=== PATIENT | female | born 1945 ===

== ENCOUNTER 2016-10-25 11:02 | Day surgery (SDC) | payer OTHER ==
[2016-07-19 07:22] VITALS: BMI 24.5
[2016-10-25] MEDS ORDERED: Propofol 10 mg/ml Inj (20 ML) ONE (13:28)
[2016-10-25] MEDS ORDERED: Ampicillin/Sulbactam 1.5 gm Inj ONE (13:45)
[2016-10-25] MEDS ORDERED: Sodium Chloride 0.9% 1,000 ML IV SCH (14:45)
[2016-10-25 15:28] VITALS: BP 116/61; PULSE 68; RESP 18; TEMP 97.7; O2SAT 99
== END 2016-10-25 15:59 | disposition home or self-care (01) ==
LOC: ENDO 11:02
PROVIDERS: ATTEND Internal Medicine Gastroenterology
DX: K51.90 Ulcerative colitis, unspecified, without complications (principal); K64.8 Other hemorrhoids
CPT/HCPCS: 45380; 88305; J0295; J2704; J3010; J7040 ×2

== ENCOUNTER 2017-09-17 13:45 | Emergency (ER) | payer OTHER ==
[2017-09-17 13:45] VITALS: BMI 24.5
--- NOTE | 2017-09-17 15:12 | RAD ---
HISTORY: cough COMPARISON: 07/29/2016 TECHNIQUE: Chest PA and lateral FINDINGS: LUNGS: No active pulmonary disease. PLEURA: No significant pleural effusion identified. No pneumothorax apparent. CARDIOVASCULAR: Normal. OSSEOUS STRUCTURES: No significant abnormalities. VISUALIZED UPPER ABDOMEN: Normal. OTHER FINDINGS: None. IMPRESSION: No active disease.
[2017-09-17] MEDS ORDERED: Amoxicillin-Clav 875-125 mg Tab PO STA (15:14)
--- NOTE | 2017-09-17 15:15 | ED PDOC ---
Arrival/HPI - General Chief Complaint: Cough, Cold, Congestion Time Seen by Provider: 09/17/17 14:29 Historian: Patient - History of Present Illness Narrative History of Present Illness (Text): 09/17/17 15:16 71yo female with PMhx of Cholangitis who present with 3weeks history of cough, nasal congestion, facial pressure and right ear pain. States cough started 3weeks ago. Notes that she was seen by her PMD 2weeks ago and was only given Promethazine. States taking the Promethazine without relieve. She reports multiple history of sinusitis. Denies fever, chills, SOB, diaphoresis, sick contact, travel, any other complaint. Past Medical History - Provider Review Nursing Documentation Reviewed: Yes - Past History Past History: No Previous - Infectious Disease Hx of Infectious Diseases: None - Tetanus Immunization Tetanus Immunization: Unknown - Cardiac Hx Pacemaker: No - Pulmonary Hx Respiratory Disorders: Yes Hx Asthma: Yes Hx Chronic Obstructive Pulmonary Disease (COPD): Yes - Neurological Hx Paralysis: No - HEENT Hx HEENT Disorder: Yes Hx Deafness: Yes (left) - Renal Hx Renal Disorder: No - Endocrine/Metabolic Hx Endocrine Disorders: No - Hematological/Oncological Hx Blood Disorders: Yes Hx Blood Transfusions: No Hx Blood Transfusion Reaction: No Hx Cirrhosis: Yes - Integumentary Hx Dermatological Disorder: No - Musculoskeletal/Rheumatological Hx Musculoskeletal Disorders: Yes - Gastrointestinal Hx Gastrointestinal Disorders: Yes Hx Colitis: Yes (Ulcerative Colitis dx 2010) - Genitourinary/Gynecological Hx Genitourinary Disorders: Yes Hx Hematuria: Yes - Psychiatric Hx Psychophysiologic Disorder: No Hx Emotional Abuse: No Hx Physical Abuse: No Hx Substance Use: No - Past Surgical History Past Surgical History: Non-Contributing - Surgical History Hx Section: Yes Other/Comment: sinus surgery. gallstones - Anesthesia Hx Anesthesia: Yes Hx Anesthesia Reactions: No Hx Malignant Hyperthermia: No - Suicidal Assessment Feels Threatened In Home Enviroment: No Family/Social History - Physician Review Nursing Documentation Reviewed: Yes Family/Social History: Unknown Family HX Smoking Status: Never Smoked Hx Alcohol Use: No Hx Substance Use: No Hx Substance Use Treatment: No Allergies/Home Meds Allergies/Adverse Reactions: Allergies aspirin Allergy (Verified 09/17/17 13:51) ANAPHYLAXIS ibuprofen Allergy (Verified 09/17/17 13:51) ANAPHYLAXIS Home Medications: Home Meds Medication Instructions Recorded Confirmed Albuterol Sulfate [Proair 2 puff IH BID PRN 02/17/16 09/17/17 Respiclick] Fluticasone Nasal [Flonase] 1 spr NS BID 06/28/16 09/17/17 Calcium Carbonate/Vitamin D3 1 tab PO DAILY 10/16/16 09/17/17 [Calcium 500 + Vit D Caplet] Fluticasone/Salmeterol 250/50 1 puff IH BID 10/16/16 09/17/17 [Advair Diskus] Budesonide [Rhinocort Allergy] 1 spray INH DAILY 10/25/16 09/17/17 Ciprofloxacin/Dexamethasone 1 drop TOP DAILY PRN 10/25/16 09/17/17 [Ciprodex Otic] Review of Systems - Physician Review All systems were reviewed & negative as marked: Yes - Review of Systems Constitutional: Normal Eyes: Normal ENT: Other (Right ear pain). absent: Rhinorrhea (Nasal congestion) Respiratory: Cough. absent: SOB, Sputum, Wheezing Cardiovascular: Normal Gastrointestinal: Normal Genitourinary Female: Normal Musculoskeletal: Normal Skin: Normal Neurological: Normal Endocrine: Normal Hemo/Lymphatic: Normal Psychiatric: Normal Physical Exam Vital Signs Reviewed: Yes Vital Signs Temp Pulse Resp BP Pulse Ox 09/17/17 16:29 19 99 09/17/17 16:28 98.0 F 80 18 130/77 96 09/17/17 13:52 99.2 F 99 H 18 129/65 100 Temperature: Afebrile Blood Pressure: Normal Pulse: Regular Respiratory Rate: Normal Appearance: Positive for: Well-Appearing, Non-Toxic, Comfortable Pain Distress: None Mental Status: Positive for: Alert and Oriented X 3 - Systems Exam Head: Present: Atraumatic, Normocephalic Pupils: Present: PERRL Extroacular Muscles: Present: EOMI Conjunctiva: Present: Normal Ears: Present: Erythema (Right TM), Fluid (Right TM). No: Normal Canal, TM Bulging, TM Perf Mouth: Present: Moist Mucous Membranes Nose (Internal): Present: Edematous (B/L turbinates), Other (Tenderness over the frontal and maxillary sinuses) Neck: Present: Normal Range of Motion Respiratory/Chest: Present: Clear to Auscultation, Good Air Exchange. No: Respiratory Distress, Accessory Muscle Use Cardiovascular: Present: Regular Rate and Rhythm, Normal S1, S2. No: Murmurs Abdomen: Present: Normal Bowel Sounds. No: Tenderness, Distention, Peritoneal Signs Back: Present: Normal Inspection Upper Extremity: Present: Normal Inspection. No: Cyanosis, Edema Lower Extremity: Present: Normal Inspection. No: Edema Neurological: Present: GCS=15, CN II-XII Intact, Speech Normal Skin: Present: Warm, Dry, Normal Color. No: Rashes Psychiatric: Present: Alert, Oriented x 3, Normal Insight, Normal Concentration Medical Decision Making ED Course and Treatment: 09/17/17 22:26 Pt in ED for stated history. Her CXR was negative. Rapid flu was negative. PT have sinusitis clinically and was treated with Augmentin. Referred to her PMD. - Lab Interpretations Lab Results: Lab Results 09/17/17 15:22: Influenza Typ A,B (EIA) Negative for flu a/b - RAD Interpretation Radiology Orders: 09/17/17 14:29 CHEST TWO VIEWS (PA/LAT) [RAD] Stat - Medication Orders Current Medication Orders: Discontinued Medications Amoxicillin/Clavulanate Potassium (Augmentin 875 Mg-125 Mg Tab) 1 tab PO STAT STA PRN Reason: Protocol Stop: 09/17/17 15:15 Last Admin: 09/17/17 15:37 Dose: 1 tab Prednisone (Prednisone Tab) 40 mg PO STAT STA Stop: 09/17/17 15:16 Last Admin: 09/17/17 15:37 Dose: 40 mg Disposition/Present on Arrival - Present on Arrival Any Indicators Present on Arrival: No History of DVT/PE: No History of Uncontrolled Diabetes: No Urinary Catheter: No History of Decub. Ulcer: No History Surgical Site Infection Following: None - Disposition Have Diagnosis and Disposition been Completed?: Yes Diagnosis: Sinusitis, Cough Disposition: HOME/ ROUTINE Disposition Time: 16:15 Patient Plan: Discharge Condition: STABLE Discharge Instructions (ExitCare): Sinusitis in Adults Additional Instructions: Take medication as directed Follow up with your doctor Return to ED for any new symptoms Prescriptions: Amoxicillin/Clavulanate [Augmentin 875 MG-125 MG] 1 tab PO BID #14 tab Referrals: [facility] at [facility] [place] [Outside] - Follow up with primary Forms: [employer] (Bahamian)
[2017-09-17 16:29] VITALS: BP 130/77; PULSE 80; TEMP 98
[2017-09-17 16:30] VITALS: RESP 19; O2SAT 99
== END 2017-09-17 16:39 | disposition home or self-care (01) ==
LOC: ED 13:45
DX: J32.9 Chronic sinusitis, unspecified (principal); R05 Cough

== ENCOUNTER 2017-11-11 09:46 | Day surgery (SDC) | payer OTHER ==
[2017-11-11 10:17] VITALS: BMI 23.1
--- NOTE | 2017-11-11 10:29 | ED PDOC ---
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 Patient reports she will be starting chemotherapy tomorrow. Patient notes mild abdominal discomfort, which she has been experiencing intermittently for some time now. Patient denies any fever chills, headache, dizziness, chest pain, shortness of breath, dyspnea on exertion, cough, nausea, vomiting, diarrhea, back pain, neck pain, or any other complaint. PMD: Dr. Nguyen Past Medical History - Provider Review Nursing Documentation Reviewed: Yes - Past History Past History: No Previous - Infectious Disease Hx of Infectious Diseases: None - Tetanus Immunization Tetanus Immunization: Unknown - Cardiac Hx Pacemaker: No - Pulmonary Hx Respiratory Disorders: Yes Hx Asthma: Yes Hx Chronic Obstructive Pulmonary Disease (COPD): Yes - Neurological Hx Paralysis: No - HEENT Hx HEENT Disorder: Yes Hx Deafness: Yes (left) - Renal Hx Renal Disorder: No - Endocrine/Metabolic Hx Endocrine Disorders: No - Hematological/Oncological Hx Blood Disorders: No - Integumentary Hx Dermatological Disorder: No - Musculoskeletal/Rheumatological Hx Musculoskeletal Disorders: Yes - Gastrointestinal Hx Gastrointestinal Disorders: Yes Hx Colitis: Yes (Ulcerative Colitis dx 2011) - Genitourinary/Gynecological Hx Genitourinary Disorders: Yes Hx Hematuria: Yes - Psychiatric Hx Psychophysiologic Disorder: Yes Hx Substance Use: No - Past Surgical History Past Surgical History: Non-Contributing - Surgical History Other/Comment: sinus sx 4x - Anesthesia Hx Anesthesia: Yes Hx Anesthesia Reactions: No Hx Malignant Hyperthermia: No - Suicidal Assessment Feels Threatened In Home Enviroment: No Family/Social History - Physician Review Nursing Documentation Reviewed: Yes Family/Social History: No Known Family HX Smoking Status: Never Smoked Hx Alcohol Use: No Hx Substance Use: No Hx Substance Use Treatment: No Allergies/Home Meds Allergies/Adverse Reactions: Allergies aspirin Allergy (Verified 11/11/17 10:13) ANAPHYLAXIS ibuprofen Allergy (Verified 11/11/17 10:13) ANAPHYLAXIS Home Medications: Home Meds Medication Instructions Recorded Confirmed Albuterol Sulfate [Proair 2 puff IH BID PRN 02/17/16 11/11/17 Respiclick] Fluticasone Nasal [Flonase] 1 spr NS BID 06/28/16 11/11/17 Calcium Carbonate/Vitamin D3 1 tab PO DAILY 10/16/16 11/11/17 [Calcium 500 + Vit D Caplet] Fluticasone/Salmeterol 250/50 1 puff IH BID 10/16/16 11/11/17 [Advair Diskus] Budesonide [Rhinocort Allergy] 1 spray INH DAILY 10/25/16 11/11/17 Ciprofloxacin/Dexamethasone 1 drop TOP DAILY PRN 10/25/16 11/11/17 [Ciprodex Otic] Review of Systems - Physician Review All systems were reviewed & negative as marked: Yes - Review of Systems Constitutional: absent: Fevers, Night Sweats Respiratory: absent: SOB, Cough Cardiovascular: absent: Chest Pain, LUCIA Gastrointestinal: Abdominal Pain. absent: Diarrhea, Nausea, Vomiting Musculoskeletal: absent: Back Pain, Neck Pain Neurological: absent: Headache, Dizziness Physical Exam Vital Signs Reviewed: Yes Vital Signs Temp Pulse Resp BP Pulse Ox 11/11/17 15:08 99 11/11/17 13:05 97.9 F 79 18 136/80 99 11/11/17 12:55 98.4 F 74 16 125/63 99 11/11/17 12:40 98.4 F 74 16 122/63 99 11/11/17 12:25 98.4 F 78 16 133/78 99 11/11/17 10:14 82 17 125/71 100 Blood Pressure: Normal Pulse: Regular Respiratory Rate: Normal Appearance: Positive for: Well-Appearing, Non-Toxic, Comfortable Pain Distress: None Mental Status: Positive for: Alert and Oriented X 3 - Systems Exam Head: Present: Atraumatic, Normocephalic Pupils: Present: PERRL Extroacular Muscles: Present: EOMI Conjunctiva: Present: Normal Mouth: Present: Moist Mucous Membranes Neck: Present: Normal Range of Motion Respiratory/Chest: Present: Clear to Auscultation, Good Air Exchange. No: Respiratory Distress, Accessory Muscle Use Cardiovascular: Present: Regular Rate and Rhythm, Normal S1, S2. No: Murmurs Abdomen: Present: Tenderness (epigastric tenderness), Normal Bowel Sounds, Guarding, Other (Wounds are clean, dry and intact). No: Distention, Peritoneal Signs, Rebound Back: Present: Normal Inspection Upper Extremity: Present: Normal Inspection. No: Cyanosis, Edema Lower Extremity: Present: Normal Inspection. No: Edema Neurological: Present: GCS=15, CN II-XII Intact, Speech Normal Skin: Present: Warm, Dry, Normal Color. No: Rashes Psychiatric: Present: Alert, Oriented x 3, Normal Insight, Normal Concentration Medical Decision Making ED Course and Treatment: 11/11/17 10:28 Impression: Patient is a 72 year old female who presents for port placement. Patient notes old abdominal pain. Differential Diagnosis included but are not limited to: Port placement, Acute on chronic abdominal pain Plan: -- Labs -- Pepcid -- Reassess and disposition Prior Visits: Notes and results from previous visits were reviewed. Patient last seen in ED on 09/17/17 complaining of cough, cold, and congestion. Progress Notes: 11/11/17 10:[address] Wan Allan, accepts patient for port placement. Patient aware of and in agreement with plan. Labs reviewed. - Lab Interpretations Lab Results: 11/11/17 10:30 11/11/17 10:30 Lab Results 11/11/17 10:30: Sodium 141, Potassium 3.8, Chloride 108 H, Carbon Dioxide 23, Anion Gap 14, BUN 13, Creatinine 0.6 L, Est GFR ( Amer) > 60, Est GFR ( Non-Af Amer) > 60, Random Glucose 106, Calcium 8.7, Total Bilirubin 2.2 H, AST 78 H D, ALT 48, Alkaline Phosphatase 266 H, Total Protein 7.4, Albumin 3.1, Globulin 4.4, Albumin/Globulin Ratio 0.7 L, Lipase 201 11/11/17 10:30: WBC 5.4, RBC 3.34 L, Hgb 10.6 L, Hct 31.8 L, MCV 95.2 D, MCH 31.7, MCHC 33.3, RDW 14.8 H, Plt Count 222, MPV 11.6 H, Gran % 64.6, Lymph % ( Auto) 20.4 L, [place] % (Auto) 7.0 H, Eos % (Auto) 7.8 H, Baso % (Auto) 0.2, Gran # 3.49, Lymph # (Auto) 1.1 L, [place] # (Auto) 0.4, Eos # (Auto) 0.4, Baso # (Auto ) 0.01 I have reviewed the lab results: Yes - RAD Interpretation Radiology Orders: 11/11/17 10:08 CAR PERIPHERAL VASCULAR ORDER [VASCULAR] Stat - Medication Orders Current Medication Orders: Acetaminophen (Tylenol 325mg Tab) 650 mg PO Q4 PRN PRN Reason: Pain, Mild (1-3) Sodium Chloride (Sodium Chloride 0.45%) 1,000 mls @ 80 mls/hr IV .[id number] EMILIE Ondansetron HCl (Zofran Inj) 4 mg IVP Q6H PRN PRN Reason: Nausea/Vomiting Oxycodone/Acetaminophen (Percocet 5/325 Mg Tab) 1 tab PO Q4H PRN PRN Reason: Pain, moderate (4-7) Stop: 11/14/17 12:12 Discontinued Medications Famotidine (Pepcid 20mg/50ml Premix) 20 mg in 50 mls @ 100 mls/hr IVPB STAT STA Stop: 11/11/17 10:59 Last Admin: 11/11/17 10:49 Dose: 100 mls/hr eMAR Start Stop Document 11/11/17 10:49 SZA (Rec: 11/11/17 10:50 SZA [id number]) Intravenous Solution Start Date 11/11/17 Start Time 10:50 End Date 11/11/17 End time 11:10 Total Infusion Time 20 - Scribe Statement The provider has reviewed the documentation as recorded by the Scribe Erasmo [employer] Provider Scribe Attestation: All medical record entries made by the Scribe were at my direction and personally dictated by me. I have reviewed the chart and agree that the record accurately reflects my personal performance of the history, physical exam, medical decision making, and the department course for this patient. I have also personally directed, reviewed, and agree with the discharge instructions and disposition. Disposition/Present on Arrival - Present on Arrival Any Indicators Present on Arrival: No History of DVT/PE: No History of Uncontrolled Diabetes: No Urinary Catheter: No History of Decub. Ulcer: No History Surgical Site Infection Following: None - Disposition Have Diagnosis and Disposition been Completed?: Yes Diagnosis: Abdominal pain Disposition: HOME/ ROUTINE Disposition Time: 10:29 Patient Plan: Admission Condition: FAIR
[2017-11-11] MEDS ORDERED: Famotidine 20mg/50ml 20 MG/50 ML BAG IVPB STA (10:30)
[2017-11-11] MEDS ORDERED: Lidocaine 2% Inj (20ml) ONE (10:51)
[2017-11-11 10:52] LABS: BASO # 0.01 K/mm3 (0.0-2.0); BASO % 0.2 % (0.0-3.0); EOS # 0.4 (0.0-0.7); EOS % 7.8 % (1.5-5.0); GRAN # 3.49 (1.4-6.5); GRAN % 64.6 % (50.0-68.0); HEMOGLOBIN 10.6 g/dL (12.0-16.0); LYMPH # 1.1 (1.2-3.4); LYMPH % 20.4 % (22.0-35.0); MEAN CELL VOLUME 95.2 fl (80.0-105.0); MEAN CORPUSCULAR HEMOGLOBIN 31.7 pg (25.0-35.0); MEAN CORPUSCULAR HGB CONC 33.3 g/dl (31.0-37.0); MEAN PLATELET VOLUME 11.6 fl (7.0-11.0); MONO # 0.4 (0.1-0.6); RBC 3.34 10^6/uL (3.5-6.1); RED CELL DISTRIBUTION WIDTH 14.8 % (11.5-14.5); WHITE BLOOD COUNT 5.4 10^3/ul (4.5-11.0)
[2017-11-11 11:01] LABS: ALB/GLOB RATIO 0.7 (1.1-1.8); ALBUMIN 3.1 g/dL (3.0-4.8); ALT/SGPT 48 U/L (7-56); AST/SGOT 78 U/L (14-36); BLOOD UREA NITROGEN 13 mg/dL (7-21); CALCIUM 8.7 mg/dL (8.4-10.5); GFR AFRICAN-AMERICAN > 60; GFR NON-AFRICAN AMERICAN > 60; LIPASE 201 U/L (23-300)
[2017-11-11] MEDS ORDERED: Midazolam 2 MG/2 ML VIAL ONE ×2 (11:29→11:43)
[2017-11-11] MEDS ORDERED: Oxycodone/Acetaminophen 5/325 mg Tab PO PRN (12:11)
[2017-11-11] MEDS ORDERED: Sodium Chloride 0.45% 1,000 ML IV SCH (12:15)
[2017-11-11 12:34] VITALS: O2SAT 99
[2017-11-11 13:26] VITALS: BP 136/80; PULSE 79; RESP 18; TEMP 97.9
--- NOTE | 2017-11-11 13:59 | VASCULAR ---
PROCEDURE: Ultrasound and fluoroscopic right internal jugular venous access port. CLINICAL HISTORY: Cholangiocarcinoma.Venous port for chemotherapy. PHYSICIAN(S): Wan Allan M.D. TECHNIQUE: The relative risks and indications of the procedure were explained to the patient and consent obtained. The patient was placed supine on the arteriogram table and the right neck and chest prepped and draped in the usual sterile fashion. Conscious sedation monitoring was provided throughout the procedure by a nurse. Antibiotics were given prior to the procedure. Under direct ultrasound guidance, the right internal jugular vein was punctured with a micro-puncture set. A 0.035 angled Glidewire was advanced into the IVC. A 4 cm incision was made below the right clavicle and the pocket blunted dissected. A 8 Faroese single-lumen catheter, 18 cm long, was advanced to the SVC/RA junction. The catheter was trimmed and attached to the port. The port aspirates and injects easily. The port was placed in the pocket and closed in 2 layers. The patient tolerated the procedure well. IMPRESSION: Ultrasound and fluoroscopically placed right internal jugular venous access port.
== END 2017-11-11 15:00 | disposition home or self-care (01) ==
LOC: ED 09:46 → SDS 11:07 → CATH 11:07
PROVIDERS: ATTEND Radiology Vascular & Interventional Radiology
DX: C22.1 Intrahepatic bile duct carcinoma (principal); J44.9 Chronic obstructive pulmonary disease, unspecified; Z88.6 Allergy status to analgesic agent
CPT/HCPCS: 36561; 76937; 77001; 80053; 83690; 85025; 96365; 99152; 99153; 99284; C1769; C1788; J1644; J2250; J2405; J3010

== ENCOUNTER 2017-12-24 09:54 | Inpatient (IN) | payer OTHER ==
[2017-12-24] MEDS ORDERED: Sodium Chloride 0.9% 1,000 ML IV STA ×2 (11:25→15:52)
[2017-12-24 12:21] LABS: HEMOGLOBIN 8.1 g/dL (12.0-16.0); LYMPH # 0.5 (1.2-3.4); LYMPH % 53.8 % (22.0-35.0); MEAN CELL VOLUME 92.2 fl (80.0-105.0); MEAN CORPUSCULAR HEMOGLOBIN 31.4 pg (25.0-35.0); MONO # 0.4 (0.1-0.6); MONO % 46.2 % (1.0-6.0); RBC 2.58 10^6/uL (3.5-6.1); RED CELL DISTRIBUTION WIDTH 20.2 % (11.5-14.5)
[2017-12-24 12:30] LABS: ALB/GLOB RATIO 0.6 (1.1-1.8); ALBUMIN 2.3 g/dL (3.0-4.8); ALT/SGPT 50 U/L (7-56); AST/SGOT 43 U/L (14-36); BLOOD UREA NITROGEN 14 mg/dL (7-21); GFR AFRICAN-AMERICAN > 60; GFR NON-AFRICAN AMERICAN > 60
[2017-12-24 12:38] LABS: PLATELET COUNT 31 10^3/uL (120.0-450.0); WHITE BLOOD COUNT 0.9 10^3/ul (4.5-11.0)
[2017-12-24 12:40] LABS: TROPONIN I < 0.01 ng/mL
--- NOTE | 2017-12-24 12:42 | ED PDOC ---
Arrival/HPI - Critical Care Critical Care Minutes: 75 minutes - General Chief Complaint: Weakness/Neurological Deficit Time Seen by Provider: 12/24/17 10:36 - Critical Care Narrative Critical Care (Text): 12/24/17 13:59 This is a 72 yo F with PMH of including Ulcerative Collitis, Cirrhosis, COPD, Giant cell arteritis, primary sclerosing cholangitis, and recently diagnosed Biliary cancer with mets to liver s/p biliary stent placement (October 2017) who presents with progressively worsening diarrhea x1 week, worsening weakness, lethargy, and acute onset jaundice. Hx primarily through daughters at bedside given patient's lethargy, but she is oriented x3 (self, location, year), and is able to follow non-taxing commands appropriately. As per daughters, patient underwent chemotherapy for her biliary cancer most recently 7 days prior (). Since that time, she has developed worsening diarrhea, watery non-bloody, started at 2 times per day as per patient, now up to >5 times per day. Patient denies any emesis, but does report nausea and "spitting up" clear to white phlegm mutiple times per day for the last 2 days. Denies chest pain, shortness of breath, hemoptysis, syncope, or focal weakness, but daughters report she has been generally weak to the point of being essentially bedridden for the last 3 days. Denies fecal incontinence, but has accidents due to being unable to reach the bathroom from her bed in time (as per daughters). Complaining of chills throughout exam despite multiple blankets. 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 Arora, now Dr. Nguyen ([facility]) Past Medical History - Past History Past History: No Previous - Infectious Disease Hx of Infectious Diseases: None - Tetanus Immunization Tetanus Immunization: Unknown - Cardiac Hx Pacemaker: No - Pulmonary Hx Respiratory Disorders: Yes Hx Asthma: Yes Hx Chronic Obstructive Pulmonary Disease (COPD): Yes - Neurological Hx Paralysis: No - HEENT Hx HEENT Disorder: Yes Hx Deafness: Yes (left) - Renal Hx Renal Disorder: No - Endocrine/Metabolic Other/Comment: Stage 4 biliary CA - Hematological/Oncological Hx Cancer: Yes (stage 4 biliary CA) - Integumentary Hx Dermatological Disorder: No - Musculoskeletal/Rheumatological Hx Musculoskeletal Disorders: Yes - Gastrointestinal Hx Gastrointestinal Disorders: Yes Hx Colitis: Yes (Ulcerative Colitis dx 2010) - Genitourinary/Gynecological Hx Genitourinary Disorders: Yes Hx Hematuria: Yes - Psychiatric Hx Psychophysiologic Disorder: Yes Hx Substance Use: No - Past Surgical History Past Surgical History: Non-Contributing - Surgical History Other/Comment: sinus sx 4x - Anesthesia Hx Anesthesia: Yes Hx Anesthesia Reactions: No Hx Malignant Hyperthermia: No - Suicidal Assessment Feels Threatened In Home Enviroment: No Family/Social History Family/Social History: Hypertension, Other (asthma) Smoking Status: Never Smoked Hx Alcohol Use: No Hx Substance Use: No Hx Substance Use Treatment: No Allergies/Home Meds Allergies/Adverse Reactions: Allergies aspirin Allergy (Verified 11/11/17 10:13) ANAPHYLAXIS ibuprofen Allergy (Verified 11/11/17 10:13) ANAPHYLAXIS Home Medications: Home Meds Medication Instructions Recorded Confirmed Albuterol Sulfate [Proair 2 puff IH BID PRN 02/17/16 11/11/17 Respiclick] Fluticasone Nasal [Flonase] 1 spr NS BID 06/28/16 11/11/17 Calcium Carbonate/Vitamin D3 1 tab PO DAILY 10/16/16 11/11/17 [Calcium 500 + Vit D Caplet] Fluticasone/Salmeterol 250/50 1 puff IH BID 10/16/16 11/11/17 [Advair Diskus] Budesonide [Rhinocort Allergy] 1 spray INH DAILY 10/25/16 11/11/17 Ciprofloxacin/Dexamethasone 1 drop TOP DAILY PRN 10/25/16 11/11/17 [Ciprodex Otic] Review of Systems - Physician Review All systems were reviewed & negative as marked: Yes (as per HPI) Physical Exam Vital Signs Reviewed: Yes Temperature: Febrile Blood Pressure: Normal Pulse: Tachycardic Respiratory Rate: Tachypneic Appearance: Positive for: Ill-Appearing, Cachectic, Other (grossly jaundiced) Pain Distress: Mild Mental Status: Positive for: Alert and Oriented X 3, Lethargic. No: Confused - Systems Exam Head: Present: Atraumatic. No: Tenderness, Contusion, Swelling Pupils: Present: PERRL. No: Pinpoint Extroacular Muscles: Present: EOMI. No: Other Conjunctiva: Present: Icteric. No: Injected Mouth: Present: Dry. No: Moist Mucous Membranes, Normal Lips (cracked and dry appearing lips) Nose (External): Present: Atraumatic. No: Abrasion, Laceration Nose (Internal): Present: No Active Bleeding. No: Moist, Epistaxis Neck: Present: Normal Range of Motion. No: JVD Respiratory/Chest: Present: Decreased Breath Sounds. No: Respiratory Distress, Accessory Muscle Use, Wheezes, Rales, Rhonchi Cardiovascular: Present: Normal S1, S2, Peripheal Pulses Present (+1 bilateral radial pulses, unable to palpate LE pulses), Tachycardic. No: Regular Rate and Rhythm, Murmurs, Irregular Rhythm, Bradycardic Abdomen: Present: Distention (not firm or rigid, but distended). No: Tenderness , Normal Bowel Sounds (hyperactive bowel sounds), Feeding Tubes Back: Present: Normal Inspection Upper Extremity: Present: Normal Inspection, Normal ROM (minimal active ROM spontaneously, but passive ROM intact and able to move on command), NORMAL PULSES. No: Cyanosis, Edema, Tenderness, Swelling, Erythema Lower Extremity: Present: Edema (+1 pitting edema in fee/ankles covered by socks , +2 for remaineder of bilateral LE below the knees), Normal ROM (minimal active ROM spontaneously, but passive ROM intact and able to move on command), Swelling, Temperature Abnormalties (cool to palpation). No: Normal Inspection, CALF TENDERNESS, NORMAL PULSES (unable to palpate), Tenderness, Erythema Neurological: Present: GCS=15, Other (minimal spontaneous movements due to lethargy, but active ROM on command appropriate). No: Speech Normal (slow and faint speech, but purposeful and appropriate speech) Skin: Present: Warm, Dry, Other (Grossly icteric). No: Normal Color Lymphatic: Present: Cervical Adenopathy Psychiatric: Present: Oriented x 3, Lethargic. No: Alert (awake but very lethargic), Normal Concentration Vital Signs Temp Pulse Resp BP Pulse Ox 12/24/17 16:14 100 F H 112 H 16 108/56 L 12/24/17 14:25 99.2 F 99 H 18 116/65 99 12/24/17 12:25 100.9 F H 102 H 18 118/61 99 12/24/17 11:33 109 H 18 121/64 99 12/24/17 10:18 102.6 F H 110 H 17 119/63 99 Medical Decision Making Re-evaluation Time: 14:30 Reassessment Condition: Re-examined, Unchanged - Critical Care Critical Care Minutes: 75 minutes ED Course and Treatment: 12/24/17 Patient Seen With Resident: In agreement with resident note which contains more details about the patient. Patient was seen and evaluated with resident. Came up with plan and treatment together. EKG shows sinus tachycardia at [address]/T wave changes. Interpreted by me. (Gilberto Baca) 12/24/17 14:10 Concerning for possible C. Diff colitis given repeated health care setting and recent chemotherapy. Will obtain CT abd pevis, CXR given cough with clear sputum (r/o occult pneumonia), CBC, CMP, Mag, Phos, EKG, blood and urine cultures, UA, stool C diff. Will also given 1L NS over 2 hours given overtly clinically dry appearing in setting of worsening diarrhea. Will start empiric antibiotics after cultures drawn. 12/24/17 15:03 Lab reports WBCs 0.9, Platelets 31, ordered repeat draw to confirm. Given presenting temp 102.6, concern for neutropenic fever, start neutropenic precautions, given Cefepime 2g x1. Chemistries concerning for elevated TBili, CT abd/pelvis notable for possible pancolitis, biliary duct dilation around stent. 12/24/17 15:18 Hgb 8.1, Plt 31, and WBCs 0.9, ANC ~ 50 (confirmed by lab). Case discussed with pt's Heme-onc, Dr. Staton, who ordered Neuopeng 100mg SC (first dose now), 2 units pRBCs (likely falsely elevated Hgb given dehydrated state 2/2 diarrhea) , and platelets from single donor 1 unit. After discussion with Heme-onc, coags returned, notable for INR 2.0 on no anticoagulation; ordered 2 units FFP. After prolonged discussion with daughters regarding Code Status with pt's daughters, especially in light of current condition, daughters report patient currently wishes to remain full code, but agree that family discussion is needed , and that her condition is grave and likely warrants DNR/DNI, pending discussion with patient and her consent. Full code status ordered for now. 12/24/17 15:48 Case discussed with PMD, Dr. Nguyen. Agrees with admission, requests ICU eval for ICU placement. ID consult (Dr. Cheng) and GI consult (Dr. Altman) placed as per his orders. Magnetic Grinder Operator notified regarding consult, agrees to come evaluate patient. 12/24/17 16:22 Seen by Magnetic Grinder Operator Dr. Ojeda, agrees to ICU admision. Admission orders place. Started on Merrem and Vanco as per ID. Patient seen, reviewed, and discussed with attending, Dr. Baca. ([facility]) - Lab Interpretations Lab Results: 12/24/17 12:00 12/24/17 12:00 Lab Results 12/24/17 16:05: Fibrin Degrad Products >10 <40 ug/ml 12/24/17 15:51: Fibrinogen 358 12/24/17 14:02: POC Glucose (mg/dL) 85 12/24/17 13:30: Blood Type O POSITIVE, Antibody Screen Negative, Crossmatch See Detail, BBK History Checked Patient has bt 12/24/17 13:30: JEAN MARIE, Poly Interpret Negative 12/24/17 13:25: Manual Plt Count 30 L* 12/24/17 13:25: Lactate Dehydrogenase 293 L 12/24/17 13:25: PT 23.1 H, INR 2.00 H, APTT 31.9 12/24/17 12:00: Sodium 134, Potassium 3.8, Chloride 104, Carbon Dioxide 21, Anion Gap 12, BUN 14, Creatinine 0.5 L, Est GFR ( Amer) > 60, Est GFR ( Non-Af Amer) > 60, Random Glucose 94, Calcium 8.0 L, Phosphorus 2.9, Magnesium 1.7, Total Bilirubin 7.8 H, AST 43 H D, ALT 50, Alkaline Phosphatase 187 H D, Troponin I < 0.01, Total Protein 5.9, Albumin 2.3 L, Globulin 3.6, Albumin/ Globulin Ratio 0.6 L 12/24/17 12:00: WBC 0.9 L* D, RBC 2.58 L, Hgb 8.1 L D, Hct 23.8 L, MCV 92.2 D, MCH 31.4, MCHC 34.0, RDW 20.2 H, Plt Count 31 L*, Gran % 0.0 L, Lymph % (Auto) 53.8 H, Mcculloch % (Auto) 46.2 H, Eos % (Auto) 0.0 L, Baso % (Auto) 0.0, Gran # 0.00 L, Lymph # (Auto) 0.5 L, Mcculloch # (Auto) 0.4, Eos # (Auto) 0.0, Baso # (Auto ) 0.00, Neutrophils % (Manual) 4 L, Lymphocytes % (Manual) 53 H, Monocytes % ( Manual) 43 H, Platelet Evaluation Low, Hypochromasia 1+ - RAD Interpretation Radiology Orders: 12/24/17 11:25 ABD & PELVIS W/O PO OR IV CONT [CT] Stat CHEST ONE VIEW [RAD] Stat - Medication Orders Current Medication Orders: Meropenem 500 mg/ Sodium (Chloride) 50 mls @ 100 mls/hr IVPB Q8 EMILIE PRN Reason: Protocol Stop: 12/24/17 22:29 Vancomycin HCl (Vancomycin 1gm) 1 gm in 250 mls @ 167 mls/hr IVPB Q12H EMILIE PRN Reason: Protocol Metronidazole (Flagyl) 500 mg in 100 mls @ 100 mls/hr IVPB Q8 EMILIE PRN Reason: Protocol Sodium Chloride (Sodium Chloride 0.9%) 1,000 mls @ 999 mls/hr IV .Q1H1M STA Stop: 12/24/17 16:52 Dextrose/Sodium Chloride (Dextrose 5%/0.9% Ns 1000 Ml) 1,000 mls @ 100 mls/hr IV .Q10H EMILIE Discontinued Medications Sodium Chloride (Sodium Chloride 0.9%) 1,000 mls @ 500 mls/hr IV .Q2H STA Stop: 12/24/17 13:24 Last Admin: 12/24/17 11:39 Dose: 500 mls/hr eMAR Start Stop Document 12/24/17 11:39 LA (Rec: 12/24/17 11:40 LA [id number]) Intravenous Solution Start Date 06/06/18 Start Time 11:39 End Date 12/24/17 End time 13:39 Total Infusion Time 120 Cefepime HCl (Maxipime 2gm) 2 gm in 100 mls @ 100 mls/hr IVPB STAT STA PRN Reason: Protocol Stop: 12/24/17 13:47 Last Admin: 12/24/17 14:38 Dose: 100 mls/hr eMAR Start Stop Document 12/24/17 14:38 LA (Rec: 12/24/17 14:39 LA [id number]) Intravenous Solution Start Date 12/24/17 Start Time 14:39 End Date 12/24/17 End time 15:39 Total Infusion Time 60 Pantoprazole Sodium (Protonix Inj) 40 mg IVP STAT STA Stop: 12/24/17 16:01 Disposition/Present on Arrival - Present on Arrival Any Indicators Present on Arrival: No History of DVT/PE: No History of Uncontrolled Diabetes: No Urinary Catheter: No History of Decub. Ulcer: No History Surgical Site Infection Following: None - Disposition Have Diagnosis and Disposition been Completed?: Yes Disposition Time: 16:30 Isolation: Special Contact (Neutropenic precautions) Patient Plan: Admission, ICU - Disposition Diagnosis: Cholangiocarcinoma, Neutropenic fever Disposition: HOSPITALIZED Patient Problems: Current Active Problems Problem Status Onset Cholangiocarcinoma Acute Condition: CRITICAL Forms: [employer] ([place])
[2017-12-24] MEDS ORDERED: Cefepime IV 2 gm in NS 2 GM/100 ML BAG IVPB STA (12:48)
[2017-12-24 12:57] LABS: HYPOCHROMIA 1+; LYMPHOCYTE 53 % (22.0-35.0); MONOCYTE 43 % (1.0-6.0); NEUTROPHIL 4 % (50.0-70.0); PLATELET ESTIMATE LOW (NORMAL)
--- NOTE | 2017-12-24 13:06 | RAD ---
PROCEDURE: CHEST RADIOGRAPH, 1 VIEW HISTORY: weakness, intermittently productive cough COMPARISON: 09/17/2017 FINDINGS: LUNGS: Clear. PLEURA: No pneumothorax or pleural fluid seen. CARDIOVASCULAR: Normal. OSSEOUS STRUCTURES: No significant abnormalities. VISUALIZED UPPER ABDOMEN: Normal. OTHER FINDINGS: Right-sided Port-A-Cath IMPRESSION: No active disease.
--- NOTE | 2017-12-24 13:07 | CT ---
PROCEDURE: CT Abdomen and Pelvis without intravenous contrast HISTORY: worsening diarrhea x7 days, assess for collitis COMPARISON: Noncontrast abdomen pelvis CT examination 07/19/2016. TECHNIQUE: Helical CT of the abdomen and pelvis was performed without oral or intravenous contrast as per referring physician request. Contrast dose: None Radiation dose: Total exam DLP = 395.33 mGy-cm. This CT exam was performed using one or more of the following dose reduction techniques: Automated exposure control, adjustment of the mA and/or kV according to patient size, and/or use of iterative reconstruction technique. FINDINGS: Lack of intravenous and oral contrast agents significantly limits interpretation. LOWER THORAX: Limited bilateral basilar patchy and linear atelectasis with underlying fibrosis not completely excluded. No pleural or pericardial effusion. Mild cardiomegaly identified. LIVER: Marked intrahepatic biliary dilatation is suggested, greater the left and right lobes liver with underlying hepatic lesions not excluded, particularly at the central liver and at the watershed zone between the left and right lobes anteriorly. A lengthy biliary stents identified from the level of the duodenum up to the main hepatic duct and possibly the main right lobe duct. Postop changes are identified at the right lobe liver once again. GALLBLADDER AND BILE DUCTS: Prior cholecystectomy. Persistent stranding seen in the gallbladder in local mesenteric fat. PANCREAS: Unremarkable. No gross lesion or ductal dilatation. SPLEEN: Unremarkable. ADRENALS: Unremarkable. No mass. KIDNEYS AND URETERS: Unremarkable. No hydronephrosis. No solid mass. VASCULATURE: Unremarkable. No aortic aneurysm. BOWEL: The stomach is only minimally distended with fluid and retained air. The bowel is not appear obstructed however there is right greater than left pericolic reaction and mural thickening follows a similar pattern greater the right than left colon segments with the transverse colon collapsed but likely significantly affected as well. The distal rectosigmoid follows the left hemicolon and does not appear tremendously thickened. There is mild ascites distributed in the perihepatic perisplenic spaces well as the bilateral pericolic gutters and the inferior dependent pelvis. Pattern suspicious for segmental or potential near ramos colitis. No abscess or free air is grossly evident. The cecum appears somewhat ectopic and is at the mid right flank anteriorly. No free intraperitoneal gas collection. APPENDIX: Not identified. Sinusitis is not favored difficult to evaluate for in this exam. PERITONEUM: Please see bowel section above. LYMPH NODES: Shotty retroperitoneal lymph nodes are identified without gross enlargement. BLADDER: Unremarkable. REPRODUCTIVE: Unremarkable. BONES: No acute fracture. OTHER FINDINGS: None. IMPRESSION: 1. Interval finding suspicious for at least segmental colitis affecting the proximal and mid large-bowel with the left hemicolon borderline affected. Pancolitis not excluded completely. Mesenteric reaction is seen local to the colon with mild abdominal and pelvic ascites present. The lack of oral and intravenous contrast limits evaluation No definite free air or abscess appreciable grossly. 2. Gross intrahepatic biliary dilatation with lengthy Wallstent radiating at either the main hepatic duct or the main right lobe hepatic duct and extending to duodenum. The lack of intravenous contrast limits the evaluation. 3. Prior cholecystectomy.
[2017-12-24 14:06] LABS: PARTIAL THROMBOPLASTIN TIME 31.9 Seconds (25.1-36.5); PROTHROMBIN TIME 23.1 SECONDS (9.4-12.5)
--- NOTE | 2017-12-24 15:47 | CARD ---
APPROVED REPORT EKG Measurement Heart [id number] <Conclusion> Sinus tachycardia NSSTW changes
[2017-12-24 16:42] LABS: HEPATITIS B SURFACE AG Negative (NEGATIVE)
[2017-12-24 16:47] LABS: HEPATITIS A IGM NEGATIVE (NEGATIVE); HEPATITIS B CORE AB NEGATIVE (NEGATIVE)
--- NOTE | 2017-12-24 16:48 | CP.PCM.CON ---
History of Present Illness - History of Present Illness History of Present Illness: General surgery consult for Dr. Rachel Gracia, PGY-1 Pt S & E at bedside at 1615 73F w/PMH sig for cholangiocarcinoma s/p metal biliary stent placement, aborted Whipple procedure (11/05) on chemo therapy, ulcerative colitis, primary sclerosing cholangitis consulted for pancolitis. Pt reports last chemo on 12/17 (has had 3-4 rounds) with subsequent onset of generalized weakness, lethargy, jaundice, diarrhea (#2-5 daily), nausea, emesis after oral intake, mouth pain, decreased appetite. Denies hematemesis, hematuria, hematochezia, fevers, chills , headache, other complaints. PMH: Cholangiocarcinoma s/p metal biliary stent placement, aborted Whipple procedure (11/05) on chemo therapy, Rheumatoid arthritis, osteoarthritis, fibromyalgia, asthma, pancreatitis, Ulcerative colitis, cirrhosis, Giant cell arteritis, primary sclerosing cholangitis PSH: Aborted Whipple, multiple biliary stents All:ASA, Ibuprofen SH: Hx tobacco use, denies ETOH, illicit drug PMD: Dr Nguyen Past Patient History - Infectious Disease Hx of Infectious Diseases: None - Tetanus Immunizations Tetanus Immunization: Unknown - Past Social History Smoking Status: Never Smoked - CARDIAC Hx Pacemaker: No - PULMONARY Hx Respiratory Disorders: Yes Hx Asthma: Yes Hx Chronic Obstructive Pulmonary Disease (COPD): Yes - NEUROLOGICAL Hx Paralysis: No - HEENT Hx HEENT Problems: Yes Hx Deafness: Yes (left) - RENAL Hx Chronic Kidney Disease: No - ENDOCRINE/METABOLIC Other/Comment: Stage 4 biliary CA - HEMATOLOGICAL/ONCOLOGICAL Hx Cancer: Yes (stage 4 biliary CA) - INTEGUMENTARY Hx Dermatological Problems: No - MUSCULOSKELETAL/RHEUMATOLOGICAL Hx Musculoskeletal Disorders: Yes - GASTROINTESTINAL Hx Gastrointestinal Disorders: Yes Hx Colitis: Yes (Ulcerative Colitis dx 2010) - GENITOURINARY/GYNECOLOGICAL Hx Genitourinary Disorders: Yes Hx Hematuria: Yes - PSYCHIATRIC Hx Psychophysiologic Disorder: Yes Hx Substance Use: No - SURGICAL HISTORY Other/Comment: sinus sx 4x - ANESTHESIA Hx Anesthesia: Yes Hx Anesthesia Reactions: No Hx Malignant Hyperthermia: No Meds Allergies/Adverse Reactions: Allergies Allergy/AdvReac Type Severity Reaction Status Date / Time aspirin Allergy ANAPHYLAXIS Verified 11/11/17 10:13 ibuprofen Allergy ANAPHYLAXIS Verified 04/24/18 10:13 - Medications Medications: Current Medications Meropenem 500 mg/ Sodium (Chloride) 50 mls @ 100 mls/hr IVPB Q8 EMILIE PRN Reason: Protocol Stop: 12/24/17 22:29 Vancomycin HCl (Vancomycin 1gm) 1 gm in 250 mls @ 167 mls/hr IVPB Q12H EMILIE PRN Reason: Protocol Metronidazole (Flagyl) 500 mg in 100 mls @ 100 mls/hr IVPB Q8 EMILIE PRN Reason: Protocol Sodium Chloride (Sodium Chloride 0.9%) 1,000 mls @ 999 mls/hr IV .Q1H1M STA Stop: 12/24/17 16:52 Dextrose/Sodium Chloride (Dextrose 5%/0.9% Ns 1000 Ml) 1,000 mls @ 100 mls/hr IV .Q10H EMILIE Physical Exam - Constitutional Appears: Non-toxic, No Acute Distress, Cachectic - Head Exam Head Exam: ATRAUMATIC, NORMAL INSPECTION, NORMOCEPHALIC - Eye Exam Eye Exam: EOMI, Scleral icterus - ENT Exam ENT Exam: Mucous Membranes Moist. absent: Normal Exam (multiple sores over oral cavity, white plaques, removable with tongue depressor) - Neck Exam Neck exam: Positive for: Normal Inspection - Respiratory Exam Respiratory Exam: NORMAL BREATHING PATTERN. absent: Chest Wall Tenderness Additional comments: Right portacath in place - Cardiovascular Exam Cardiovascular Exam: REGULAR RHYTHM, +S1, +S2 - GI/Abdominal Exam GI & Abdominal Exam: Soft. absent: Distended, Guarding, Hernia, Tenderness Additional comments: well healed umbilical scar - Extremities Exam Extremities exam: Positive for: pedal edema (bilateral) - Neurological Exam Neurological exam: Alert, CN II-XII Intact, Oriented x3 - Psychiatric Exam Psychiatric exam: Normal Affect, Normal Mood - Skin Skin Exam: Diaphoretic, Intact, Warm Additional comments: grossly jaundiced Results - Vital Signs Recent Vital Signs: Last Vital Signs Temp 99.7 F H 12/24/17 16:41 Pulse 114 H 12/24/17 16:41 Resp 16 12/24/17 16:41 BP 113/55 L 12/24/17 16:41 Pulse Ox 99 12/24/17 16:41 - Labs Result Diagrams: 12/24/17 12:00 12/24/17 12:00 Labs: Laboratory Results - last 24 hr 12/24/17 12/24/1712/24/18 12:00 12:00 12:00 WBC 0.9 L* D RBC 2.58 L Hgb 8.1 L D Hct 23.8 L MCV 92.2 D MCH 31.4 MCHC 34.0 RDW 20.2 H Plt Count 31 L* Manual Plt Count Gran % 0.0 L Lymph % (Auto) 53.8 H Ramsey % (Auto) 46.2 H Eos % (Auto) 0.0 L Baso % (Auto) 0.0 Gran # 0.00 L Lymph # (Auto) 0.5 L Ramsey # (Auto) 0.4 Eos # (Auto) 0.0 Baso # (Auto) 0.00 Neutrophils % (Manual) 4 L Lymphocytes % (Manual) 53 H Monocytes % (Manual) 43 H Platelet Evaluation Low Hypochromasia 1+ PT INR APTT Fibrinogen Fibrin Degrad Products Sodium 134 Potassium 3.8 Chloride 104 Carbon Dioxide 21 Anion Gap 12 BUN 14 Creatinine 0.5 L Est GFR ( Amer) > 60 Est GFR (Non-Af Amer) > 60 POC Glucose (mg/dL) Random Glucose 94 Calcium 8.0 L Phosphorus 2.9 Magnesium 1.7 Total Bilirubin 7.8 H AST 43 H D ALT 50 Alkaline Phosphatase 187 H D Lactate Dehydrogenase Troponin I < 0.01 Total Protein 5.9 Albumin 2.3 L Globulin 3.6 Albumin/Globulin Ratio 0.6 L Hep Bs Antigen Negative Blood Type Antibody Screen JEAN MARIE, Poly Interpret Crossmatch BBK History Checked 12/24/17 12/24/17 12/24/17 13:25 13:25 13:25 WBC RBC Hgb Hct MCV MCH MCHC RDW Plt Count Manual Plt Count 30 L* Gran % Lymph % (Auto) Ramsey % (Auto) Eos % (Auto) Baso % (Auto) Gran # Lymph # (Auto) Ramsey # (Auto) Eos # (Auto) Baso # (Auto) Neutrophils % (Manual) Lymphocytes % (Manual) Monocytes % (Manual) Platelet Evaluation Hypochromasia PT 23.1 H INR 2.00 H APTT 31.9 Fibrinogen Fibrin Degrad Products Sodium Potassium Chloride Carbon Dioxide Anion Gap BUN Creatinine Est GFR ( Amer) Est GFR (Non-Af Amer) POC Glucose (mg/dL) Random Glucose Calcium Phosphorus Magnesium Total Bilirubin AST ALT Alkaline Phosphatase Lactate Dehydrogenase 293 L Troponin I Total Protein Albumin Globulin Albumin/Globulin Ratio Hep Bs Antigen Blood Type Antibody Screen JEAN MARIE, Poly Interpret Crossmatch BBK History Checked 12/24/17 12/24/17 12/24/17 13:30 13:30 14:02 WBC RBC Hgb Hct MCV MCH MCHC RDW Plt Count Manual Plt Count Gran % Lymph % (Auto) Ramsey % (Auto) Eos % (Auto) Baso % (Auto) Gran # Lymph # (Auto) Ramsey # (Auto) Eos # (Auto) Baso # (Auto) Neutrophils % (Manual) Lymphocytes % (Manual) Monocytes % (Manual) Platelet Evaluation Hypochromasia PT INR APTT Fibrinogen Fibrin Degrad Products Sodium Potassium Chloride Carbon Dioxide Anion Gap BUN Creatinine Est GFR ( Amer) Est GFR (Non-Af Amer) POC Glucose (mg/dL) 85 Random Glucose Calcium Phosphorus Magnesium Total Bilirubin AST ALT Alkaline Phosphatase Lactate Dehydrogenase Troponin I Total Protein Albumin Globulin Albumin/Globulin Ratio Hep Bs Antigen Blood Type O POSITIVE Antibody Screen Negative JEAN MARIE, Poly Interpret Negative Crossmatch See Detail BBK History Checked Patient has bt 12/24/17 12/24/17 15:51 16:05 WBC RBC Hgb Hct MCV MCH MCHC RDW Plt Count Manual Plt Count Gran % Lymph % (Auto) Ramsey % (Auto) Eos % (Auto) Baso % (Auto) Gran # Lymph # (Auto) Ramsey # (Auto) Eos # (Auto) Baso # (Auto) Neutrophils % (Manual) Lymphocytes % (Manual) Monocytes % (Manual) Platelet Evaluation Hypochromasia PT INR APTT Fibrinogen 358 Fibrin Degrad Products >10 <40 ug/ml Sodium Potassium Chloride Carbon Dioxide Anion Gap BUN Creatinine Est GFR ( Amer) Est GFR (Non-Af Amer) POC Glucose (mg/dL) Random Glucose Calcium Phosphorus Magnesium Total Bilirubin AST ALT Alkaline Phosphatase Lactate Dehydrogenase Troponin I Total Protein Albumin Globulin Albumin/Globulin Ratio Hep Bs Antigen Blood Type Antibody Screen JEAN MARIE, Poly Interpret Crossmatch BBK History Checked Assessment & Plan - Assessment and Plan (Free Text) Assessment: 72F PMH sig for cholangiocarcinoma s/p metal biliary stent placement, aborted Whipple procedure (11/05) on chemo therapy, ulcerative colitis, primary sclerosing cholangitis consulted for pancolitisw/PMH sig for cholangiocarcinoma s/p biliary stent placement & aborted Whipple consulted for colitis Plan: IVF Abx PO mouth wash for fungal infection Magic mouth wash for oral sore pain FU C diff FU stool cx No surgical intervention at this time due to prognosis/cinical condition Will follow peripherally Further mgmt as per primary & GI teams DW attending Samia, PGY-1 - Date & Time Date: 12/24/17 Time: 16:50
[2017-12-24 16:58] LABS: HEPATITIS C ANTIBODY NEGATIVE (NEGATIVE)
--- NOTE | 2017-12-24 17:06 | PCM.SEPTIC ---
Sepsis Progress Note - Reassessment Type Reassessment Type: Non-invasive reassessment - Non Invasive Reassessment Were the most recent vital sign reviewed: Yes Vital Sign (Latest): Temp Pulse Resp BP Pulse Ox 99.7 F H 114 H 16 113/55 L 99 12/24/17 16:41 12/24/17 16:41 12/24/17 16:41 12/24/17 16:41 12/24/17 16:41 Cardiovascular: Yes: Tachycardia Respiratory: Yes: Normal Breath Sounds Capillary Refill: Delayed Pulses: Decreased Radial, Decreased Dorsalis Pedis, Decreased Posterior Tibialis Skin: Pale
[2017-12-24] MEDS ORDERED: Aluminum Hydroxide/Magnesium 30 ML, DiphenhydrAMINE 75 MG, Lidocaine 2% Viscous 30 ML PO PRN (17:26)
[2017-12-24] MEDS: Meropenem 500 MG in Sodium Chloride 0.9% 50 ML IVPB SCH (19:14)
[2017-12-24 19:31] LABS: ALB/GLOB RATIO 0.6 (1.1-1.8); ALBUMIN 2.2 g/dL (3.0-4.8); ALT/SGPT 49 U/L (7-56); AST/SGOT 39 U/L (14-36); BLOOD UREA NITROGEN 14 mg/dL (7-21); CALCIUM 7.7 mg/dL (8.4-10.5); GFR AFRICAN-AMERICAN > 60; GFR NON-AFRICAN AMERICAN > 60
[2017-12-24] MEDS: metroNIDAZOLE IV 500 mg/100 ml 500 MG/100 ML BAG IVPB SCH (19:44)
[2017-12-24] MEDS: Vancomycin 1gm in NS 250ml 1 GM/250 ML BAG IVPB SCH (22:29)
[2017-12-24] MEDS: Nystatin 100,000 Units/ml Oral Susp 5 ml UD PO SCH (22:30)
[2017-12-25] MEDS: Dextrose 5%/0.9% NS 1,000 ML IV SCH ×2 (01:36→22:31)
--- NOTE | 2017-12-25 03:12 | HP ---
HISTORY OF PRESENT ILLNESS: The patient is a 72-year-old female with a history of metastatic cholangiocarcinoma status post biliary stent placement by Dr. Daily at [facility] on 11/05/2017. Currently receiving chemotherapy by Dr. Staton. Presents to the emergency department today with progressive lethargy, weakness and jaundice. The patient is noted to be pancytopenic with a coagulopathy and is admitted to the intensive care unit for further evaluation and management. The patient also complains of nausea, diarrhea, and stomatitis. There is no melena, no bright red blood per rectum. No fevers, chills or headache. PAST MEDICAL HISTORY: Includes history of colitis, asthma, fibromyalgia. There is no history of diabetes, hypertension or heart disease. PAST SURGICAL HISTORY: Significant for multiple sinus surgeries or chronic sinusitis. CURRENT MEDICATIONS: The patient is on no current medications other than chemotherapy. ALLERGIES: SHE HAS ALLERGIES TO ASPIRIN AND IBUPROFEN. SOCIAL HISTORY: The patient denies any history of alcohol, tobacco or drug use. FAMILY HISTORY: Noncontributory. REVIEW OF SYSTEMS: As above. PHYSICAL EXAMINATION: GENERAL: The patient is a cachectic female, in no acute distress. VITAL SIGNS: Blood pressure 113/55, pulse 114, temperature 99.7, T-max 100.9, respiratory rate 16. HEENT: Head is normocephalic, atraumatic. There is bilateral temporal wasting and scleral icterus. NECK: Supple. No thyromegaly. No carotid bruit. LUNGS: Show few scattered crepitations. HEART: Regular rate and rhythm. ABDOMEN: Soft with mild epigastric tenderness to palpation with no guarding or rebound. Bowel sounds are normoactive. EXTREMITIES: Show no cyanosis or clubbing. There is bilateral 1 to 2+ anasarca. There is bilateral muscle wasting and atrophy. NEUROLOGIC: The patient is awake and oriented without focal sensory or motor deficits. SKIN: Jaundiced. LABORATORY DATA: WBC 0.9, hemoglobin 8.1, hematocrit 23.8, platelets of 31. Prothrombin time is 23.1. Fibrinogen is 358. Chemistry; sodium 134, potassium 3.8, chloride 104, CO2 of 21, BUN 14, creatinine 0.5, calcium 8, bilirubin 7.8, alkaline phosphatase 187, AST 43, LDH 293. Troponin is less than 0.01. Albumin is 2.3. IMAGING STUDIES: Chest x-ray shows no active disease. CT scan of the abdomen and pelvis shows possible colitis with intrahepatic biliary dilatation, stent is present and history of cholecystectomy in the past. IMPRESSION: 1. Pancytopenia, status post chemotherapy, rule out sepsis, rule out disseminated intravascular coagulation. 2. Metastatic cholangiocarcinoma, status post biliary stent placement. PLAN: The patient will be admitted to the intensive care unit. We will obtain Infectious Disease consultation with Dr. Cheng for intravenous antibiotics. Routine cultures. We will obtain Hematology/Oncology consultation by Dr. Staton. Prognosis is very poor. Family is aware and will advise regarding advance directives. DARIEN Light MD
[2017-12-25] MEDS: Meropenem 500 MG in Sodium Chloride 0.9% 50 ML IVPB SCH (03:18)
[2017-12-25] MEDS: Vancomycin 1gm in NS 250ml 1 GM/250 ML BAG IVPB SCH ×2 (04:04→16:15)
[2017-12-25 06:37] VITALS: BMI 24.9
[2017-12-25] MEDS: metroNIDAZOLE IV 500 mg/100 ml 500 MG/100 ML BAG IVPB SCH ×4 (07:01→22:31)
[2017-12-25 07:27] LABS: BASO # 0.01 K/mm3 (0.0-2.0); BASO % 0.9 % (0.0-3.0); EOS % 0.9 % (1.5-5.0); GRAN % 9.3 % (50.0-68.0); LYMPH # 0.3 (1.2-3.4); LYMPH % 30.6 % (22.0-35.0); MEAN PLATELET VOLUME 9.7 fl (7.0-11.0); MONO # 0.6 (0.1-0.6); MONO % 58.3 % (1.0-6.0)
[2017-12-25 08:01] LABS: PLATELET COUNT 38 10^3/uL (120.0-450.0); WHITE BLOOD COUNT 1.1 10^3/ul (4.5-11.0)
[2017-12-25] MEDS ORDERED: Sodium Chloride 0.9% 1,000 ML IV STA (08:02)
--- NOTE | 2017-12-25 08:08 | CON ---
DATE: 12/24/2017 HISTORY OF PRESENT ILLNESS: This is a 72-year-old lady with a history of ulcerative colitis, sclerosing cholangitis, cholangiocarcinoma, status post cholecystectomy, who presented to [facility] 1 week after last cycle of chemotherapy with complaint of 7-day duration of diarrhea. It was not melena. The patient also denies nausea or vomiting. Here in [facility], CTAP showed extensive colitis A liter of normal saline bolus as well as septic workup and empiric antibiotics were started. VBG with lactic acid was ordered. ICU consult was requested for further management and monitoring. She was also found to have severe neutropenia. PAST MEDICAL HISTORY: Ulcerative colitis, sclerosing cholangitis, and cholangiocarcinoma. The patient has COPD. PAST SURGICAL HISTORY: Status post cholecystectomy. FAMILY HISTORY: Noncontributory. ALLERGIES: ASPIRIN AND IBUPROFEN. SOCIAL HISTORY: No alcohol or illicit drug abuse. No tobacco smoking. REVIEW OF SYSTEM: A review of 12-organ system other than mentioned in history of present illness is negative. MEDICATION AT HOME: Advair, Flonase, vitamin D and calcium, albuterol p.r.n. PHYSICAL EXAMINATION: VITAL SIGNS: Temperature 99.7 (T-max however is 102.6), heart rate 114, blood pressure 115/55, respiratory rate 16, oxygen saturation 99% on room air. HEENT: Head and neck atraumatic. LUNGS: Clear auscultation bilaterally. HEART: Regular rate and rhythm. S1 and S2 normal. ABDOMEN: Soft. Mildly tender diffusely. MUSCULOSKELETAL: Trace bilateral pedal and ankle edema. NEUROLOGICAL: The patient moves all extremities spontaneously. SKIN: Moist. PSYCHIATRIC: The patient is alert, awake, in mild respiratory distress. LABORATORY DATA: Labs, sodium 134, potassium 3.8, chloride 104, carbon dioxide 21, BUN 14, creatinine 0.5, glucose 85, magnesium 1.7, AST 43, ALT 50, total bilirubin 7.8, LDH 293. Troponin less than 0.01. WBC 0.9, platelet count 30. CAT scan of the abdomen and pelvis revealed interval findings suspicious for at least segmental colitis affecting the proximal and mid large bowel with a left hemicolon, borderline affected, pancolitis not excluded completely, mesenteric reaction is seen local to the colon with mild abdominal and pelvic ascites present. The lack of oral and intravenous contrast limits evaluation. No definite free air or abscess appreciated grossly. Gross intrahepatic biliary dilatation with lengthy wall stand radiating at either the main hepatic duct or the main right lobe hepatic duct, and extending to duodenum. The lack of intravenous contrast limits evaluation. (This finding was discussed with Dr. Altman, who suggested that that may be related to chronic sclerosing cholangitis). EKG, sinus tachycardia. ASSESSMENT AND PLAN: This is a 72-year-old lady with a history of sclerosing cholangitis, ulcerative colitis, and cholangiocarcinoma status post cholecystectomy, who presented with neutropenic fever, very low absolute neutrophil count, and typhlitis one week post last cycle of chemotherapy. The patient likely has severe sepsis. Fluid resuscitation is ongoing. Septic workup started. VBG with lactic acid ordered. Procalcitonin is ordered. Blood and urine culture were sent. ID consult requested. Meanwhile, the patient received dose of meropenem and vancomycin. Flagyl was added. Stool for Clostridium difficile was added as well. We will trend lactic acid level. At present time, we will have low threshold for intubation. The patient will be going to ICU for further management and monitoring. We will continue with GI prophylaxis. We will maintain platelet count above 10 in the absence of overt bleeding. We will maintain hemoglobin above 8. The patient received one dose of Granix to boost WBC count. We will continue target euvolemia, euglycemia, normothermia and oxygen saturation more than 90%. ccm time 40 min Barron Ojeda MD SHAREE
[2017-12-25 08:24] LABS: VENOUS BLOOD GAS BASE EXCESS -3.6 mmol/L (0.0-2.0); VENOUS BLOOD GAS PO2 137 mm/Hg (30-55); VENOUS BLOOD PH 7.39 (7.32-7.43)
[2017-12-25 08:35] LABS: ALB/GLOB RATIO 0.7 (1.1-1.8); ALBUMIN 2.5 g/dL (3.0-4.8); ALT/SGPT 40 U/L (7-56); AST/SGOT 39 U/L (14-36); BLOOD UREA NITROGEN 14 mg/dL (7-21); CALCIUM 7.9 mg/dL (8.4-10.5); GFR AFRICAN-AMERICAN > 60; GFR NON-AFRICAN AMERICAN > 60
--- NOTE | 2017-12-25 09:09 | CP.PCM.CON ---
History of Present Illness - History of Present Illness History of Present Illness: Palliative consult requested by family copied to Dr. Jeremias Nguyen Reason: Goals of care 72 year old female with history of cholangiocarcinoma,last chemotherapy one week ago. She presented on with diarrhea of seven day duration. She denied melena, nausea, vomitingchest pain, shortness of breath, hemoptysis or syncope. She was found to be pancytopenic. CT of abdomen/pelvis showed segmental colitis affecting the proximal and mid large bowel and left left hemicolon borderline, no abscess or free air, gross intrahepatic billiary dilatation with lengthy Wallstent radiating at either the main hepatic duct or the main right lobe hepatic duct and extending into the duodenum, prior cholecystectomy.Chest x ray no active disease. Labs WBC 1.1, Hgb 8.0, Plt 38, NA 135, K 3.7, BUN 14, Creat. 0.5, Neel 7.7, Total Bili 7.9, AST 39, Alk Phos 170, LDH 293, Albumin 2.2, hepaits screening negative, venous lactate Vital Signs: P 95, BP 113/50, R 16, O2 sat 98% PMHx: ulcerative colitis, sclerosing cholangitis, metastatic cholangiocarcinoma , COPD, giant cell arteritis, migraines,rheumatoid arthritis, osteoarthritis, fibromyalgia, asthma. Social History: Former smoker, no alcohol or drug use. Lives independently. Family History: Non contributory. Advance Care Planning: The patient does not have an Advanced Directive. He daughter Caridad Perez is POA. Review of Systems: As per HPI, 12 point review negative Past Patient History - Infectious Disease Hx of Infectious Diseases: None - Tetanus Immunizations Tetanus Immunization: Unknown - Past Social History Smoking Status: Never Smoked - CARDIAC Hx Pacemaker: No - PULMONARY Hx Respiratory Disorders: Yes Hx Asthma: Yes Hx Chronic Obstructive Pulmonary Disease (COPD): Yes - NEUROLOGICAL Hx Neurological Disorder: Yes Hx Migraine: Yes - HEENT Hx HEENT Problems: Yes Hx Deafness: Yes (left) - RENAL Hx Chronic Kidney Disease: No - ENDOCRINE/METABOLIC Other/Comment: Stage 4 biliary CA - HEMATOLOGICAL/ONCOLOGICAL Hx Cancer: Yes (STAGE 4 BILIARY CA) Hx Hepatitis A: Yes - INTEGUMENTARY Hx Dermatological Problems: No - MUSCULOSKELETAL/RHEUMATOLOGICAL Hx Musculoskeletal Disorders: Yes - GASTROINTESTINAL Hx Gastrointestinal Disorders: Yes Other/Comment: BILIARY CA-STAGE 4. ULCERATIVE COLOITIS - GENITOURINARY/GYNECOLOGICAL Hx Genitourinary Disorders: Yes Hx Hematuria: Yes - PSYCHIATRIC Hx Psychophysiologic Disorder: Yes - SURGICAL HISTORY Hx Surgeries: Yes (SINUS SURGERIES X'S 4) Hx Cardiac Catheterization: Yes (11/05) Other/Comment: sinus sx 4x - ANESTHESIA Hx Anesthesia: Yes Hx Anesthesia Reactions: No Hx Malignant Hyperthermia: No Meds Allergies/Adverse Reactions: Allergies Allergy/AdvReac Type Severity Reaction Status Date / Time aspirin Allergy ANAPHYLAXIS Verified 11/11/17 10:13 ibuprofen Allergy ANAPHYLAXIS Verified 11/11/17 10:13 - Medications Medications: Current Medications Al Hydrox/Mg Hydrox/Simethicone 30 ml/Diphenhydramine HCl 75 mg/Lidocaine 30 ml 0 ml PO Q2H PRN PRN Reason: Mouth/Throat Pain Last Admin: 12/25/17 04:04 Dose: 30 ml Vancomycin HCl (Vancomycin 1gm) 1 gm in 250 mls @ 167 mls/hr IVPB Q12H [facility]ILIE PRN Reason: Protocol Last Admin: 12/25/17 04:04 Dose: 167 mls/hr Metronidazole (Flagyl) 500 mg in 100 mls @ 100 mls/hr IVPB Q8 [facility]ILIE PRN Reason: Protocol Last Admin: 12/25/17 07:01 Dose: 100 mls/hr Dextrose/Sodium Chloride (Dextrose 5%/0.9% Ns 1000 Ml) 1,000 mls @ 100 mls/hr IV .Q10H [facility]ILIE Last Admin: 12/25/17 01:36 Dose: 100 mls/hr Meropenem (Merrem Iv 1 Gm Premix) 50 mls @ 100 mls/hr IVPB Q8 EMILIE PRN Reason: Protocol Stop: 01/01/18 06:31 Sodium Chloride (Sodium Chloride 0.9%) 1,000 mls @ 999 mls/hr IV .Q1H1M STA Stop: 12/25/17 09:02 Nystatin (Nystatin Oral Susp) 5 ml PO QID EMILIE Last Admin: 12/24/17 22:30 Dose: 5 ml Pantoprazole Sodium (Protonix Inj) 40 mg IVP DAILY EMILIE Physical Exam - Constitutional Appears: Chronically Ill - Head Exam Head Exam: NORMOCEPHALIC - Eye Exam Eye Exam: PERRL, Scleral icterus - ENT Exam ENT Exam: Mucous Membranes Moist, Normal Oropharynx - Neck Exam Neck exam: Positive for: Normal Inspection - Respiratory Exam Respiratory Exam: Decreased Breath Sounds, NORMAL BREATHING PATTERN - Cardiovascular Exam Cardiovascular Exam: REGULAR RHYTHM, +S1, +S2 - GI/Abdominal Exam GI & Abdominal Exam: Distended, Normal Bowel Sounds - Extremities Exam Extremities exam: Positive for: pedal edema - Back Exam Additional comments: vertebral tenderness in lumbar area - Neurological Exam Neurological exam: Alert, Oriented x3 - Skin Skin Exam: Dry, Pallor - Additional Findings Additional findings: Palliative performance scale rating 50% Results - Vital Signs Recent Vital Signs: Last Vital Signs Temp 97.7 F 12/25/17 06:00 Pulse 95 H 12/25/17 06:40 Resp 16 12/25/17 06:40 BP 113/51 L 12/25/17 06:30 Pulse Ox 98 12/25/17 06:40 - Labs Result Diagrams: 12/26/17 05:40 12/26/17 08:00 Labs: Laboratory Results - last 24 hr 12/24/17 12/24/17 12/25/17 19:18 21:48 02:40 WBC RBC Hgb Hct MCV MCH MCHC RDW Plt Count MPV Gran % Lymph % (Auto) Perkins % (Auto) Eos % (Auto) Baso % (Auto) Gran # Lymph # (Auto) Perkins # (Auto) Eos # (Auto) Baso # (Auto) pO2 VBG pH VBG pCO2 VBG HCO3 VBG Total CO2 VBG O2 Sat (Calc) VBG Base Excess VBG Potassium Glucose Lactate FiO2 Sodium 135 Potassium 3.7 Chloride 105 Carbon Dioxide 20 L Anion Gap 14 BUN 14 Creatinine 0.5 L Est GFR ( Amer) > 60 Est GFR (Non-Af Amer) > 60 POC Glucose (mg/dL) 81 68 Random Glucose 94 Calcium 7.7 L Phosphorus Magnesium 1.7 Total Bilirubin 7.9 H AST 39 H ALT 49 Alkaline Phosphatase 170 H Total Protein 5.8 Albumin 2.2 L Globulin 3.5 Albumin/Globulin Ratio 0.6 L Venous Blood Potassium 12/25/17 12/25/17 12/25/17 06:04 07:00 07:00 WBC 1.1 L* D RBC 2.50 L Hgb 8.0 L Hct 23.5 L MCV 94.0 MCH 32.0 MCHC 34.0 RDW 19.0 H Plt Count 38 L* MPV 9.7 Gran % 9.3 L Lymph % (Auto) 30.6 Perkins % (Auto) 58.3 H Eos % (Auto) 0.9 L Baso % (Auto) 0.9 Gran # 0.10 L Lymph # (Auto) 0.3 L Perkins # (Auto) 0.6 Eos # (Auto) 0.0 Baso # (Auto) 0.01 pO2 VBG pH VBG pCO2 VBG HCO3 VBG Total CO2 VBG O2 Sat (Calc) VBG Base Excess VBG Potassium Glucose Lactate FiO2 Sodium Potassium Chloride Carbon Dioxide Anion Gap BUN Creatinine Est GFR ( Amer) Est GFR (Non-Af Amer) POC Glucose (mg/dL) 73 Random Glucose Calcium Phosphorus 3.0 Magnesium Total Bilirubin AST ALT Alkaline Phosphatase Total Protein Albumin Globulin Albumin/Globulin Ratio Venous Blood Potassium 12/25/17 12/25/17 08:15 08:15 WBC RBC Hgb Hct MCV MCH MCHC RDW Plt Count MPV Gran % Lymph % (Auto) Perkins % (Auto) Eos % (Auto) Baso % (Auto) Gran # Lymph # (Auto) Perkins # (Auto) Eos # (Auto) Baso # (Auto) pO2 137 H VBG pH 7.39 VBG pCO2 34.0 L VBG HCO3 20.6 L VBG Total CO2 21.6 L VBG O2 Sat (Calc) 100.5 H VBG Base Excess -3.6 L VBG Potassium 3.3 L Glucose 73 Lactate 2.3 H FiO2 21.0 Sodium 137 136.0 Potassium 3.5 L Chloride 108 H 109.0 H Carbon Dioxide 19 L Anion Gap 14 BUN 14 Creatinine 0.5 L Est GFR ( Amer) > 60 Est GFR (Non-Af Amer) > 60 POC Glucose (mg/dL) Random Glucose 73 Calcium 7.9 L Phosphorus Magnesium Total Bilirubin 7.5 H AST 39 H ALT 40 Alkaline Phosphatase 137 H Total Protein 5.9 Albumin 2.5 L Globulin 3.4 Albumin/Globulin Ratio 0.7 L Venous Blood Potassium 3.3 L Assessment & Plan - Assessment and Plan (Free Text) Assessment: 72 year old female with history of metastatic cholangiocarcinoma, s/p bilary stent, s/p chemotherapy one week ago who is admitted with sepsis ulcerate colitis, pancytopenia and diarrhea. The patient is weak, lethargic Complains of low back pain. States she is still having diarrhea. POA/daughter, Caridad Van contacted via phone. Daughter unable to speak with me at this time. Daughter intends to call me later today for goals of care discussion. I spoke with POA via phone later in the day. She is aware of mother's medical status and poor prognosis. Daughter understands the necessity of advance care planning. Daughter intends to speak with her mother about resuscitation status. Daughter requests that I speak with mother as well regarding advance care planningl Daughter also aware that her mother can no longer live alone. Daughter interested in senior care placement with hospice care. Advised daughter that I would have high school social science teacher contact her regarding options for placement. Time spent in goals of care and advance care planning discussion with daughter, 30 minutes Plan: Goals of care and advance care planning. Sepsis: Cultures/ procalcitionin pending. Merrem, Flagyl started Pancytopenia: Monitor CBC daily,Granix, transfuse as needed. Neutropenic precautions
--- NOTE | 2017-12-25 10:05 | PN ---
DATE: 12/25/2017 SUBJECTIVE: The patient is seen and examined at bedside. She is comfortable. She denies any pain and her night was uneventful. However, she had a lot of diarrhea still. PHYSICAL EXAMINATION: VITAL SIGNS: Blood pressure 98/45 with mean arterial pressure 67, heart rate 100, oxygen saturation 97%, respiratory rate 19. ENT: Head and neck atraumatic. LUNGS: Clear to auscultation bilaterally. HEART: Regular rate and rhythm. S1, S2 normal. ABDOMEN: Soft, nontender, nondistended. MUSCULOSKELETAL: No C/C/E. NEUROLOGICAL: The patient moves all extremities spontaneously. SKIN: Moist. PSYCHIATRIC: The patient is alert, awake and oriented x3. LABORATORY DATA: WBC 1.1; hemoglobin 8 and relatively stable; platelet count 38, up from 31. MEDICATIONS: D5 normal saline at 100 mL per hour, Flagyl, meropenem, Protonix, Granix, vancomycin. ASSESSMENT AND PLAN: This 72-year-old lady with history of ulcerative colitis, sclerosing cholangitis, and cholangiocarcinoma with metastases to the liver who presented to [facility] with neutropenic fever and diarrhea approximately 1 week after receiving last cycle of chemotherapy. The patient was given a liter of normal saline as a bolus and D5 normal saline continued as maintenance fluid at 100 mL/hour. Stool was ordered, but was unable to get for C diff assay. Nevertheless, the patient was started on Flagyl and broad-spectrum antibiotics. Septic workup initiated. Blood and urine culture were sent. Procalcitonin is pending. The patient continued to have diarrhea. The patient was started on Granix with white cell count somewhat improved compared with yesterday. The patient is afebrile now; however, overnight T-max was 101.7. We will continue to target euvolemia, euglycemia, normothermia and oxygen saturation more than 90%. We will continue with DVT and GI prophylaxis. Addendum: despite fluctuating BPs, diarrhea remarkably slowed down as per patient, only once today. received 2L bolus, subjectively is doing better ccm time 40 min Barron Ojeda MD [facility]
[2017-12-25] MEDS: Nystatin 100,000 Units/ml Oral Susp 5 ml UD PO SCH ×5 (11:00→22:28)
--- NOTE | 2017-12-25 11:15 | CP.PCM.PN ---
Subjective - Date & Time of Evaluation Date of Evaluation: 12/25/17 Time of Evaluation: 08:00 - Subjective Subjective: GI Progress Note for Dom Richey PGY2 Patient seen and examined at bedside. There were no acute overnight events as per nursing staff. Patient has been having greenish loose stool. She has mild RUQ pain. She denies chest pain, shortness of breath, nausea/vomiting/diarrhea, fever or chills. Objective - Vital Signs/Intake and Output Vital Signs (last 24 hours): Temp Pulse Resp BP Pulse Ox 97.7 F 95 H 16 113/51 L 98 12/25/17 06:00 12/25/17 06:40 12/25/17 06:40 12/25/17 06:30 12/25/17 06:40 Intake and Output: 12/25/17 12/25/17 06:59 18:59 Intake Total 3520 Balance 3520 - Medications Medications: Current Medications Al Hydrox/Mg Hydrox/Simethicone 30 ml/Diphenhydramine HCl 75 mg/Lidocaine 30 ml 0 ml PO Q2H PRN PRN Reason: Mouth/Throat Pain Last Admin: 12/25/17 04:04 Dose: 30 ml Vancomycin HCl (Vancomycin 1gm) 1 gm in 250 mls @ 167 mls/hr IVPB Q12H EMILIE PRN Reason: Protocol Last Admin: 12/25/17 04:04 Dose: 167 mls/hr Metronidazole (Flagyl) 500 mg in 100 mls @ 100 mls/hr IVPB Q8 EMILIE PRN Reason: Protocol Last Admin: 12/25/17 07:01 Dose: 100 mls/hr Dextrose/Sodium Chloride (Dextrose 5%/0.9% Ns 1000 Ml) 1,000 mls @ 100 mls/hr IV .Q10H EMILIE Last Admin: 12/25/17 01:36 Dose: 100 mls/hr Meropenem (Merrem Iv 1 Gm Premix) 50 mls @ 100 mls/hr IVPB Q8 EMILIE PRN Reason: Protocol Stop: 01/01/18 06:31 Nystatin (Nystatin Oral Susp) 5 ml PO QID EMILIE Last Admin: 12/24/17 22:30 Dose: 5 ml Pantoprazole Sodium (Protonix Inj) 40 mg IVP DAILY EMILIE - Labs Labs: 12/25/17 07:00 12/25/17 08:15 PT 23.1 SECONDS (9.4-12.5) H 12/24/17 13:25 INR 2.00 (0.93-1.08) H 12/24/17 13:25 APTT 31.9 Seconds (25.1-36.5) 12/24/17 13:25 - Constitutional Appears: No Acute Distress - Head Exam Head Exam: ATRAUMATIC, NORMAL INSPECTION, NORMOCEPHALIC - Eye Exam Eye Exam: Scleral icterus - Respiratory Exam Respiratory Exam: Clear to Ausculation Bilateral, NORMAL BREATHING PATTERN. absent: Rales, Rhonchi - Cardiovascular Exam Cardiovascular Exam: REGULAR RHYTHM, +S1, +S2. absent: Gallop, Rubs, Murmur - GI/Abdominal Exam GI & Abdominal Exam: Soft, Tenderness (mild RUQ/epigastric ), Normal Bowel Sounds. absent: Guarding, Rigid, Rebound - Neurological Exam Neurological Exam: Alert, Awake, CN II-XII Intact - Skin Skin Exam: Dry, Warm Assessment and Plan - Assessment and Plan (Free Text) Assessment: This is a 72yo female with past medical history COPD, giant cell arteritis, Ulcerative colitis, cholangiocarcinoma s/p cholecystectomy and chemotherapy 2 weeks who is admitted 1. Sepsis with neutropenic fever secondary to pancolitis 2. Pancytopenia 3. cholangiocarcinoma on chemotherapy 4. Primary sclerosing cholangitis 5. Cirrhosis s/p ERCP with biliary stent 6. Ulcerative colitis 7. COPD 8. Giant cell arteritis Plan: Continue IV antibiotics. Neutropenic precautions. ID on consult. Will continue to monitor LFTs and CBC. Oncology is on consult. Palliative care is on consult. Prognosis is guarded. Diet as tolerated. Case seen, reviewed and discussed with Dr. Altman. Dom Zazueta PGY2
--- NOTE | 2017-12-25 11:54 | CP.PCM.PN ---
Subjective - Date & Time of Evaluation Date of Evaluation: 12/25/17 Time of Evaluation: 07:50 - Subjective Subjective: Patient seen and examined this AM. patient complains of persistent abdominal "soreness" but denies nausea and vomiting. Patient is having blood administered for low hemoglobin Objective - Vital Signs/Intake and Output Vital Signs (last 24 hours): Temp Pulse Resp BP Pulse Ox 97.7 F 95 H 16 113/51 L 98 12/25/17 06:00 12/25/17 06:40 12/25/17 06:40 12/25/17 06:30 12/25/17 06:40 Intake and Output: 12/25/17 12/25/17 06:59 18:59 Intake Total 3520 Balance 3520 - Medications Medications: Current Medications Al Hydrox/Mg Hydrox/Simethicone 30 ml/Diphenhydramine HCl 75 mg/Lidocaine 30 ml 0 ml PO Q2H PRN PRN Reason: Mouth/Throat Pain Last Admin: 12/25/17 04:04 Dose: 30 ml Vancomycin HCl (Vancomycin 1gm) 1 gm in 250 mls @ 167 mls/hr IVPB Q12H EMILIE PRN Reason: Protocol Last Admin: 12/25/17 04:04 Dose: 167 mls/hr Metronidazole (Flagyl) 500 mg in 100 mls @ 100 mls/hr IVPB Q8 EMILIE PRN Reason: Protocol Last Admin: 12/25/17 07:01 Dose: 100 mls/hr Dextrose/Sodium Chloride (Dextrose 5%/0.9% Ns 1000 Ml) 1,000 mls @ 100 mls/hr IV .Q10H [facility] Last Admin: 12/25/17 01:36 Dose: 100 mls/hr Meropenem (Merrem Iv 1 Gm Premix) 50 mls @ 100 mls/hr IVPB Q8 EMILIE PRN Reason: Protocol Stop: 01/01/18 06:31 Nystatin (Nystatin Oral Susp) 5 ml PO QID [facility] Last Admin: 12/24/17 22:30 Dose: 5 ml Pantoprazole Sodium (Protonix Inj) 40 mg IVP DAILY EMILIE - Labs Labs: 12/25/17 07:00 12/25/17 08:15 PT 23.1 SECONDS (9.4-12.5) H 12/24/17 13:25 INR 2.00 (0.93-1.08) H 12/24/17 13:25 APTT 31.9 Seconds (25.1-36.5) 12/24/17 13:25 - Constitutional Appears: No Acute Distress, Cachectic, Chronically Ill - Head Exam Head Exam: ATRAUMATIC, NORMOCEPHALIC - Eye Exam Eye Exam: EOMI, Scleral icterus - ENT Exam ENT Exam: Mucous Membranes Moist, Normal Oropharynx - Respiratory Exam Respiratory Exam: NORMAL BREATHING PATTERN. absent: Accessory Muscle Use, Respiratory Distress - Cardiovascular Exam Cardiovascular Exam: RRR - GI/Abdominal Exam GI & Abdominal Exam: Distended, Tenderness (mild diffuse tenderness). absent: Rigid, Soft, Rebound - Extremities Exam Extremities Exam: absent: Calf Tenderness, Tenderness - Neurological Exam Neurological Exam: Alert, Awake, Oriented x3 - Psychiatric Exam Psychiatric exam: Normal Affect, Normal Mood - Skin Skin Exam: Dry, Warm Additional comments: jaundiced Assessment and Plan - Assessment and Plan (Free Text) Assessment: 72F with cholangiocarcinoma and abdominal pain Plan: No surgical intervention indicated at this time--patient has advanced malignant disease which is likely contributing to her abdominal pain. Patient is currently hemodynamically stable and a very poor surgical candidate, and symptoms are improving Continue management per the ICU and ID PRN pain and nausea medication Please contact surgical team for any further questions or concerns Discussed with Dr. Rolf Villatoro, PGY2
[2017-12-25 12:05] LABS: VENOUS BLOOD GAS BASE EXCESS -3.4 mmol/L (0.0-2.0); VENOUS BLOOD GAS PO2 68 mm/Hg (30-55); VENOUS BLOOD PH 7.41 (7.32-7.43)
--- NOTE | 2017-12-25 12:48 | CP.PCM.CON ---
History of Present Illness - History of Present Illness History of Present Illness: 72 year old female with PMH of primary sclerosing cholangitis with liver cirrhosis S/P ERCP and biliary stent placement, cholangiocarcinoma S/P cholecystectomy and on chemotherapy last session 2 weeks ago, Ulcerative colitis , history of MSSA sinusitis, COPD, allergic rhinitis, giant cell arteritis [place] [facility] [place] of generalized weakness, nausea and watery diarrhea for the past week. She has subjective fevers intermittently, no headache or dizziness, no sore throat, no rhinorrhea, no cough or SOB, no chest pain, has abdominal discomfort, no dysuria, no pain at the port-a-cath site. In the ED, CT scan of the abdomen and pelvis showed pancolitis. She is also noted to be neutropenic and also had fever noted in the ED. Infectious Diseases consult is requested to further evaluate and manage. Review of Systems - Review of Systems All systems: reviewed and no additional remarkable complaints except (as per HPI ) Past Patient History - Infectious Disease Hx of Infectious Diseases: None - Tetanus Immunizations Tetanus Immunization: Unknown - Past Social History Smoking Status: Never Smoked - CARDIAC Hx Pacemaker: No - PULMONARY Hx Respiratory Disorders: Yes Hx Asthma: Yes Hx Chronic Obstructive Pulmonary Disease (COPD): Yes - NEUROLOGICAL Hx Neurological Disorder: Yes Hx Migraine: Yes - HEENT Hx HEENT Problems: Yes Hx Deafness: Yes (left) - RENAL Hx Chronic Kidney Disease: No - ENDOCRINE/METABOLIC Other/Comment: Stage 4 biliary CA - HEMATOLOGICAL/ONCOLOGICAL Hx Cancer: Yes (STAGE 4 BILIARY CA) Hx Hepatitis A: Yes - INTEGUMENTARY Hx Dermatological Problems: No - MUSCULOSKELETAL/RHEUMATOLOGICAL Hx Musculoskeletal Disorders: Yes - GASTROINTESTINAL Hx Gastrointestinal Disorders: Yes Other/Comment: BILIARY CA-STAGE 4. ULCERATIVE COLOITIS - GENITOURINARY/GYNECOLOGICAL Hx Genitourinary Disorders: Yes Hx Hematuria: Yes - PSYCHIATRIC Hx Psychophysiologic Disorder: Yes - SURGICAL HISTORY Hx Surgeries: Yes (SINUS SURGERIES X'S 4) Hx Cardiac Catheterization: Yes (11/05) Other/Comment: sinus sx 4x - ANESTHESIA Hx Anesthesia: Yes Hx Anesthesia Reactions: No Hx Malignant Hyperthermia: No Meds Allergies/Adverse Reactions: Allergies Allergy/AdvReac Type Severity Reaction Status Date / Time aspirin Allergy ANAPHYLAXIS Verified 11/11/17 10:13 ibuprofen Allergy ANAPHYLAXIS Verified 11/11/17 10:13 - Medications Medications: Current Medications Al Hydrox/Mg Hydrox/Simethicone 30 ml/Diphenhydramine HCl 75 mg/Lidocaine 30 ml 0 ml PO Q2H PRN PRN Reason: Mouth/Throat Pain Last Admin: 12/25/17 04:04 Dose: 30 ml Vancomycin HCl (Vancomycin 1gm) 1 gm in 250 mls @ 167 mls/hr IVPB Q12H EMILIE PRN Reason: Protocol Last Admin: 12/25/17 04:04 Dose: 167 mls/hr Metronidazole (Flagyl) 500 mg in 100 mls @ 100 mls/hr IVPB Q8 EMILIE PRN Reason: Protocol Last Admin: 12/25/17 00:00 Dose: 100 mls/hr Dextrose/Sodium Chloride (Dextrose 5%/0.9% Ns 1000 Ml) 1,000 mls @ 100 mls/hr IV .Q10H [facility] Last Admin: 12/25/17 01:36 Dose: 100 mls/hr Meropenem (Merrem Iv 1 Gm Premix) 50 mls @ 100 mls/hr IVPB Q8 EMILIE PRN Reason: Protocol Stop: 01/01/18 06:31 Nystatin (Nystatin Oral Susp) 5 ml PO QID [facility] Last Admin: 12/24/17 22:30 Dose: 5 ml Physical Exam - Constitutional Appears: Cachectic, Chronically Ill - Head Exam Head Exam: NORMAL INSPECTION - Neck Exam Neck exam: Negative for: Meningismus - Respiratory Exam Respiratory Exam: Decreased Breath Sounds Additional comments: right anterior chest wall port-a-cath in place - Cardiovascular Exam Cardiovascular Exam: +S1, +S2 - GI/Abdominal Exam GI & Abdominal Exam: Soft. absent: Tenderness Results - Vital Signs Recent Vital Signs: Last Vital Signs Temp 98.2 F 12/25/17 02:40 Pulse 96 H 12/25/17 02:50 Resp 19 12/25/17 02:50 BP 99/37 L 12/25/17 02:30 Pulse Ox 99 12/25/17 02:50 - Labs Result Diagrams: 12/25/17 07:00 12/25/17 08:15 Labs: Laboratory Results - last 24 hr 12/24/17 12/24/17 12/25/17 19:18 21:48 02:40 Sodium 135 Potassium 3.7 Chloride 105 Carbon Dioxide 20 L Anion Gap 14 BUN 14 Creatinine 0.5 L Est GFR ( Amer) > 60 Est GFR (Non-Af Amer) > 60 POC Glucose (mg/dL) 81 68 Random Glucose 94 Calcium 7.7 L Magnesium 1.7 Total Bilirubin 7.9 H AST 39 H ALT 49 Alkaline Phosphatase 170 H Total Protein 5.8 Albumin 2.2 L Globulin 3.5 Albumin/Globulin Ratio 0.6 L 12/25/17 06:04 Sodium Potassium Chloride Carbon Dioxide Anion Gap BUN Creatinine Est GFR ( Amer) Est GFR (Non-Af Amer) POC Glucose (mg/dL) 73 Random Glucose Calcium Magnesium Total Bilirubin AST ALT Alkaline Phosphatase Total Protein Albumin Globulin Albumin/Globulin Ratio Assessment & Plan - Assessment and Plan (Free Text) Plan: Assessment Severe Sepsis with febrile neutropenia, due to pancolitis, R/O bacteremia from port history of sepsis from biliary tree as the source in a patient with primary sclerosing cholangitis with liver cirrhosis S/P ERCP and biliary stent placement - S/P biopsy of the enlarged lymph nodes adjacent to the common bile duct cholangiocarcinoma on chemotherapy S/P cholecystectomy Ulcerative colitis history of MSSA sinusitis COPD allergic rhinitis giant cell arteritis Plan started patient on Vancomycin, Merrem pending blood, stool cx, stool for C. diff and start PO Vancomycin and IV Flagyl will monitor clinically overall prognosis is poor discussed with Dr. Altman
[2017-12-25] MEDS: Meropenem IV 1 gm in NS 50 ML IVPB SCH ×2 (13:18→22:27)
[2017-12-25] MEDS: Vancomycin 25 MG/ML PO SCH ×3 (14:07→22:30)
[2017-12-25] MEDS ORDERED: Potassium Phosphate 3 mmol/ml Inj IV ONE (16:19)
[2017-12-25] MEDS ORDERED: POTASSIUM PHOSPHATE IVPB ONE (16:30)
[2017-12-25] MEDS ORDERED: SODIUM CHLORIDE IVPB ONE (16:30)
--- NOTE | 2017-12-25 16:30 | CP.PCM.PN ---
Subjective - Date & Time of Evaluation Date of Evaluation: 12/25/17 Time of Evaluation: 15:40 - Subjective Subjective: feels somewhat better today, denies chest or abd pain, reports pain in mouth Objective - Vital Signs/Intake and Output Vital Signs (last 24 hours): Temp Pulse Resp BP Pulse Ox 97.7 F 91 H 23 100/55 L 98 12/25/17 06:00 12/25/17 13:00 12/25/17 13:00 12/25/17 13:00 12/25/17 13:00 Intake and Output: 12/25/17 12/25/17 06:59 18:59 Intake Total 3520 Balance 3520 - Medications Medications: Current Medications Al Hydrox/Mg Hydrox/Simethicone 30 ml/Diphenhydramine HCl 75 mg/Lidocaine 30 ml 0 ml PO Q2H PRN PRN Reason: Mouth/Throat Pain Last Admin: 12/25/17 04:04 Dose: 30 ml Vancomycin HCl (Vancomycin 1gm) 1 gm in 250 mls @ 167 mls/hr IVPB Q12H EMILIE PRN Reason: Protocol Last Admin: 12/25/17 04:04 Dose: 167 mls/hr Metronidazole (Flagyl) 500 mg in 100 mls @ 100 mls/hr IVPB Q8 EMILIE PRN Reason: Protocol Last Admin: 12/25/17 13:19 Dose: 100 mls/hr Dextrose/Sodium Chloride (Dextrose 5%/0.9% Ns 1000 Ml) 1,000 mls @ 100 mls/hr IV .Q10H [facility] Last Admin: 12/25/17 01:36 Dose: 100 mls/hr Meropenem (Merrem Iv 1 Gm Premix) 50 mls @ 100 mls/hr IVPB Q8 EMILIE PRN Reason: Protocol Stop: 01/01/18 06:31 Last Admin: 12/25/17 13:18 Dose: 100 mls/hr Potassium Phosphate 9.75 mmole (/ Sodium Chloride) 253.25 mls @ 42.5 mls/hr IVPB ONCE ONE Stop: 12/25/17 22:27 Nystatin (Nystatin Oral Susp) 5 ml PO QID [facility] Last Admin: 12/25/17 11:00 Dose: 5 ml Pantoprazole Sodium (Protonix Inj) 40 mg IVP DAILY [facility] Last Admin: 12/25/17 12:54 Dose: 40 mg Vancomycin HCl (Vancocin 25 Mg/Ml (Oral Use)) 125 mg PO QID EMILIE PRN Reason: Protocol Last Admin: 12/25/17 14:07 Dose: 125 mg - Labs Labs: 12/25/17 07:00 12/25/17 08:15 PT 23.1 SECONDS (9.4-12.5) H 12/24/17 13:25 INR 2.00 (0.93-1.08) H 12/24/17 13:25 APTT 31.9 Seconds (25.1-36.5) 12/24/17 13:25 - Respiratory Exam Respiratory Exam: Clear to Ausculation Bilateral, Wheezes - Cardiovascular Exam Cardiovascular Exam: REGULAR RHYTHM - GI/Abdominal Exam GI & Abdominal Exam: Soft, Normal Bowel Sounds - Extremities Exam Extremities Exam: Pedal Edema - Neurological Exam Neurological Exam: Alert, Awake Assessment and Plan (1) Cholangiocarcinoma Status: Acute (2) Neutropenic fever Status: Acute (3) Abdominal pain Status: Acute - Assessment and Plan (Free Text) Plan: continue IV Abx, monitor blood counts, on neutropenic precautions, prognosis remains very poor
[2017-12-25 16:38] LABS: ALB/GLOB RATIO 0.7 (1.1-1.8); ALBUMIN 2.2 g/dL (3.0-4.8); ALT/SGPT 34 U/L (7-56); AST/SGOT 30 U/L (14-36); BLOOD UREA NITROGEN 13 mg/dL (7-21); CALCIUM 7.6 mg/dL (8.4-10.5); GFR AFRICAN-AMERICAN > 60; GFR NON-AFRICAN AMERICAN > 60
--- NOTE | 2017-12-25 22:46 | CON ---
DATE: LOCATION: Seen in the ICU at the request of Dr. Nguyen. HISTORY OF PRESENT ILLNESS: Arianne Larios is a 72-year-old who had an attempted Whipple that was unsuccessful, had a stent placed in [facility] and presently is admitted for increasing abdominal pain. The vital signs at the moment unremarkable. She is afebrile, blood pressure in the 100s, pulse in the 90s, 132 pounds. White count is low at 1.1; platelets 38, manual 30. PT is 23, PTT is 31. Bilirubin is 7.5. SGOT is 39, alk phos slightly elevated at 137. CAT scan is reviewed with a stent in place in the liver with dilated hepatic radicals, possibly some tumor, ascites, and some pleural effusions but other than that, nothing remarkable. I examined the patient, had mild tenderness throughout without guarding or rebound. CAT scan is reviewed, showed colitis, which is probably related to the post-chemotherapy treatment about a week ago. Discussed with the resident and we agree. I examined the patient myself. The plan will be conservative management with IV antibiotics and fluids without surgical intervention. I will follow the patient peripherally, but my feeling is that the consult for palliative care and/or hospice is reasonable and I will follow peripherally. Art Bansal MD
--- NOTE | 2017-12-26 01:16 | CON ---
DATE: 12/24/2017 This is a re-dictation, could not locate the previous dictation. HISTORY OF PRESENT ILLNESS: This patient was seen in the Emergency Room earlier. Discussed with the ER attending and also the resident. This 72-year-old patient well known with metastatic cholangiocarcinoma, on chemotherapy, being followed by Dr. Staton, was brought to the Emergency Room for complaints of diarrhea, several episodes. The patient also complains of weakness. The patient had chemotherapy a week ago. The patient has a history of ulcerative colitis, history of anaphylactic reaction to aspirin. The patient was not on mesalamine. The last colonoscopy done in 2017 showed mild colitis. 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 The patient was found to have metastatic disease, being followed at the [place], presently on chemo. In the ER, the patient was found to be hypotensive, pancytopenic, and the CT scan was done in the ER, found to have thickening of the colon with pericolonic stranding both, right greater than the left side. The patient also had some ascites, intrahepatic duct dilation. The patient was found to have a metal biliary stent present. He was also noticed to have elevated liver enzymes. PAST MEDICAL HISTORY: Other past medical history significant as above, history of COPD. PAST SURGICAL HISTORY: Status post cholecystectomy, history of sinus surgeries done in the [place]. FAMILY HISTORY: Noncontributory. ALLERGIES: ALLERGIC TO ASPIRIN AND IBUPROFEN, ANAPHYLACTIC REACTION. SOCIAL HISTORY: Denies alcohol. REVIEW OF SYSTEMS: Positive as above. PHYSICAL EXAMINATION: GENERAL: The patient is lying on the bed, not in acute distress. VITAL SIGNS: Blood pressure 98/52, heart rate 112, respirations 18, O2 saturation is 99%. HEENT: Jaundiced. NECK: Supple. HEART: S1, S2 heard. LUNGS: Bilateral air entry present, reduced at he base. ABDOMEN: Softly distended. Bowel sounds present, diffuse tenderness present. EXTREMITIES: No cyanosis, no clubbing. Pedal edema present bilaterally. NEUROLOGICAL: Alert, oriented. LABORATORY DATA: WBC 0.9, hemoglobin 8.1, hematocrit 23.8, platelets 31. INR 2. Chemistry: Total bilirubin 7.5, AST 39, ALT 40, total alkaline phosphatase 137. BUN 14, creatinine 0.5. CT scan of the abdomen, findings reviewed as above. IMPRESSION: This is a 72-year-old patient with metastatic cholangiocarcinoma, on chemotherapy, admitted with diarrhea, hypotension, pancytopenia. The patient's CT shows diffuse colitis, right more than the left side and the patient does have elevated liver function tests, history of biliary stricture status post metallic stent placement. 1. Colitis, most likely secondary to the chemo induced, rule out an ischemic component because of the severe sepsis. 2. Elevated liver function tests, the patient's alkaline phosphatase is not significantly elevated compared to total bilirubin, We need to rule out chemo-induced and biliary obstruction also to be considered and sepsis could be the cause. We would recommend hematological followup. 3. Pancytopenia, severe neutropenia. Would recommend: 1. Cultures. 2. Continue the antibiotics as per ID. 3. Hematological/oncological followup. 4. Follow up of the LFT's relatively and stool for C. diff. The patient is n.p.o. We will continue to close follow up his care and suggest further management based upon the clinical course. Lj Altman MD
[2017-12-26] MEDS: Vancomycin 1gm in NS 250ml 1 GM/250 ML BAG IVPB SCH (03:21)
[2017-12-26] MEDS: metroNIDAZOLE IV 500 mg/100 ml 500 MG/100 ML BAG IVPB SCH ×3 (06:17→23:01)
[2017-12-26] MEDS: Meropenem IV 1 gm in NS 50 ML IVPB SCH ×4 (06:17→23:00)
[2017-12-26 06:48] LABS: BASO # 0.03 K/mm3 (0.0-2.0); BASO % 0.7 % (0.0-3.0); EOS % 0.2 % (1.5-5.0); GRAN # 1.68 (1.4-6.5); GRAN % 39.8 % (50.0-68.0); HEMOGLOBIN 8.7 g/dL (12.0-16.0); LYMPH # 0.9 (1.2-3.4); LYMPH % 21.1 % (22.0-35.0); MEAN CELL VOLUME 92.4 fl (80.0-105.0); MEAN CORPUSCULAR HEMOGLOBIN 31.3 pg (25.0-35.0); MEAN CORPUSCULAR HGB CONC 33.9 g/dl (31.0-37.0); MONO # 1.6 (0.1-0.6); MONO % 38.2 % (1.0-6.0); PLATELET COUNT 73 10^3/uL (120.0-450.0); RBC 2.78 10^6/uL (3.5-6.1); RED CELL DISTRIBUTION WIDTH 19.6 % (11.5-14.5); WHITE BLOOD COUNT 4.2 10^3/ul (4.5-11.0)
[2017-12-26 08:38] LABS: ALB/GLOB RATIO 0.7 (1.1-1.8); ALBUMIN 2.2 g/dL (3.0-4.8); ALT/SGPT 36 U/L (7-56); AST/SGOT 36 U/L (14-36); BLOOD UREA NITROGEN 11 mg/dL (7-21); CALCIUM 7.8 mg/dL (8.4-10.5); GFR AFRICAN-AMERICAN > 60; GFR NON-AFRICAN AMERICAN > 60
[2017-12-26] MEDS ORDERED: Alum-Mag Hydrox-Simethicone Susp (30 mL) ONE (09:01)
[2017-12-26 09:05] LABS: VENOUS BLOOD GAS BASE EXCESS -5.9 mmol/L (0.0-2.0); VENOUS BLOOD GAS PO2 57 mm/Hg (30-55); VENOUS BLOOD PH 7.36 (7.32-7.43)
--- NOTE | 2017-12-26 09:15 | CP.CCUPN ---
<Shereen Mccord - Last Filed: 12/26/17 14:27> CCU Subjective - Physician Review Subjective (Free Text): 12/26/17 14:21 Per pt, Scanty diarrhea. Abdominal pain resolved. throat hurt when swallows. No other complain CCU Objective - Vital Signs / Intake & Output Vital Signs (Last 4 hours): Vital Signs Pulse Resp BP Pulse Ox 12/26/17 07:50 101 H 23 99 12/26/17 07:40 96 H 15 99 12/26/17 07:30 97 H 17 101/49 L 98 12/26/17 07:20 97 H 18 98 12/26/17 07:10 98 H 15 98 12/26/17 07:00 99 H 16 102/43 L 98 12/26/17 06:50 99 H 16 99 12/26/17 06:40 100 H 22 99 12/26/17 06:30 101 H 23 96/43 L 97 12/26/17 06:20 102 H 19 97 12/26/17 06:10 103 H 18 97 12/26/17 06:00 103 H 19 102/45 L 97 12/26/17 05:50 101 H 16 96 12/26/17 05:40 102 H 19 97 12/26/17 05:30 102 H 20 97/37 L 97 12/26/17 05:20 101 H 21 96 - Physical Exam Head: Positive for: Atraumatic. Negative for: Tenderness, Contusion, Swelling Pupils: Positive for: PERRL. Negative for: Pinpoint Extroacular Muscles: Positive for: EOMI. Negative for: Other Conjunctiva: Positive for: Icteric. Negative for: Injected Mouth: Positive for: Dry, Other (ulcer with white top at R inner buccal membrane ). Negative for: Moist Mucous Membranes, Normal Lips (cracked, dry) Nose (External): Positive for: Atraumatic. Negative for: Abrasion, Laceration Nose (Internal): Positive for: No Active Bleeding. Negative for: Moist, Epistaxis Neck: Positive for: Normal Range of Motion. Negative for: JVD Respiratory/Chest: Positive for: Decreased Breath Sounds. Negative for: Respiratory Distress, Accessory Muscle Use, Wheezes, Rales, Rhonchi Cardiovascular: Positive for: Normal S1, S2, Peripheal Pulses Present (+1 bilateral radial pulses, unable to palpate LE pulses), Tachycardic. Negative for: Regular Rate and Rhythm, Murmurs, Irregular Rhythm, Bradycardic Abdomen: Positive for: Distention (not firm or rigid, but distended). Negative for: Tenderness, Normal Bowel Sounds (hyperactive bowel sounds), Feeding Tubes Back: Positive for: Normal Inspection Upper Extremity: Positive for: Normal Inspection, Normal ROM (minimal active ROM spontaneously, but passive ROM intact and able to move on command), NORMAL PULSES. Negative for: Cyanosis, Edema, Tenderness, Swelling, Erythema Lower Extremity: Positive for: Edema (+1 pitting edema in fee/ankles covered by socks, +2 for remaineder of bilateral LE below the knees), Normal ROM (minimal active ROM spontaneously, but passive ROM intact and able to move on command), Swelling, Temperature Abnormalties (cool to palpation). Negative for: Normal Inspection, CALF TENDERNESS, NORMAL PULSES (unable to palpate), Tenderness, Erythema Neurological: Positive for: GCS=15, Other (minimal spontaneous movements due to lethargy, but active ROM on command appropriate). Negative for: Speech Normal ( slow and faint speech, but purposeful and appropriate speech) Skin: Positive for: Warm, Dry, Other (Grossly icteric). Negative for: Normal Color Lymphatic: Positive for: Cervical Adenopathy Psychiatric: Positive for: Alert, Oriented x 3. Negative for: Normal Concentration - Medications Active Medications: Active Medications Generic Name Dose Route Start Last Admin Trade Name Freq PRN Reason Stop Dose Admin Albuterol/Ipratropium 3 ml 12/26/17 08:51 Duoneb 3 Mg/0.5 Mg (3 Ml) Ud IH [id number] PRN Shortness of Breath Arformoterol Tartrate 15 mcg 12/26/17 20:00 Brovana IH [id number] [facility] Budesonide 0.5 mg 12/26/17 20:00 Pulmicort Respules IH [id number] EMILIE Al Hydrox/Mg Hydrox/ 0 ml 12/24/17 17:26 12/25/17 04:04 Simethicone 30 ml/ PO 30 ml Diphenhydramine HCl 75 mg/ Q2H PRN Administration Lidocaine 30 ml Mouth/Throat Pain Vancomycin HCl 1 gm in 250 mls @ 167 mls/hr 12/24/17 15:45 06/08/18 03:21 Vancomycin 1gm IVPB 167 mls/hr Q12H EMILIE Administration Protocol Metronidazole 500 mg in 100 mls @ 100 mls/hr 12/24/17 16:00 12/26/17 06:17 Flagyl IVPB 100 mls/hr Q8 EMILIE Administration Protocol Dextrose/Sodium Chloride 1,000 mls @ 100 mls/hr 12/24/17 16:00 12/25/17 22:31 Dextrose 5%/0.9% Ns 1000 Ml IV 100 mls/hr .Q10H EMILIE Administration Meropenem 50 mls @ 100 mls/hr 12/25/17 06:30 12/26/17 06:17 Merrem Iv 1 Gm Premix IVPB 01/01/18 06:31 100 mls/hr Q8 EMILIE Administration Protocol Lidocaine HCl 15 ml 12/25/17 16:30 12/26/17 09:06 Lidocaine 2% Viscous MM 15 ml Q3H PRN Administration Other Nystatin 5 ml 12/24/17 18:00 12/25/17 22:28 Nystatin Oral Susp PO 5 ml QID EMILIE Administration Pantoprazole Sodium 40 mg 12/25/17 10:00 12/25/17 12:54 Protonix Inj IVP 40 mg DAILY EMILIE Administration Vancomycin HCl 125 mg 12/25/17 14:00 12/25/17 22:30 Vancocin 25 Mg/Ml (Oral Use) PO 125 mg QID EMILIE Administration Protocol - Patient Studies Lab Studies: Lab Studies 12/26/17 12/26/17 12/26/17 Range/Units 09:00 08:00 07:32 WBC (4.5-11.0) 10^3/ul RBC (3.5-6.1) 10^6/uL Hgb (12.0-16.0) g/dL Hct (36.0-48.0) % MCV (80.0-105.0) fl MCH (25.0-35.0) pg MCHC (31.0-37.0) g/dl RDW (11.5-14.5) % Plt Count (120.0-450.0) 10^3/uL Gran % (50.0-68.0) % Lymph % (Auto) (22.0-35.0) % Chaves % (Auto) (1.0-6.0) % Eos % (Auto) (1.5-5.0) % Baso % (Auto) (0.0-3.0) % Gran # (1.4-6.5) Lymph # (Auto) (1.2-3.4) Chaves # (Auto) (0.1-0.6) Eos # (Auto) (0.0-0.7) Baso # (Auto) (0.0-2.0) K/mm3 pO2 57 H (30-55) mm/Hg VBG pH 7.36 (7.32-7.43) VBG pCO2 33.0 L (40-60) VBG HCO3 18.6 L (21-28) mmol/l VBG Total CO2 19.6 L (22-28) mmol.L VBG O2 Sat (Calc) 93.9 H (40-65) % VBG Base Excess -5.9 L (0.0-2.0) mmol/L VBG Potassium 2.8 L (3.6-5.2) mmol/L Sodium 138.0 141 (132-148) mmol/L Chloride 113.0 H 112 H (98-107) mmol/L Glucose 105 (65-105) mg/dl Lactate 2.7 H (0.7-2.1) mmol/L FiO2 21.0 % Potassium 3.0 L (3.6-5.0) mmol/L Carbon Dioxide 17 L (21-33) mmol/L Anion Gap 14 (10-20) BUN 11 (7-21) mg/dL Creatinine 0.5 L (0.7-1.2) mg/dl Est GFR ( Amer) > 60 Est GFR (Non-Af Amer) > 60 POC Glucose (mg/dL) 82 (65-110) mg/dL Random Glucose 85 (70-110) mg/dL Calcium 7.8 L (8.4-10.5) mg/dL Phosphorus (2.5-4.5) mg/dL Magnesium 1.5 L (1.7-2.2) mg/dL Total Bilirubin 5.7 H (0.2-1.3) mg/dL AST 36 (14-36) U/L ALT 36 (7-56) U/L Alkaline Phosphatase 150 H D (38-126) U/L Lactate Dehydrogenase (333-699) U/L Total Protein 5.5 L (5.8-8.3) g/dL Albumin 2.2 L (3.0-4.8) g/dL Globulin 3.3 gm/dL Albumin/Globulin Ratio 0.7 L (1.1-1.8) Procalcitonin (0.19-0.49) NG/ML Venous Blood Potassium 2.8 L (3.6-5.2) mmol/L 12/26/17 12/26/17 12/26/17 Range/Units 05:40 05:40 05:30 WBC 4.2 L D (4.5-11.0) 10^3/ul RBC 2.78 L (3.5-6.1) 10^6/uL Hgb 8.7 L (12.0-16.0) g/dL Hct 25.7 L (36.0-48.0) % MCV 92.4 (80.0-105.0) fl MCH 31.3 (25.0-35.0) pg MCHC 33.9 (31.0-37.0) g/dl RDW 19.6 H (11.5-14.5) % Plt Count 73 L (120.0-450.0) 10^3/uL Gran % 39.8 L (50.0-68.0) % Lymph % (Auto) 21.1 L (22.0-35.0) % Chaves % (Auto) 38.2 H (1.0-6.0) % Eos % (Auto) 0.2 L (1.5-5.0) % Baso % (Auto) 0.7 (0.0-3.0) % Gran # 1.68 (1.4-6.5) Lymph # (Auto) 0.9 L (1.2-3.4) Chaves # (Auto) 1.6 H (0.1-0.6) Eos # (Auto) 0.0 (0.0-0.7) Baso # (Auto) 0.03 (0.0-2.0) K/mm3 pO2 (30-55) mm/Hg VBG pH (7.32-7.43) VBG pCO2 (40-60) VBG HCO3 (21-28) mmol/l VBG Total CO2 (22-28) mmol.L VBG O2 Sat (Calc) (40-65) % VBG Base Excess (0.0-2.0) mmol/L VBG Potassium (3.6-5.2) mmol/L Sodium (132-148) mmol/L Chloride (98-107) mmol/L Glucose (65-105) mg/dl Lactate (0.7-2.1) mmol/L FiO2 % Potassium (3.6-5.0) mmol/L Carbon Dioxide (21-33) mmol/L Anion Gap (10-20) BUN (7-21) mg/dL Creatinine (0.7-1.2) mg/dl Est GFR ( Amer) Est GFR (Non-Af Amer) POC Glucose (mg/dL) (65-110) mg/dL Random Glucose (70-110) mg/dL Calcium (8.4-10.5) mg/dL Phosphorus 1.7 L (2.5-4.5) mg/dL Magnesium (1.7-2.2) mg/dL Total Bilirubin (0.2-1.3) mg/dL AST (14-36) U/L ALT (7-56) U/L Alkaline Phosphatase (38-126) U/L Lactate Dehydrogenase 390 (333-699) U/L Total Protein (5.8-8.3) g/dL Albumin (3.0-4.8) g/dL Globulin gm/dL Albumin/Globulin Ratio (1.1-1.8) Procalcitonin (0.19-0.49) NG/ML Venous Blood Potassium (3.6-5.2) mmol/L 12/26/17 12/25/17 12/25/17 Range/Units 03:59 23:56 19:56 WBC (4.5-11.0) 10^3/ul RBC (3.5-6.1) 10^6/uL Hgb (12.0-16.0) g/dL Hct (36.0-48.0) % MCV (80.0-105.0) fl MCH (25.0-35.0) pg MCHC (31.0-37.0) g/dl RDW (11.5-14.5) % Plt Count (120.0-450.0) 10^3/uL Gran % (50.0-68.0) % Lymph % (Auto) (22.0-35.0) % Chaves % (Auto) (1.0-6.0) % Eos % (Auto) (1.5-5.0) % Baso % (Auto) (0.0-3.0) % Gran # (1.4-6.5) Lymph # (Auto) (1.2-3.4) Chaves # (Auto) (0.1-0.6) Eos # (Auto) (0.0-0.7) Baso # (Auto) (0.0-2.0) K/mm3 pO2 (30-55) mm/Hg VBG pH (7.32-7.43) VBG pCO2 (40-60) VBG HCO3 (21-28) mmol/l VBG Total CO2 (22-28) mmol.L VBG O2 Sat (Calc) (40-65) % VBG Base Excess (0.0-2.0) mmol/L VBG Potassium (3.6-5.2) mmol/L Sodium (132-148) mmol/L Chloride (98-107) mmol/L Glucose (65-105) mg/dl Lactate (0.7-2.1) mmol/L FiO2 % Potassium (3.6-5.0) mmol/L Carbon Dioxide (21-33) mmol/L Anion Gap (10-20) BUN (7-21) mg/dL Creatinine (0.7-1.2) mg/dl Est GFR ( Amer) Est GFR (Non-Af Amer) POC Glucose (mg/dL) 89 110 98 (65-110) mg/dL Random Glucose (70-110) mg/dL Calcium (8.4-10.5) mg/dL Phosphorus (2.5-4.5) mg/dL Magnesium (1.7-2.2) mg/dL Total Bilirubin (0.2-1.3) mg/dL AST (14-36) U/L ALT (7-56) U/L Alkaline Phosphatase (38-126) U/L Lactate Dehydrogenase (333-699) U/L Total Protein (5.8-8.3) g/dL Albumin (3.0-4.8) g/dL Globulin gm/dL Albumin/Globulin Ratio (1.1-1.8) Procalcitonin (0.19-0.49) NG/ML Venous Blood Potassium (3.6-5.2) mmol/L 12/25/17 12/25/17 12/25/17 Range/Units 16:19 16:01 11:59 WBC (4.5-11.0) 10^3/ul RBC (3.5-6.1) 10^6/uL Hgb (12.0-16.0) g/dL Hct (36.0-48.0) % MCV (80.0-105.0) fl MCH (25.0-35.0) pg MCHC (31.0-37.0) g/dl RDW (11.5-14.5) % Plt Count (120.0-450.0) 10^3/uL Gran % (50.0-68.0) % Lymph % (Auto) (22.0-35.0) % Chaves % (Auto) (1.0-6.0) % Eos % (Auto) (1.5-5.0) % Baso % (Auto) (0.0-3.0) % Gran # (1.4-6.5) Lymph # (Auto) (1.2-3.4) Chaves # (Auto) (0.1-0.6) Eos # (Auto) (0.0-0.7) Baso # (Auto) (0.0-2.0) K/mm3 pO2 68 H (30-55) mm/Hg VBG pH 7.41 (7.32-7.43) VBG pCO2 32.0 L (40-60) VBG HCO3 20.3 L (21-28) mmol/l VBG Total CO2 21.3 L (22-28) mmol.L VBG O2 Sat (Calc) 98.1 H (40-65) % VBG Base Excess -3.4 L (0.0-2.0) mmol/L VBG Potassium 3.1 L (3.6-5.2) mmol/L Sodium 138 137.0 (132-148) mmol/L Chloride 110 H 110.0 H (98-107) mmol/L Glucose 78 (65-105) mg/dl Lactate 2.2 H (0.7-2.1) mmol/L FiO2 21.0 % Potassium 3.0 L (3.6-5.0) mmol/L Carbon Dioxide 17 L (21-33) mmol/L Anion Gap 14 (10-20) BUN 13 (7-21) mg/dL Creatinine 0.5 L (0.7-1.2) mg/dl Est GFR ( Amer) > 60 Est GFR (Non-Af Amer) > 60 POC Glucose (mg/dL) 122 H (65-110) mg/dL Random Glucose 114 H (70-110) mg/dL Calcium 7.6 L (8.4-10.5) mg/dL Phosphorus (2.5-4.5) mg/dL Magnesium 1.7 (1.7-2.2) mg/dL Total Bilirubin 6.2 H (0.2-1.3) mg/dL AST 30 (14-36) U/L ALT 34 (7-56) U/L Alkaline Phosphatase 123 (38-126) U/L Lactate Dehydrogenase (333-699) U/L Total Protein 5.4 L (5.8-8.3) g/dL Albumin 2.2 L (3.0-4.8) g/dL Globulin 3.2 gm/dL Albumin/Globulin Ratio 0.7 L (1.1-1.8) Procalcitonin (0.19-0.49) NG/ML Venous Blood Potassium 3.1 L (3.6-5.2) mmol/L 12/25/17 12/24/17 Range/Units 11:43 19:18 WBC (4.5-11.0) 10^3/ul RBC (3.5-6.1) 10^6/uL Hgb (12.0-16.0) g/dL Hct (36.0-48.0) % MCV (80.0-105.0) fl MCH (25.0-35.0) pg MCHC (31.0-37.0) g/dl RDW (11.5-14.5) % Plt Count (120.0-450.0) 10^3/uL Gran % (50.0-68.0) % Lymph % (Auto) (22.0-35.0) % Chaves % (Auto) (1.0-6.0) % Eos % (Auto) (1.5-5.0) % Baso % (Auto) (0.0-3.0) % Gran # (1.4-6.5) Lymph # (Auto) (1.2-3.4) Chaves # (Auto) (0.1-0.6) Eos # (Auto) (0.0-0.7) Baso # (Auto) (0.0-2.0) K/mm3 pO2 (30-55) mm/Hg VBG pH (7.32-7.43) VBG pCO2 (40-60) VBG HCO3 (21-28) mmol/l VBG Total CO2 (22-28) mmol.L VBG O2 Sat (Calc) (40-65) % VBG Base Excess (0.0-2.0) mmol/L VBG Potassium (3.6-5.2) mmol/L Sodium (132-148) mmol/L Chloride (98-107) mmol/L Glucose (65-105) mg/dl Lactate (0.7-2.1) mmol/L FiO2 % Potassium (3.6-5.0) mmol/L Carbon Dioxide (21-33) mmol/L Anion Gap (10-20) BUN (7-21) mg/dL Creatinine (0.7-1.2) mg/dl Est GFR ( Amer) Est GFR (Non-Af Amer) POC Glucose (mg/dL) 82 (65-110) mg/dL Random Glucose (70-110) mg/dL Calcium (8.4-10.5) mg/dL Phosphorus (2.5-4.5) mg/dL Magnesium (1.7-2.2) mg/dL Total Bilirubin (0.2-1.3) mg/dL AST (14-36) U/L ALT (7-56) U/L Alkaline Phosphatase (38-126) U/L Lactate Dehydrogenase (333-699) U/L Total Protein (5.8-8.3) g/dL Albumin (3.0-4.8) g/dL Globulin gm/dL Albumin/Globulin Ratio (1.1-1.8) Procalcitonin 1.69 H (0.19-0.49) NG/ML Venous Blood Potassium (3.6-5.2) mmol/L Laboratory Results - last 24 hr 12/24/17 12/25/17 12/25/17 19:18 11:43 11:59 WBC RBC Hgb Hct MCV MCH MCHC RDW Plt Count Gran % Lymph % (Auto) Chaves % (Auto) Eos % (Auto) Baso % (Auto) Gran # Lymph # (Auto) Chaves # (Auto) Eos # (Auto) Baso # (Auto) pO2 68 H VBG pH 7.41 VBG pCO2 32.0 L VBG HCO3 20.3 L VBG Total CO2 21.3 L VBG O2 Sat (Calc) 98.1 H VBG Base Excess -3.4 L VBG Potassium 3.1 L Sodium 137.0 Chloride 110.0 H Glucose 78 Lactate 2.2 H FiO2 21.0 Potassium Carbon Dioxide Anion Gap BUN Creatinine Est GFR ( Amer) Est GFR (Non-Af Amer) POC Glucose (mg/dL) 82 Random Glucose Calcium Phosphorus Magnesium Total Bilirubin AST ALT Alkaline Phosphatase Lactate Dehydrogenase Total Protein Albumin Globulin Albumin/Globulin Ratio Procalcitonin 1.69 H Venous Blood Potassium 3.1 L 12/25/17 12/25/17 12/25/17 16:01 16:19 19:56 WBC RBC Hgb Hct MCV MCH MCHC RDW Plt Count Gran % Lymph % (Auto) Chaves % (Auto) Eos % (Auto) Baso % (Auto) Gran # Lymph # (Auto) Chaves # (Auto) Eos # (Auto) Baso # (Auto) pO2 VBG pH VBG pCO2 VBG HCO3 VBG Total CO2 VBG O2 Sat (Calc) VBG Base Excess VBG Potassium Sodium 138 Chloride 110 H Glucose Lactate FiO2 Potassium 3.0 L Carbon Dioxide 17 L Anion Gap 14 BUN 13 Creatinine 0.5 L Est GFR ( Amer) > 60 Est GFR (Non-Af Amer) > 60 POC Glucose (mg/dL) 122 H 98 Random Glucose 114 H Calcium 7.6 L Phosphorus Magnesium 1.7 Total Bilirubin 6.2 H AST 30 ALT 34 Alkaline Phosphatase 123 Lactate Dehydrogenase Total Protein 5.4 L Albumin 2.2 L Globulin 3.2 Albumin/Globulin Ratio 0.7 L Procalcitonin Venous Blood Potassium 12/25/17 12/26/17 12/26/17 23:56 03:59 05:30 WBC RBC Hgb Hct MCV MCH MCHC RDW Plt Count Gran % Lymph % (Auto) Chaves % (Auto) Eos % (Auto) Baso % (Auto) Gran # Lymph # (Auto) Chaves # (Auto) Eos # (Auto) Baso # (Auto) pO2 VBG pH VBG pCO2 VBG HCO3 VBG Total CO2 VBG O2 Sat (Calc) VBG Base Excess VBG Potassium Sodium Chloride Glucose Lactate FiO2 Potassium Carbon Dioxide Anion Gap BUN Creatinine Est GFR ( Amer) Est GFR (Non-Af Amer) POC Glucose (mg/dL) 110 89 Random Glucose Calcium Phosphorus Magnesium Total Bilirubin AST ALT Alkaline Phosphatase Lactate Dehydrogenase 390 Total Protein Albumin Globulin Albumin/Globulin Ratio Procalcitonin Venous Blood Potassium 12/26/17 12/26/17 12/26/17 05:40 05:40 07:32 WBC 4.2 L D RBC 2.78 L Hgb 8.7 L Hct 25.7 L MCV 92.4 MCH 31.3 MCHC 33.9 RDW 19.6 H Plt Count 73 L Gran % 39.8 L Lymph % (Auto) 21.1 L Chaves % (Auto) 38.2 H Eos % (Auto) 0.2 L Baso % (Auto) 0.7 Gran # 1.68 Lymph # (Auto) 0.9 L Chaves # (Auto) 1.6 H Eos # (Auto) 0.0 Baso # (Auto) 0.03 pO2 VBG pH VBG pCO2 VBG HCO3 VBG Total CO2 VBG O2 Sat (Calc) VBG Base Excess VBG Potassium Sodium Chloride Glucose Lactate FiO2 Potassium Carbon Dioxide Anion Gap BUN Creatinine Est GFR ( Amer) Est GFR (Non-Af Amer) POC Glucose (mg/dL) 82 Random Glucose Calcium Phosphorus 1.7 L Magnesium Total Bilirubin AST ALT Alkaline Phosphatase Lactate Dehydrogenase Total Protein Albumin Globulin Albumin/Globulin Ratio Procalcitonin Venous Blood Potassium 12/26/17 12/26/17 08:00 09:00 WBC RBC Hgb Hct MCV MCH MCHC RDW Plt Count Gran % Lymph % (Auto) Chaves % (Auto) Eos % (Auto) Baso % (Auto) Gran # Lymph # (Auto) Chaves # (Auto) Eos # (Auto) Baso # (Auto) pO2 57 H VBG pH 7.36 VBG pCO2 33.0 L VBG HCO3 18.6 L VBG Total CO2 19.6 L VBG O2 Sat (Calc) 93.9 H VBG Base Excess -5.9 L VBG Potassium 2.8 L Sodium 141 138.0 Chloride 112 H 113.0 H Glucose 105 Lactate 2.7 H FiO2 21.0 Potassium 3.0 L Carbon Dioxide 17 L Anion Gap 14 BUN 11 Creatinine 0.5 L Est GFR ( Amer) > 60 Est GFR (Non-Af Amer) > 60 POC Glucose (mg/dL) Random Glucose 85 Calcium 7.8 L Phosphorus Magnesium 1.5 L Total Bilirubin 5.7 H AST 36 ALT 36 Alkaline Phosphatase 150 H D Lactate Dehydrogenase Total Protein 5.5 L Albumin 2.2 L Globulin 3.3 Albumin/Globulin Ratio 0.7 L Procalcitonin Venous Blood Potassium 2.8 L Fingerstick Blood Sugar Results: 89 Critical Care Progress Note - Nutrition Nutrition: Nutrition Category Date Time Status Dysphagia/Modified Consistency Diet [DIET] Diets 12/26/17 Breakfast Ordered Assessment/Plan - Assessment and Plan (Free Text) Plan: Ms Larios, 72 female with PMHx COPD, metastatic cholangiocarcinoma, on chemo ( last wed) followed by Dr. Staton Hx primary sclerosing cholangitis s/p biliary stent placement, ERCP Hx liver cirrhosis, ulcerative colitis, giant cell arteritis, RA, C/o diarrhea and jaundice x 7d. Pt is admitted to ICU for neutropenic fever She is found to have pancytopenic with coagulopathy CT abdomen/Pelvis showed segmental colitis at proximal, mid large bowel, and Left hemicolon. No abscess. No free air. (+) gross intrahepatic billiary dilatation with lengthy stent radiating A: Neutropenic fever, with pancytopenia and coagulopathy due to chemo-induced vs sepsis Sepsis likely due to Pancolitis. Oral Thrush Jaundice likely chemo-induced biliary obstruction R/o hemolytic anemia Hx COPD Neuro - maintain nomothermia Pulm - Fluticasone/Salumedrol - Duoneb PRN Card - On monitor HR/BP GI - Odynophagia. Finely chopped/low microbial diet Viscous lidocaine No plan to procedure. Medical managmeent - Urinary incontience Endo - Maintain glucose 140-180 Heme - No DIC (Fibrinogen, FDP nl). Pending smear, Haptoglobin, Clare ID - Pancolitis on Vancomycin, Merrem, Flagyl - PO vanco Pending C.diff result PVX - protonix, SCD Dispo plan - Patient made DNR/DNI - Transferred to tele s/r/d/w Dr Ojdea <Barron Ojeda - Last Filed: 12/26/17 17:33> CCU Objective - Vital Signs / Intake & Output Vital Signs (Last 4 hours): Vital Signs Pulse Resp BP Pulse Ox 12/26/17 14:31 114/55 L 12/26/17 14:29 99 H 22 98 12/26/17 14:20 100 H 22 98 12/26/17 14:10 96 H 15 97 12/26/17 14:00 97 H 17 105/47 L 97 12/26/17 13:50 98 H 19 98 12/26/17 13:40 99 H 22 98 - Medications Active Medications: Active Medications Generic Name Dose Route Start Last Admin Trade Name Freq PRN Reason Stop Dose Admin Albuterol/Ipratropium 3 ml 12/26/17 08:51 Duoneb 3 Mg/0.5 Mg (3 Ml) Ud IH [id number] PRN Shortness of Breath Arformoterol Tartrate 15 mcg 12/26/17 20:00 Brovana IH [id number] EMILIE Budesonide 0.5 mg 12/26/17 20:00 Pulmicort Respules IH [id number] EMILIE Al Hydrox/Mg Hydrox/ 0 ml 12/24/17 17:26 12/25/17 04:04 Simethicone 30 ml/ PO 30 ml Diphenhydramine HCl 75 mg/ Q2H PRN Administration Lidocaine 30 ml Mouth/Throat Pain Metronidazole 500 mg in 100 mls @ 100 mls/hr 12/24/17 16:00 12/26/17 14:12 Flagyl IVPB 100 mls/hr Q8 EMILIE Administration Protocol Dextrose/Sodium Chloride 1,000 mls @ 100 mls/hr 12/24/17 16:00 12/26/17 10:34 Dextrose 5%/0.9% Ns 1000 Ml IV 100 mls/hr .Q10H EMILIE Administration Meropenem 50 mls @ 100 mls/hr 12/25/17 06:30 12/26/17 14:13 Merrem Iv 1 Gm Premix IVPB 01/01/18 06:31 100 mls/hr Q8 EMILIE Administration Protocol Lidocaine HCl 15 ml 12/25/17 16:30 12/26/17 09:06 Lidocaine 2% Viscous MM 15 ml Q3H PRN Administration Other Nystatin 5 ml 12/24/17 18:00 12/26/17 14:15 Nystatin Oral Susp PO 5 ml QID EMILIE Administration Pantoprazole Sodium 40 mg 12/25/17 10:00 12/26/17 10:33 Protonix Inj IVP 40 mg DAILY EMILIE Administration Vancomycin HCl 125 mg 12/25/17 14:00 12/26/17 14:09 Vancocin 25 Mg/Ml (Oral Use) PO 125 mg QID EMILIE Administration Protocol - Patient Studies Lab Studies: Microbiology Studies 12/24/17 22:22 MRSA Culture (Admit) - Final Naris MRSA NOT DETECTED 12/26/17 09:00 C. difficile Antigen & Toxin A,B (M - Final Stool 12/25/17 11:25 Blood Culture - Preliminary Blood NO GROWTH AFTER 24 HOURS 12/25/17 11:00 Blood Culture - Preliminary Blood NO GROWTH AFTER 24 HOURS Lab Studies 12/26/17 12/26/17 12/26/17 Range/Units 15:40 13:30 11:19 WBC (4.5-11.0) 10^3/ul RBC (3.5-6.1) 10^6/uL Hgb (12.0-16.0) g/dL Hct (36.0-48.0) % MCV (80.0-105.0) fl MCH (25.0-35.0) pg MCHC (31.0-37.0) g/dl RDW (11.5-14.5) % Plt Count (120.0-450.0) 10^3/uL Gran % (50.0-68.0) % Lymph % (Auto) (22.0-35.0) % Chaves % (Auto) (1.0-6.0) % Eos % (Auto) (1.5-5.0) % Baso % (Auto) (0.0-3.0) % Gran # (1.4-6.5) Lymph # (Auto) (1.2-3.4) Chaves # (Auto) (0.1-0.6) Eos # (Auto) (0.0-0.7) Baso # (Auto) (0.0-2.0) K/mm3 Haptoglobin (30.0-200.0) mg/dL PT (9.4-12.5) SECONDS INR (0.93-1.08) APTT (25.1-36.5) Seconds pO2 107 H (30-55) mm/Hg VBG pH 7.38 (7.32-7.43) VBG pCO2 31.0 L (40-60) VBG HCO3 18.3 L (21-28) mmol/l VBG Total CO2 19.3 L (22-28) mmol.L VBG O2 Sat (Calc) 100.0 H (40-65) % VBG Base Excess -5.7 L (0.0-2.0) mmol/L VBG Potassium 3.1 L (3.6-5.2) mmol/L Glucose 100 (65-105) mg/dl Lactate 3.1 H (0.7-2.1) mmol/L FiO2 21.0 % Sodium 137.0 (132-148) mmol/L Potassium (3.6-5.0) mmol/L Chloride 114.0 H (98-107) mmol/L Carbon Dioxide (21-33) mmol/L Anion Gap (10-20) BUN (7-21) mg/dL Creatinine (0.7-1.2) mg/dl Est GFR ( Amer) Est GFR (Non-Af Amer) POC Glucose (mg/dL) 125 H 113 H (65-110) mg/dL Random Glucose (70-110) mg/dL Calcium (8.4-10.5) mg/dL Phosphorus (2.5-4.5) mg/dL Magnesium (1.7-2.2) mg/dL Total Bilirubin (0.2-1.3) mg/dL Direct Bilirubin (0.0-0.4) mg/dL AST (14-36) U/L ALT (7-56) U/L Alkaline Phosphatase (38-126) U/L Lactate Dehydrogenase (333-699) U/L Total Protein (5.8-8.3) g/dL Albumin (3.0-4.8) g/dL Globulin gm/dL Albumin/Globulin Ratio (1.1-1.8) Venous Blood Potassium 3.1 L (3.6-5.2) mmol/L JEAN MARIE, Poly Interpret (NEGATIVE) 12/26/17 12/26/17 12/26/17 Range/Units 09:00 09:00 09:00 WBC (4.5-11.0) 10^3/ul RBC (3.5-6.1) 10^6/uL Hgb (12.0-16.0) g/dL Hct (36.0-48.0) % MCV (80.0-105.0) fl MCH (25.0-35.0) pg MCHC (31.0-37.0) g/dl RDW (11.5-14.5) % Plt Count (120.0-450.0) 10^3/uL Gran % (50.0-68.0) % Lymph % (Auto) (22.0-35.0) % Chaves % (Auto) (1.0-6.0) % Eos % (Auto) (1.5-5.0) % Baso % (Auto) (0.0-3.0) % Gran # (1.4-6.5) Lymph # (Auto) (1.2-3.4) Chaves # (Auto) (0.1-0.6) Eos # (Auto) (0.0-0.7) Baso # (Auto) (0.0-2.0) K/mm3 Haptoglobin 123.5 (30.0-200.0) mg/dL PT 24.8 H (9.4-12.5) SECONDS INR 2.12 H (0.93-1.08) APTT 30.5 (25.1-36.5) Seconds pO2 57 H (30-55) mm/Hg VBG pH 7.36 (7.32-7.43) VBG pCO2 33.0 L (40-60) VBG HCO3 18.6 L (21-28) mmol/l VBG Total CO2 19.6 L (22-28) mmol.L VBG O2 Sat (Calc) 93.9 H (40-65) % VBG Base Excess -5.9 L (0.0-2.0) mmol/L VBG Potassium 2.8 L (3.6-5.2) mmol/L Glucose 105 (65-105) mg/dl Lactate 2.7 H (0.7-2.1) mmol/L FiO2 21.0 % Sodium 138.0 (132-148) mmol/L Potassium (3.6-5.0) mmol/L Chloride 113.0 H (98-107) mmol/L Carbon Dioxide (21-33) mmol/L Anion Gap (10-20) BUN (7-21) mg/dL Creatinine (0.7-1.2) mg/dl Est GFR ( Amer) Est GFR (Non-Af Amer) POC Glucose (mg/dL) (65-110) mg/dL Random Glucose (70-110) mg/dL Calcium (8.4-10.5) mg/dL Phosphorus (2.5-4.5) mg/dL Magnesium (1.7-2.2) mg/dL Total Bilirubin (0.2-1.3) mg/dL Direct Bilirubin (0.0-0.4) mg/dL AST (14-36) U/L ALT (7-56) U/L Alkaline Phosphatase (38-126) U/L Lactate Dehydrogenase (333-699) U/L Total Protein (5.8-8.3) g/dL Albumin (3.0-4.8) g/dL Globulin gm/dL Albumin/Globulin Ratio (1.1-1.8) Venous Blood Potassium 2.8 L (3.6-5.2) mmol/L JEAN MARIE, Poly Interpret (NEGATIVE) 12/26/17 12/26/17 12/26/17 Range/Units 08:00 08:00 07:32 WBC (4.5-11.0) 10^3/ul RBC (3.5-6.1) 10^6/uL Hgb (12.0-16.0) g/dL Hct (36.0-48.0) % MCV (80.0-105.0) fl MCH (25.0-35.0) pg MCHC (31.0-37.0) g/dl RDW (11.5-14.5) % Plt Count (120.0-450.0) 10^3/uL Gran % (50.0-68.0) % Lymph % (Auto) (22.0-35.0) % Chaves % (Auto) (1.0-6.0) % Eos % (Auto) (1.5-5.0) % Baso % (Auto) (0.0-3.0) % Gran # (1.4-6.5) Lymph # (Auto) (1.2-3.4) Chaves # (Auto) (0.1-0.6) Eos # (Auto) (0.0-0.7) Baso # (Auto) (0.0-2.0) K/mm3 Haptoglobin (30.0-200.0) mg/dL PT (9.4-12.5) SECONDS INR (0.93-1.08) APTT (25.1-36.5) Seconds pO2 (30-55) mm/Hg VBG pH (7.32-7.43) VBG pCO2 (40-60) VBG HCO3 (21-28) mmol/l VBG Total CO2 (22-28) mmol.L VBG O2 Sat (Calc) (40-65) % VBG Base Excess (0.0-2.0) mmol/L VBG Potassium (3.6-5.2) mmol/L Glucose (65-105) mg/dl Lactate (0.7-2.1) mmol/L FiO2 % Sodium 141 (132-148) mmol/L Potassium 3.0 L (3.6-5.0) mmol/L Chloride 112 H (98-107) mmol/L Carbon Dioxide 17 L (21-33) mmol/L Anion Gap 14 (10-20) BUN 11 (7-21) mg/dL Creatinine 0.5 L (0.7-1.2) mg/dl Est GFR ( Amer) > 60 Est GFR (Non-Af Amer) > 60 POC Glucose (mg/dL) 82 (65-110) mg/dL Random Glucose 85 (70-110) mg/dL Calcium 7.8 L (8.4-10.5) mg/dL Phosphorus (2.5-4.5) mg/dL Magnesium 1.5 L (1.7-2.2) mg/dL Total Bilirubin 5.7 H (0.2-1.3) mg/dL Direct Bilirubin 4.2 H (0.0-0.4) mg/dL AST 36 (14-36) U/L ALT 36 (7-56) U/L Alkaline Phosphatase 150 H D (38-126) U/L Lactate Dehydrogenase (333-699) U/L Total Protein 5.5 L (5.8-8.3) g/dL Albumin 2.2 L (3.0-4.8) g/dL Globulin 3.3 gm/dL Albumin/Globulin Ratio 0.7 L (1.1-1.8) Venous Blood Potassium (3.6-5.2) mmol/L JEAN MARIE, Poly Interpret (NEGATIVE) 12/26/17 12/26/17 12/26/17 Range/Units 07:00 05:40 05:40 WBC 4.2 L D (4.5-11.0) 10^3/ul RBC 2.78 L (3.5-6.1) 10^6/uL Hgb 8.7 L (12.0-16.0) g/dL Hct 25.7 L (36.0-48.0) % MCV 92.4 (80.0-105.0) fl MCH 31.3 (25.0-35.0) pg MCHC 33.9 (31.0-37.0) g/dl RDW 19.6 H (11.5-14.5) % Plt Count 73 L (120.0-450.0) 10^3/uL Gran % 39.8 L (50.0-68.0) % Lymph % (Auto) 21.1 L (22.0-35.0) % Chaves % (Auto) 38.2 H (1.0-6.0) % Eos % (Auto) 0.2 L (1.5-5.0) % Baso % (Auto) 0.7 (0.0-3.0) % Gran # 1.68 (1.4-6.5) Lymph # (Auto) 0.9 L (1.2-3.4) Chaves # (Auto) 1.6 H (0.1-0.6) Eos # (Auto) 0.0 (0.0-0.7) Baso # (Auto) 0.03 (0.0-2.0) K/mm3 Haptoglobin (30.0-200.0) mg/dL PT (9.4-12.5) SECONDS INR (0.93-1.08) APTT (25.1-36.5) Seconds pO2 (30-55) mm/Hg VBG pH (7.32-7.43) VBG pCO2 (40-60) VBG HCO3 (21-28) mmol/l VBG Total CO2 (22-28) mmol.L VBG O2 Sat (Calc) (40-65) % VBG Base Excess (0.0-2.0) mmol/L VBG Potassium (3.6-5.2) mmol/L Glucose (65-105) mg/dl Lactate (0.7-2.1) mmol/L FiO2 % Sodium (132-148) mmol/L Potassium (3.6-5.0) mmol/L Chloride (98-107) mmol/L Carbon Dioxide (21-33) mmol/L Anion Gap (10-20) BUN (7-21) mg/dL Creatinine (0.7-1.2) mg/dl Est GFR ( Amer) Est GFR (Non-Af Amer) POC Glucose (mg/dL) (65-110) mg/dL Random Glucose (70-110) mg/dL Calcium (8.4-10.5) mg/dL Phosphorus 1.7 L (2.5-4.5) mg/dL Magnesium (1.7-2.2) mg/dL Total Bilirubin (0.2-1.3) mg/dL Direct Bilirubin (0.0-0.4) mg/dL AST (14-36) U/L ALT (7-56) U/L Alkaline Phosphatase (38-126) U/L Lactate Dehydrogenase (333-699) U/L Total Protein (5.8-8.3) g/dL Albumin (3.0-4.8) g/dL Globulin gm/dL Albumin/Globulin Ratio (1.1-1.8) Venous Blood Potassium (3.6-5.2) mmol/L JEAN MARIE, Poly Interpret Negative (NEGATIVE) 12/26/17 12/26/17 12/25/17 Range/Units 05:30 03:59 23:56 WBC (4.5-11.0) 10^3/ul RBC (3.5-6.1) 10^6/uL Hgb (12.0-16.0) g/dL Hct (36.0-48.0) % MCV (80.0-105.0) fl MCH (25.0-35.0) pg MCHC (31.0-37.0) g/dl RDW (11.5-14.5) % Plt Count (120.0-450.0) 10^3/uL Gran % (50.0-68.0) % Lymph % (Auto) (22.0-35.0) % Chaves % (Auto) (1.0-6.0) % Eos % (Auto) (1.5-5.0) % Baso % (Auto) (0.0-3.0) % Gran # (1.4-6.5) Lymph # (Auto) (1.2-3.4) Chaves # (Auto) (0.1-0.6) Eos # (Auto) (0.0-0.7) Baso # (Auto) (0.0-2.0) K/mm3 Haptoglobin (30.0-200.0) mg/dL PT (9.4-12.5) SECONDS INR (0.93-1.08) APTT (25.1-36.5) Seconds pO2 (30-55) mm/Hg VBG pH (7.32-7.43) VBG pCO2 (40-60) VBG HCO3 (21-28) mmol/l VBG Total CO2 (22-28) mmol.L VBG O2 Sat (Calc) (40-65) % VBG Base Excess (0.0-2.0) mmol/L VBG Potassium (3.6-5.2) mmol/L Glucose (65-105) mg/dl Lactate (0.7-2.1) mmol/L FiO2 % Sodium (132-148) mmol/L Potassium (3.6-5.0) mmol/L Chloride (98-107) mmol/L Carbon Dioxide (21-33) mmol/L Anion Gap (10-20) BUN (7-21) mg/dL Creatinine (0.7-1.2) mg/dl Est GFR ( Amer) Est GFR (Non-Af Amer) POC Glucose (mg/dL) 89 110 (65-110) mg/dL Random Glucose (70-110) mg/dL Calcium (8.4-10.5) mg/dL Phosphorus (2.5-4.5) mg/dL Magnesium (1.7-2.2) mg/dL Total Bilirubin (0.2-1.3) mg/dL Direct Bilirubin (0.0-0.4) mg/dL AST (14-36) U/L ALT (7-56) U/L Alkaline Phosphatase (38-126) U/L Lactate Dehydrogenase 390 (333-699) U/L Total Protein (5.8-8.3) g/dL Albumin (3.0-4.8) g/dL Globulin gm/dL Albumin/Globulin Ratio (1.1-1.8) Venous Blood Potassium (3.6-5.2) mmol/L JEAN MARIE, Poly Interpret (NEGATIVE) 12/25/17 Range/Units 19:56 WBC (4.5-11.0) 10^3/ul RBC (3.5-6.1) 10^6/uL Hgb (12.0-16.0) g/dL Hct (36.0-48.0) % MCV (80.0-105.0) fl MCH (25.0-35.0) pg MCHC (31.0-37.0) g/dl RDW (11.5-14.5) % Plt Count (120.0-450.0) 10^3/uL Gran % (50.0-68.0) % Lymph % (Auto) (22.0-35.0) % Chaves % (Auto) (1.0-6.0) % Eos % (Auto) (1.5-5.0) % Baso % (Auto) (0.0-3.0) % Gran # (1.4-6.5) Lymph # (Auto) (1.2-3.4) Chaves # (Auto) (0.1-0.6) Eos # (Auto) (0.0-0.7) Baso # (Auto) (0.0-2.0) K/mm3 Haptoglobin (30.0-200.0) mg/dL PT (9.4-12.5) SECONDS INR (0.93-1.08) APTT (25.1-36.5) Seconds pO2 (30-55) mm/Hg VBG pH (7.32-7.43) VBG pCO2 (40-60) VBG HCO3 (21-28) mmol/l VBG Total CO2 (22-28) mmol.L VBG O2 Sat (Calc) (40-65) % VBG Base Excess (0.0-2.0) mmol/L VBG Potassium (3.6-5.2) mmol/L Glucose (65-105) mg/dl Lactate (0.7-2.1) mmol/L FiO2 % Sodium (132-148) mmol/L Potassium (3.6-5.0) mmol/L Chloride (98-107) mmol/L Carbon Dioxide (21-33) mmol/L Anion Gap (10-20) BUN (7-21) mg/dL Creatinine (0.7-1.2) mg/dl Est GFR ( Amer) Est GFR (Non-Af Amer) POC Glucose (mg/dL) 98 (65-110) mg/dL Random Glucose (70-110) mg/dL Calcium (8.4-10.5) mg/dL Phosphorus (2.5-4.5) mg/dL Magnesium (1.7-2.2) mg/dL Total Bilirubin (0.2-1.3) mg/dL Direct Bilirubin (0.0-0.4) mg/dL AST (14-36) U/L ALT (7-56) U/L Alkaline Phosphatase (38-126) U/L Lactate Dehydrogenase (333-699) U/L Total Protein (5.8-8.3) g/dL Albumin (3.0-4.8) g/dL Globulin gm/dL Albumin/Globulin Ratio (1.1-1.8) Venous Blood Potassium (3.6-5.2) mmol/L JEAN MARIE, Poly Interpret (NEGATIVE) Laboratory Results - last 24 hr 12/25/17 12/25/17 12/26/17 19:56 23:56 03:59 WBC RBC Hgb Hct MCV MCH MCHC RDW Plt Count Gran % Lymph % (Auto) Chaves % (Auto) Eos % (Auto) Baso % (Auto) Gran # Lymph # (Auto) Chaves # (Auto) Eos # (Auto) Baso # (Auto) Haptoglobin PT INR APTT pO2 VBG pH VBG pCO2 VBG HCO3 VBG Total CO2 VBG O2 Sat (Calc) VBG Base Excess VBG Potassium Glucose Lactate FiO2 Sodium Potassium Chloride Carbon Dioxide Anion Gap BUN Creatinine Est GFR ( Amer) Est GFR (Non-Af Amer) POC Glucose (mg/dL) 98 110 89 Random Glucose Calcium Phosphorus Magnesium Total Bilirubin Direct Bilirubin AST ALT Alkaline Phosphatase Lactate Dehydrogenase Total Protein Albumin Globulin Albumin/Globulin Ratio Venous Blood Potassium JEAN MARIE, Poly Interpret 12/26/17 12/26/17 12/26/17 05:30 05:40 05:40 WBC 4.2 L D RBC 2.78 L Hgb 8.7 L Hct 25.7 L MCV 92.4 MCH 31.3 MCHC 33.9 RDW 19.6 H Plt Count 73 L Gran % 39.8 L Lymph % (Auto) 21.1 L Chaves % (Auto) 38.2 H Eos % (Auto) 0.2 L Baso % (Auto) 0.7 Gran # 1.68 Lymph # (Auto) 0.9 L Chaves # (Auto) 1.6 H Eos # (Auto) 0.0 Baso # (Auto) 0.03 Haptoglobin PT INR APTT pO2 VBG pH VBG pCO2 VBG HCO3 VBG Total CO2 VBG O2 Sat (Calc) VBG Base Excess VBG Potassium Glucose Lactate FiO2 Sodium Potassium Chloride Carbon Dioxide Anion Gap BUN Creatinine Est GFR ( Amer) Est GFR (Non-Af Amer) POC Glucose (mg/dL) Random Glucose Calcium Phosphorus 1.7 L Magnesium Total Bilirubin Direct Bilirubin AST ALT Alkaline Phosphatase Lactate Dehydrogenase 390 Total Protein Albumin Globulin Albumin/Globulin Ratio Venous Blood Potassium JEAN MARIE, Poly Interpret 12/26/17 12/26/17 12/26/17 07:00 07:32 08:00 WBC RBC Hgb Hct MCV MCH MCHC RDW Plt Count Gran % Lymph % (Auto) Chaves % (Auto) Eos % (Auto) Baso % (Auto) Gran # Lymph # (Auto) Chaves # (Auto) Eos # (Auto) Baso # (Auto) Haptoglobin PT INR APTT pO2 VBG pH VBG pCO2 VBG HCO3 VBG Total CO2 VBG O2 Sat (Calc) VBG Base Excess VBG Potassium Glucose Lactate FiO2 Sodium 141 Potassium 3.0 L Chloride 112 H Carbon Dioxide 17 L Anion Gap 14 BUN 11 Creatinine 0.5 L Est GFR ( Amer) > 60 Est GFR (Non-Af Amer) > 60 POC Glucose (mg/dL) 82 Random Glucose 85 Calcium 7.8 L Phosphorus Magnesium 1.5 L Total Bilirubin 5.7 H Direct Bilirubin AST 36 ALT 36 Alkaline Phosphatase 150 H D Lactate Dehydrogenase Total Protein 5.5 L Albumin 2.2 L Globulin 3.3 Albumin/Globulin Ratio 0.7 L Venous Blood Potassium JEAN MARIE, Poly Interpret Negative 12/26/17 12/26/17 12/26/17 08:00 09:00 09:00 WBC RBC Hgb Hct MCV MCH MCHC RDW Plt Count Gran % Lymph % (Auto) Chaves % (Auto) Eos % (Auto) Baso % (Auto) Gran # Lymph # (Auto) Chaves # (Auto) Eos # (Auto) Baso # (Auto) Haptoglobin 123.5 PT INR APTT pO2 57 H VBG pH 7.36 VBG pCO2 33.0 L VBG HCO3 18.6 L VBG Total CO2 19.6 L VBG O2 Sat (Calc) 93.9 H VBG Base Excess -5.9 L VBG Potassium 2.8 L Glucose 105 Lactate 2.7 H FiO2 21.0 Sodium 138.0 Potassium Chloride 113.0 H Carbon Dioxide Anion Gap BUN Creatinine Est GFR ( Amer) Est GFR (Non-Af Amer) POC Glucose (mg/dL) Random Glucose Calcium Phosphorus Magnesium Total Bilirubin Direct Bilirubin 4.2 H AST ALT Alkaline Phosphatase Lactate Dehydrogenase Total Protein Albumin Globulin Albumin/Globulin Ratio Venous Blood Potassium 2.8 L JEAN MARIE, Poly Interpret 12/26/17 12/26/17 12/26/17 09:00 11:19 13:30 WBC RBC Hgb Hct MCV MCH MCHC RDW Plt Count Gran % Lymph % (Auto) Chaves % (Auto) Eos % (Auto) Baso % (Auto) Gran # Lymph # (Auto) Chaves # (Auto) Eos # (Auto) Baso # (Auto) Haptoglobin PT 24.8 H INR 2.12 H APTT 30.5 pO2 107 H VBG pH 7.38 VBG pCO2 31.0 L VBG HCO3 18.3 L VBG Total CO2 19.3 L VBG O2 Sat (Calc) 100.0 H VBG Base Excess -5.7 L VBG Potassium 3.1 L Glucose 100 Lactate 3.1 H FiO2 21.0 Sodium 137.0 Potassium Chloride 114.0 H Carbon Dioxide Anion Gap BUN Creatinine Est GFR ( Amer) Est GFR (Non-Af Amer) POC Glucose (mg/dL) 113 H Random Glucose Calcium Phosphorus Magnesium Total Bilirubin Direct Bilirubin AST ALT Alkaline Phosphatase Lactate Dehydrogenase Total Protein Albumin Globulin Albumin/Globulin Ratio Venous Blood Potassium 3.1 L JEAN MARIE, Poly Interpret 12/26/17 15:40 WBC RBC Hgb Hct MCV MCH MCHC RDW Plt Count Gran % Lymph % (Auto) Chaves % (Auto) Eos % (Auto) Baso % (Auto) Gran # Lymph # (Auto) Chaves # (Auto) Eos # (Auto) Baso # (Auto) Haptoglobin PT INR APTT pO2 VBG pH VBG pCO2 VBG HCO3 VBG Total CO2 VBG O2 Sat (Calc) VBG Base Excess VBG Potassium Glucose Lactate FiO2 Sodium Potassium Chloride Carbon Dioxide Anion Gap BUN Creatinine Est GFR ( Amer) Est GFR (Non-Af Amer) POC Glucose (mg/dL) 125 H Random Glucose Calcium Phosphorus Magnesium Total Bilirubin Direct Bilirubin AST ALT Alkaline Phosphatase Lactate Dehydrogenase Total Protein Albumin Globulin Albumin/Globulin Ratio Venous Blood Potassium JEAN MARIE, Poly Interpret Critical Care Progress Note - Nutrition Nutrition: Nutrition Category Date Time Status Dysphagia/Modified Consistency Diet [DIET] Diets 12/26/17 Breakfast Ordered Attending/Attestation - Attestation I have personally seen and examined this patient.: Yes I have fully participated in the care of the patient.: Yes I have reviewed all pertinent clinical information: Yes Notes (Text): 12/26/17 17:30 72 yo with neutropenic fever secondary to typhlitis, now substantially improved , clinically, [id number] and subjectively. DNR/DNI status noted. diarrhea subsided. Ok to downgrade to tele ccm time 40 min
[2017-12-26 09:17] LABS: INR 2.12 (0.93-1.08); PARTIAL THROMBOPLASTIN TIME 30.5 Seconds (25.1-36.5); PROTHROMBIN TIME 24.8 SECONDS (9.4-12.5)
[2017-12-26] MEDS: Nystatin 100,000 Units/ml Oral Susp 5 ml UD PO SCH ×4 (10:32→23:00)
[2017-12-26] MEDS: Vancomycin 25 MG/ML PO SCH ×4 (10:33→23:02)
[2017-12-26] MEDS: Dextrose 5%/0.9% NS 1,000 ML IV SCH (10:34)
--- NOTE | 2017-12-26 13:22 | CP.PCM.PN ---
<Rima Lao - Last Filed: 12/26/17 13:21> Subjective - Date & Time of Evaluation Date of Evaluation: 12/26/17 Time of Evaluation: 10:00 - Subjective Subjective: Seen and examined at the bedside earlier today, chart review. Patient diarrhea reported to be improving. Patient reported to have some odynophagia, being treated for oral thrush. Patient denies nausea, vomiting, or abdominal pain. Objective - Vital Signs/Intake and Output Vital Signs (last 24 hours): Temp Pulse Resp BP Pulse Ox 98 F 95 H 17 109/49 L 99 12/26/17 01:00 12/26/17 12:30 12/26/17 12:30 12/26/17 12:30 12/26/17 12:30 - Medications Medications: Current Medications Albuterol/Ipratropium (Duoneb 3 Mg/0.5 Mg (3 Ml) Ud) 3 ml IH [id number] PRN PRN Reason: Shortness of Breath Arformoterol Tartrate (Brovana) 15 mcg IH [id number] EMILIE Budesonide (Pulmicort Respules) 0.5 mg IH [id number] EMILIE Al Hydrox/Mg Hydrox/Simethicone 30 ml/Diphenhydramine HCl 75 mg/Lidocaine 30 ml 0 ml PO Q2H PRN PRN Reason: Mouth/Throat Pain Last Admin: 12/25/17 04:04 Dose: 30 ml Metronidazole (Flagyl) 500 mg in 100 mls @ 100 mls/hr IVPB Q8 EMILIE PRN Reason: Protocol Last Admin: 12/26/17 06:17 Dose: 100 mls/hr Dextrose/Sodium Chloride (Dextrose 5%/0.9% Ns 1000 Ml) 1,000 mls @ 100 mls/hr IV .Q10H EMILIE Last Admin: 12/26/17 10:34 Dose: 100 mls/hr Meropenem (Merrem Iv 1 Gm Premix) 50 mls @ 100 mls/hr IVPB Q8 EMILIE PRN Reason: Protocol Stop: 01/01/18 06:31 Last Admin: 12/26/17 06:17 Dose: 100 mls/hr Potassium Chloride (Potassium Chloride 20 Meq/100 Ml) 20 meq in 100 mls @ 50 mls/hr IVPB Q2H EMILIE Stop: 12/26/17 15:29 Last Admin: 12/26/17 12:24 Dose: 50 mls/hr Lidocaine HCl (Lidocaine 2% Viscous) 15 ml MM Q3H PRN PRN Reason: Other Last Admin: 12/26/17 09:06 Dose: 15 ml Nystatin (Nystatin Oral Susp) 5 ml PO QID [facility] Last Admin: 12/26/17 10:32 Dose: 5 ml Pantoprazole Sodium (Protonix Inj) 40 mg IVP DAILY [facility] Last Admin: 12/26/17 10:33 Dose: 40 mg Vancomycin HCl (Vancocin 25 Mg/Ml (Oral Use)) 125 mg PO QID EMILIE PRN Reason: Protocol Last Admin: 12/26/17 10:33 Dose: 125 mg - Labs Labs: 12/26/17 05:40 12/26/17 08:00 PT 24.8 SECONDS (9.4-12.5) H 12/26/17 09:00 INR 2.12 (0.93-1.08) H 12/26/17 09:00 APTT 30.5 Seconds (25.1-36.5) 12/26/17 09:00 - Constitutional Appears: No Acute Distress - Head Exam Head Exam: NORMOCEPHALIC - Eye Exam Eye Exam: Scleral icterus - ENT Exam ENT Exam: Mucous Membranes Moist - Respiratory Exam Respiratory Exam: NORMAL BREATHING PATTERN. absent: Respiratory Distress - Cardiovascular Exam Cardiovascular Exam: +S1, +S2 - GI/Abdominal Exam GI & Abdominal Exam: Soft, Normal Bowel Sounds. absent: Guarding, Tenderness, Rebound - Extremities Exam Extremities Exam: Pedal Edema. 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 Altman. <Lj Altman V - Last Filed: 12/27/17 00:21> Objective - Vital Signs/Intake and Output Vital Signs (last 24 hours): Temp Pulse Resp BP Pulse Ox 98.5 F 99 H 16 105/48 L 98 12/26/17 20:00 12/26/17 23:50 12/26/17 23:50 12/26/17 23:00 12/26/17 23:50 Intake and Output: 12/26/17 12/27/17 18:59 06:59 Intake Total 1750 Output Total 102 Balance 1648 - Medications Medications: Current Medications Albuterol/Ipratropium (Duoneb 3 Mg/0.5 Mg (3 Ml) Ud) 3 ml IH [id number] PRN PRN Reason: Shortness of Breath Arformoterol Tartrate (Brovana) 15 mcg IH [id number] EMILIE Budesonide (Pulmicort Respules) 0.5 mg IH [id number] [facility] Last Admin: 12/26/17 22:08 Dose: 0.5 mg Al Hydrox/Mg Hydrox/Simethicone 30 ml/Diphenhydramine HCl 75 mg/Lidocaine 30 ml 0 ml PO Q2H PRN PRN Reason: Mouth/Throat Pain Last Admin: 12/25/17 04:04 Dose: 30 ml Metronidazole (Flagyl) 500 mg in 100 mls @ 100 mls/hr IVPB Q8 EMILIE PRN Reason: Protocol Last Admin: 12/26/17 23:01 Dose: 100 mls/hr Dextrose/Sodium Chloride (Dextrose 5%/0.9% Ns 1000 Ml) 1,000 mls @ 100 mls/hr IV .Q10H [facility] Last Admin: 12/26/17 10:34 Dose: 100 mls/hr Meropenem (Merrem Iv 1 Gm Premix) 50 mls @ 100 mls/hr IVPB Q8 EMILIE PRN Reason: Protocol Stop: 01/01/18 06:31 Last Admin: 12/26/17 23:00 Dose: 100 mls/hr Lidocaine HCl (Lidocaine 2% Viscous) 15 ml MM Q3H PRN PRN Reason: Other Last Admin: 12/26/17 09:06 Dose: 15 ml Nystatin (Nystatin Oral Susp) 5 ml PO QID [facility] Last Admin: 12/26/17 23:00 Dose: 5 ml Pantoprazole Sodium (Protonix Inj) 40 mg IVP DAILY [facility] Last Admin: 12/26/17 10:33 Dose: 40 mg Vancomycin HCl (Vancocin 25 Mg/Ml (Oral Use)) 125 mg PO QID EMILIE PRN Reason: Protocol Last Admin: 12/26/17 23:02 Dose: 125 mg - Labs Labs: 12/26/17 05:40 12/26/17 17:00 PT 24.8 SECONDS (9.4-12.5) H 12/26/17 09:00 INR 2.12 (0.93-1.08) H 12/26/17 09:00 APTT 30.5 Seconds (25.1-36.5) 12/26/17 09:00 Attending/Attestation - Attestation I have personally seen and examined this patient.: Yes I have fully participated in the care of the patient.: Yes I have reviewed all pertinent clinical information, including history, physical exam and plan: Yes Notes (Text): This is an addendum to GI progress report dictated by Rima Lao APN.The patient was seen and examined earlier. Medical records, lab studies, imagings were reviewed. Last 24 hours events reviewed. Agreed with the above treatment plan as outlined in Rima Lao APN's notes with the addition of the following 12/27/17 00:20
[2017-12-26 13:53] LABS: VENOUS BLOOD GAS BASE EXCESS -5.7 mmol/L (0.0-2.0); VENOUS BLOOD GAS PO2 107 mm/Hg (30-55); VENOUS BLOOD PH 7.38 (7.32-7.43)
--- NOTE | 2017-12-26 14:37 | CP.PCM.PN ---
Subjective - Date & Time of Evaluation Date of Evaluation: 12/26/17 Time of Evaluation: 09:45 - Subjective Subjective: Still with abdominal cramping but a little better, loose stools are a little better, no fevers this morning. Objective - Vital Signs/Intake and Output Vital Signs (last 24 hours): Temp Pulse Resp BP Pulse Ox 98 F 101 H 23 101/49 L 99 12/26/17 01:00 12/26/17 07:50 12/26/17 07:50 12/26/17 07:30 12/26/17 07:50 - Medications Medications: Current Medications Albuterol/Ipratropium (Duoneb 3 Mg/0.5 Mg (3 Ml) Ud) 3 ml IH [id number] PRN PRN Reason: Shortness of Breath Arformoterol Tartrate (Brovana) 15 mcg IH [id number] EMILIE Budesonide (Pulmicort Respules) 0.5 mg IH [id number] EMILIE Al Hydrox/Mg Hydrox/Simethicone 30 ml/Diphenhydramine HCl 75 mg/Lidocaine 30 ml 0 ml PO Q2H PRN PRN Reason: Mouth/Throat Pain Last Admin: 12/25/17 04:04 Dose: 30 ml Metronidazole (Flagyl) 500 mg in 100 mls @ 100 mls/hr IVPB Q8 EMILIE PRN Reason: Protocol Last Admin: 12/26/17 06:17 Dose: 100 mls/hr Dextrose/Sodium Chloride (Dextrose 5%/0.9% Ns 1000 Ml) 1,000 mls @ 100 mls/hr IV .Q10H [facility] Last Admin: 12/25/17 22:31 Dose: 100 mls/hr Meropenem (Merrem Iv 1 Gm Premix) 50 mls @ 100 mls/hr IVPB Q8 EMILIE PRN Reason: Protocol Stop: 01/01/18 06:31 Last Admin: 12/26/17 06:17 Dose: 100 mls/hr Lidocaine HCl (Lidocaine 2% Viscous) 15 ml MM Q3H PRN PRN Reason: Other Last Admin: 12/26/17 09:06 Dose: 15 ml Nystatin (Nystatin Oral Susp) 5 ml PO QID [facility] Last Admin: 12/25/17 22:28 Dose: 5 ml Pantoprazole Sodium (Protonix Inj) 40 mg IVP DAILY [facility] Last Admin: 12/25/17 12:54 Dose: 40 mg Vancomycin HCl (Vancocin 25 Mg/Ml (Oral Use)) 125 mg PO QID EMILIE PRN Reason: Protocol Last Admin: 12/25/17 22:30 Dose: 125 mg - Labs Labs: 12/26/17 05:40 12/26/17 08:00 PT 24.8 SECONDS (9.4-12.5) H 12/26/17 09:00 INR 2.12 (0.93-1.08) H 12/26/17 09:00 APTT 30.5 Seconds (25.1-36.5) 12/26/17 09:00 - Constitutional Appears: Chronically Ill - Head Exam Head Exam: NORMAL INSPECTION - ENT Exam ENT Exam: Mucous Membranes Moist - Neck Exam Neck Exam: absent: Lymphadenopathy, Meningismus - Respiratory Exam Respiratory Exam: Decreased Breath Sounds - Cardiovascular Exam Cardiovascular Exam: +S1, +S2 - GI/Abdominal Exam GI & Abdominal Exam: Soft. absent: Tenderness Assessment and Plan - Assessment and Plan (Free Text) Plan: Assessment Severe Sepsis with febrile neutropenia, due to pancolitis history of sepsis from biliary tree as the source in a patient with primary sclerosing cholangitis with liver cirrhosis S/P ERCP and biliary stent placement - S/P biopsy of the enlarged lymph nodes adjacent to the common bile duct cholangiocarcinoma on chemotherapy S/P cholecystectomy Ulcerative colitis history of MSSA sinusitis COPD allergic rhinitis giant cell arteritis Plan will d/c IV Vancomycin since blood cx are negative, will continue Merrem day 2 pending stool cx, stool for C. diff and continue PO Vancomycin and IV Flagyl day 2 will continue monitor clinically overall prognosis is poor discussed with Dr. Altman previously
--- NOTE | 2017-12-26 15:11 | CP.PCM.PN ---
Subjective - Date & Time of Evaluation Date of Evaluation: 12/26/17 Time of Evaluation: 10:00 - Subjective Subjective: Alert, oriented, denies pain. no acute overnights Objective - Vital Signs/Intake and Output Vital Signs (last 24 hours): Temp Pulse Resp BP Pulse Ox 98 F 99 H 22 114/55 L 98 12/26/17 01:00 12/26/17 14:29 12/26/17 14:29 12/26/17 14:31 12/26/17 14:29 - Medications Medications: Current Medications Albuterol/Ipratropium (Duoneb 3 Mg/0.5 Mg (3 Ml) Ud) 3 ml IH [id number] PRN PRN Reason: Shortness of Breath Arformoterol Tartrate (Brovana) 15 mcg IH [id number] EMILIE Budesonide (Pulmicort Respules) 0.5 mg IH [id number] EMILIE Al Hydrox/Mg Hydrox/Simethicone 30 ml/Diphenhydramine HCl 75 mg/Lidocaine 30 ml 0 ml PO Q2H PRN PRN Reason: Mouth/Throat Pain Last Admin: 12/25/17 04:04 Dose: 30 ml Metronidazole (Flagyl) 500 mg in 100 mls @ 100 mls/hr IVPB Q8 EMILIE PRN Reason: Protocol Last Admin: 12/26/17 14:12 Dose: 100 mls/hr Dextrose/Sodium Chloride (Dextrose 5%/0.9% Ns 1000 Ml) 1,000 mls @ 100 mls/hr IV .Q10H EMILIE Last Admin: 12/26/17 10:34 Dose: 100 mls/hr Meropenem (Merrem Iv 1 Gm Premix) 50 mls @ 100 mls/hr IVPB Q8 EMILIE PRN Reason: Protocol Stop: 01/01/18 06:31 Last Admin: 12/26/17 14:13 Dose: 100 mls/hr Potassium Chloride (Potassium Chloride 20 Meq/100 Ml) 20 meq in 100 mls @ 50 mls/hr IVPB Q2H EMILIE Stop: 12/26/17 15:29 Last Admin: 12/26/17 12:24 Dose: 50 mls/hr Lidocaine HCl (Lidocaine 2% Viscous) 15 ml MM Q3H PRN PRN Reason: Other Last Admin: 12/26/17 09:06 Dose: 15 ml Nystatin (Nystatin Oral Susp) 5 ml PO QID [facility] Last Admin: 12/26/17 14:15 Dose: 5 ml Pantoprazole Sodium (Protonix Inj) 40 mg IVP DAILY [facility] Last Admin: 12/26/17 10:33 Dose: 40 mg Vancomycin HCl (Vancocin 25 Mg/Ml (Oral Use)) 125 mg PO QID [facility] PRN Reason: Protocol Last Admin: 12/26/17 14:09 Dose: 125 mg - Labs Labs: 12/26/17 05:40 12/26/17 08:00 PT 24.8 SECONDS (9.4-12.5) H 12/26/17 09:00 INR 2.12 (0.93-1.08) H 12/26/17 09:00 APTT 30.5 Seconds (25.1-36.5) 12/26/17 09:00 - Constitutional Appears: Chronically Ill - Head Exam Head Exam: NORMOCEPHALIC - Eye Exam Eye Exam: PERRL, Scleral icterus - ENT Exam ENT Exam: Mucous Membranes Moist Additional comments: sores on insides of lips - Neck Exam Neck Exam: Normal Inspection - Respiratory Exam Respiratory Exam: Decreased Breath Sounds, NORMAL BREATHING PATTERN - Cardiovascular Exam Cardiovascular Exam: REGULAR RHYTHM, +S1, +S2 - GI/Abdominal Exam GI & Abdominal Exam: Distended, Soft, Normal Bowel Sounds - Extremities Exam Extremities Exam: Normal Inspection - Back Exam Additional comments: lumbar tenderness - Skin Skin Exam: Dry Additional comments: jaundice Assessment and Plan - Assessment and Plan (Free Text) Assessment: 72 year old female with history of metastatic cholangiocarcinoma who is admitted with pancytopenia, colitis, sepsis The patient is alert and oriented. She understands that she has advanced cancer. She states that she doesn't want to continue chemotherapy treatment. Advance care planning discussion ensued. Benefits and burdens of CPR/intubation discussed. Questions answered. The patient does not want to be intubated or have CPR to prolong life. POLST: DNR/DNI directive completed> Her daughter Caridad Kenyon is named as health care surrogate. A copy is placed in the chart. Time spent in goals of care and advance care planning, 30 minutes Plan: Advance care planning POLST: DNR/DNI
[2017-12-26 17:33] LABS: ALB/GLOB RATIO 0.6 (1.1-1.8); ALT/SGPT 39 U/L (7-56); AST/SGOT 44 U/L (14-36); BLOOD UREA NITROGEN 11 mg/dL (7-21); CALCIUM 7.8 mg/dL (8.4-10.5); GFR AFRICAN-AMERICAN > 60; GFR NON-AFRICAN AMERICAN > 60
[2017-12-26] MEDS ORDERED: Arformoterol 15 mcg/2 ml Inh Sol IH SCH (20:00)
[2017-12-26] MEDS: Budesonide 0.5 mg/2 ml Inhal Susp UD IH SCH (22:08)
[2017-12-27] MEDS: Dextrose 5%/0.9% NS 1,000 ML IV SCH ×2 (02:02→12:51)
[2017-12-27] MEDS: metroNIDAZOLE IV 500 mg/100 ml 500 MG/100 ML BAG IVPB SCH ×3 (05:45→22:57)
[2017-12-27] MEDS: Meropenem IV 1 gm in NS 50 ML IVPB SCH ×3 (05:46→22:38)
[2017-12-27 05:48] LABS: HEMOGLOBIN 8.7 g/dL (12.0-16.0); MEAN CELL VOLUME 93.2 fl (80.0-105.0); MEAN CORPUSCULAR HEMOGLOBIN 31.3 pg (25.0-35.0); MEAN CORPUSCULAR HGB CONC 33.6 g/dl (31.0-37.0); PLATELET COUNT 96 10^3/uL (120.0-450.0); RBC 2.78 10^6/uL (3.5-6.1); RED CELL DISTRIBUTION WIDTH 20.1 % (11.5-14.5); WHITE BLOOD COUNT 17.7 10^3/ul (4.5-11.0)
[2017-12-27 06:25] LABS: ALB/GLOB RATIO 0.6 (1.1-1.8); ALBUMIN 1.9 g/dL (3.0-4.8); ALT/SGPT 40 U/L (7-56); AST/SGOT 61 U/L (14-36); BLOOD UREA NITROGEN 10 mg/dL (7-21); GFR AFRICAN-AMERICAN > 60; GFR NON-AFRICAN AMERICAN > 60
[2017-12-27] MEDS: Albuterol-Ipratrop 3 mg / 0.5 (3 ml) UD IH PRN ×2 (07:26→21:05)
[2017-12-27] MEDS: Budesonide 0.5 mg/2 ml Inhal Susp UD IH SCH ×2 (07:26→21:05)
[2017-12-27] MEDS: Nystatin 100,000 Units/ml Oral Susp 5 ml UD PO SCH ×4 (09:21→22:38)
[2017-12-27] MEDS: Vancomycin 25 MG/ML PO SCH ×4 (10:13→22:47)
--- NOTE | 2017-12-27 11:36 | CP.PCM.PN ---
Subjective - Date & Time of Evaluation Date of Evaluation: 12/27/17 Time of Evaluation: 10:45 - Subjective Subjective: resting comfortably, NAD, Objective - Vital Signs/Intake and Output Vital Signs (last 24 hours): Temp Pulse Resp BP Pulse Ox 98.5 F 98 H 14 105/49 L 96 12/26/17 20:00 12/27/17 06:00 12/27/17 05:20 12/27/17 05:00 12/27/17 05:20 Intake and Output: 12/27/17 12/27/17 06:59 18:59 Intake Total 1750 Output Total 102 Balance 1648 - Medications Medications: Current Medications Albuterol/Ipratropium (Duoneb 3 Mg/0.5 Mg (3 Ml) Ud) 3 ml IH [id number] PRN PRN Reason: Shortness of Breath Last Admin: 12/27/17 07:26 Dose: 3 ml Arformoterol Tartrate (Brovana) 15 mcg IH [id number] EMILIE Budesonide (Pulmicort Respules) 0.5 mg IH [id number] EMILIE Last Admin: 12/27/17 07:26 Dose: 0.5 mg Al Hydrox/Mg Hydrox/Simethicone 30 ml/Diphenhydramine HCl 75 mg/Lidocaine 30 ml 0 ml PO Q2H PRN PRN Reason: Mouth/Throat Pain Last Admin: 12/25/17 04:04 Dose: 30 ml Metronidazole (Flagyl) 500 mg in 100 mls @ 100 mls/hr IVPB Q8 EMILIE PRN Reason: Protocol Last Admin: 12/27/17 05:45 Dose: 100 mls/hr Dextrose/Sodium Chloride (Dextrose 5%/0.9% Ns 1000 Ml) 1,000 mls @ 100 mls/hr IV .Q10H EMILIE Last Admin: 12/27/17 02:02 Dose: 100 mls/hr Meropenem (Merrem Iv 1 Gm Premix) 50 mls @ 100 mls/hr IVPB Q8 EMILIE PRN Reason: Protocol Stop: 01/01/18 06:31 Last Admin: 12/27/17 05:46 Dose: 100 mls/hr Potassium Phosphate 15 mmole/ (Sodium Chloride) 255 mls @ 42.5 mls/hr IVPB DAILY EMILIE Lidocaine HCl (Lidocaine 2% Viscous) 15 ml MM Q3H PRN PRN Reason: Other Last Admin: 12/26/17 09:06 Dose: 15 ml Magnesium Oxide (Mag-Ox) 400 mg PO DAILY [facility] Nystatin (Nystatin Oral Susp) 5 ml PO QID [facility] Last Admin: 12/27/17 09:21 Dose: Not Given Pantoprazole Sodium (Protonix Inj) 40 mg IVP DAILY [facility] Last Admin: 12/27/17 09:09 Dose: 40 mg Vancomycin HCl (Vancocin 25 Mg/Ml (Oral Use)) 125 mg PO QID EMILIE PRN Reason: Protocol Last Admin: 12/27/17 10:13 Dose: 125 mg - Labs Labs: 12/27/17 05:30 12/27/17 05:30 PT 24.8 SECONDS (9.4-12.5) H 12/26/17 09:00 INR 2.12 (0.93-1.08) H 12/26/17 09:00 APTT 30.5 Seconds (25.1-36.5) 12/26/17 09:00 - Respiratory Exam Respiratory Exam: Clear to Ausculation Bilateral, NORMAL BREATHING PATTERN - Cardiovascular Exam Cardiovascular Exam: REGULAR RHYTHM - GI/Abdominal Exam GI & Abdominal Exam: Soft, Normal Bowel Sounds - Neurological Exam Neurological Exam: Alert, Awake - Skin Skin Exam: Dry, Warm Assessment and Plan (1) Cholangiocarcinoma Status: Acute (2) Neutropenic fever Status: Acute (3) Abdominal pain Status: Acute (4) Hypokalemia Status: Acute - Assessment and Plan (Free Text) Plan: continue present rx, IV Abx, potassium supplement, monitor lytes, on PO Vanco for Cdiff
[2017-12-27] MEDS: Magnesium Oxide 400 mg Tab UD PO SCH (12:51)
--- NOTE | 2017-12-27 14:19 | CP.PCM.PN ---
Subjective - Date & Time of Evaluation Date of Evaluation: 12/27/17 Time of Evaluation: 10:30 - Subjective Subjective: No fevers, not in distress, diarrhea is slowly improving, no abdominal pain. Still feels weak. Objective - Vital Signs/Intake and Output Vital Signs (last 24 hours): Temp Pulse Resp BP Pulse Ox 98.5 F 98 H 14 105/49 L 96 12/26/17 20:00 12/27/17 06:00 12/27/17 05:20 12/27/17 05:00 12/27/17 05:20 Intake and Output: 12/27/17 12/27/17 06:59 18:59 Intake Total 1750 Output Total 102 Balance 1648 - Medications Medications: Current Medications Albuterol/Ipratropium (Duoneb 3 Mg/0.5 Mg (3 Ml) Ud) 3 ml IH [id number] PRN PRN Reason: Shortness of Breath Last Admin: 12/27/17 07:26 Dose: 3 ml Arformoterol Tartrate (Brovana) 15 mcg IH [id number] EMILIE Budesonide (Pulmicort Respules) 0.5 mg IH [id number] EMILIE Last Admin: 12/27/17 07:26 Dose: 0.5 mg Al Hydrox/Mg Hydrox/Simethicone 30 ml/Diphenhydramine HCl 75 mg/Lidocaine 30 ml 0 ml PO Q2H PRN PRN Reason: Mouth/Throat Pain Last Admin: 12/25/17 04:04 Dose: 30 ml Metronidazole (Flagyl) 500 mg in 100 mls @ 100 mls/hr IVPB Q8 EMILIE PRN Reason: Protocol Last Admin: 12/27/17 05:45 Dose: 100 mls/hr Dextrose/Sodium Chloride (Dextrose 5%/0.9% Ns 1000 Ml) 1,000 mls @ 100 mls/hr IV .Q10H EMILIE Last Admin: 12/27/17 02:02 Dose: 100 mls/hr Meropenem (Merrem Iv 1 Gm Premix) 50 mls @ 100 mls/hr IVPB Q8 EMILIE PRN Reason: Protocol Stop: 01/01/18 06:31 Last Admin: 12/27/17 05:46 Dose: 100 mls/hr Potassium Phosphate 15 mmole/ (Sodium Chloride) 255 mls @ 42.5 mls/hr IVPB DAILY EMILIE Lidocaine HCl (Lidocaine 2% Viscous) 15 ml MM Q3H PRN PRN Reason: Other Last Admin: 12/26/17 09:06 Dose: 15 ml Magnesium Oxide (Mag-Ox) 400 mg PO DAILY [facility] Nystatin (Nystatin Oral Susp) 5 ml PO QID EMILIE Last Admin: 12/27/17 09:21 Dose: Not Given Pantoprazole Sodium (Protonix Inj) 40 mg IVP DAILY [facility] Last Admin: 12/27/17 09:09 Dose: 40 mg Vancomycin HCl (Vancocin 25 Mg/Ml (Oral Use)) 125 mg PO QID EMILIE PRN Reason: Protocol Last Admin: 12/27/17 10:13 Dose: 125 mg - Labs Labs: 12/27/17 05:30 12/27/17 05:30 PT 24.8 SECONDS (9.4-12.5) H 12/26/17 09:00 INR 2.12 (0.93-1.08) H 12/26/17 09:00 APTT 30.5 Seconds (25.1-36.5) 12/26/17 09:00 - Constitutional Appears: Cachectic, Chronically Ill - Head Exam Head Exam: NORMAL INSPECTION - ENT Exam ENT Exam: Mucous Membranes Moist - Neck Exam Neck Exam: absent: Meningismus - Respiratory Exam Respiratory Exam: Decreased Breath Sounds Additional comments: right anterior chest wall port in place - Cardiovascular Exam Cardiovascular Exam: +S1, +S2 - GI/Abdominal Exam GI & Abdominal Exam: Soft. absent: Tenderness Assessment and Plan - Assessment and Plan (Free Text) Plan: Assessment Severe Sepsis with febrile neutropenia, due to pancolitis, with c. diff. 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 diff is positive and will continue PO Vancomycin and IV Flagyl day 3 to complete 10-14 days will continue monitor clinically overall prognosis is poor discussed with Dr. Altman previously
[2017-12-27] MEDS ORDERED: Potassium Phosphate 15 MMOLE in Sodium Chloride 0.9% 250 ML IVPB STA (16:04)
[2017-12-28] MEDS: Dextrose 5%/0.9% NS 1,000 ML IV SCH ×2 (05:25→05:32)
[2017-12-28] MEDS: Meropenem IV 1 gm in NS 50 ML IVPB SCH ×3 (05:34→21:27)
[2017-12-28] MEDS: metroNIDAZOLE IV 500 mg/100 ml 500 MG/100 ML BAG IVPB SCH ×3 (05:35→21:28)
[2017-12-28 06:02] LABS: BASO # 0.45 K/mm3 (0.0-2.0); BASO % 1.1 % (0.0-3.0); HEMOGLOBIN 8.6 g/dL (12.0-16.0); MEAN CELL VOLUME 93.6 fl (80.0-105.0); MEAN CORPUSCULAR HEMOGLOBIN 30.6 pg (25.0-35.0); MEAN CORPUSCULAR HGB CONC 32.7 g/dl (31.0-37.0); MEAN PLATELET VOLUME 10.5 fl (7.0-11.0); MONO # 1.6 (0.1-0.6); PLATELET COUNT 118 10^3/uL (120.0-450.0); RBC 2.81 10^6/uL (3.5-6.1); RED CELL DISTRIBUTION WIDTH 20.5 % (11.5-14.5)
[2017-12-28 06:23] LABS: WHITE BLOOD COUNT 40.1 10^3/ul (4.5-11.0)
[2017-12-28] MEDS ORDERED: Potassium Phosphate 3 mmol/ml Inj IV NR (07:30)
[2017-12-28] MEDS: Budesonide 0.5 mg/2 ml Inhal Susp UD IH SCH ×2 (07:59→20:41)
[2017-12-28] MEDS: Arformoterol 15 mcg/2 ml Inh Sol IH SCH (08:01)
[2017-12-28 08:48] LABS: ALB/GLOB RATIO 0.6 (1.1-1.8); ALBUMIN 1.8 g/dL (3.0-4.8); ALT/SGPT 50 U/L (7-56); AST/SGOT 88 U/L (14-36); BLOOD UREA NITROGEN 11 mg/dL (7-21); CALCIUM 8.2 mg/dL (8.4-10.5); GFR AFRICAN-AMERICAN > 60; GFR NON-AFRICAN AMERICAN > 60
[2017-12-28 08:52] LABS: ANISOCYTOSIS SLIGHT; BAND 3 % (0-2); LYMPHOCYTE 19 % (22.0-35.0); METAMYELOCYTE 6 %; MONOCYTE 2 % (1.0-6.0); MYELOCYTE 2 %; NEUTROPHIL 68 % (50.0-70.0); NUCLEATED RED BLOOD CELL 1 %; TEAR DROP CELLS SLIGHT
[2017-12-28] MEDS: Magnesium Oxide 400 mg Tab UD PO SCH (09:42)
[2017-12-28] MEDS: Nystatin 100,000 Units/ml Oral Susp 5 ml UD PO SCH ×5 (09:43→21:05)
[2017-12-28] MEDS: Potassium Phosphate 15 MMOLE in Sodium Chloride 0.9% 250 ML IVPB SCH (09:48)
[2017-12-28] MEDS: Vancomycin 25 MG/ML PO SCH ×4 (09:49→23:00)
[2017-12-28] MEDS ORDERED: Potassium Phosphate 3 mmol/ml Inj IV SCH (10:00)
[2017-12-28] MEDS ORDERED: Potassium Phosphate 15 MMOLE in Sodium Chloride 0.9% 250 ML IVPB SCH (10:00)
--- NOTE | 2017-12-28 11:41 | CP.PCM.PN ---
Subjective - Date & Time of Evaluation Date of Evaluation: 12/28/17 Time of Evaluation: 11:15 - Subjective Subjective: NAD, diarrhea improved, less oral discomfort Objective - Vital Signs/Intake and Output Vital Signs (last 24 hours): Temp Pulse Resp BP Pulse Ox 97.8 F 102 H 14 100/43 L 100 12/28/17 04:00 12/28/17 10:00 12/28/17 06:00 12/28/17 04:00 12/28/17 06:00 Intake and Output: 12/28/17 12/28/17 06:59 18:59 Intake Total 1560 Output Total 1200 Balance 360 - Medications Medications: Current Medications Albuterol/Ipratropium (Duoneb 3 Mg/0.5 Mg (3 Ml) Ud) 3 ml IH [id number] PRN PRN Reason: Shortness of Breath Last Admin: 12/27/17 21:05 Dose: 3 ml Arformoterol Tartrate (Brovana) 15 mcg IH [id number] EMILIE Last Admin: 12/28/17 08:01 Dose: Not Given Budesonide (Pulmicort Respules) 0.5 mg IH [id number] EMILIE Last Admin: 12/28/17 07:59 Dose: Not Given Al Hydrox/Mg Hydrox/Simethicone 30 ml/Diphenhydramine HCl 75 mg/Lidocaine 30 ml 0 ml PO Q2H PRN PRN Reason: Mouth/Throat Pain Last Admin: 12/25/17 04:04 Dose: 30 ml Metronidazole (Flagyl) 500 mg in 100 mls @ 100 mls/hr IVPB Q8 EMILIE PRN Reason: Protocol Last Admin: 12/28/17 05:35 Dose: 100 mls/hr Dextrose/Sodium Chloride (Dextrose 5%/0.9% Ns 1000 Ml) 1,000 mls @ 100 mls/hr IV .Q10H EMILIE Last Admin: 12/28/17 05:32 Dose: 100 mls/hr Meropenem (Merrem Iv 1 Gm Premix) 50 mls @ 100 mls/hr IVPB Q8 EMILIE PRN Reason: Protocol Stop: 01/01/18 06:31 Last Admin: 12/28/17 05:34 Dose: 100 mls/hr Potassium Phosphate 15 mmole/ (Sodium Chloride) 255 mls @ 42.5 mls/hr IVPB DAILY EMILIE Last Admin: 12/28/17 09:48 Dose: 42.5 mls/hr Lidocaine HCl (Lidocaine 2% Viscous) 15 ml MM Q3H PRN PRN Reason: Other Last Admin: 12/26/17 09:06 Dose: 15 ml Magnesium Oxide (Mag-Ox) 400 mg PO DAILY [facility] Last Admin: 12/28/17 09:42 Dose: 400 mg Nystatin (Nystatin Oral Susp) 5 ml PO QID [facility] Last Admin: 12/28/17 10:48 Dose: Not Given Pantoprazole Sodium (Protonix Inj) 40 mg IVP DAILY [facility] Last Admin: 12/28/17 09:42 Dose: 40 mg Vancomycin HCl (Vancocin 25 Mg/Ml (Oral Use)) 125 mg PO QID [facility] PRN Reason: Protocol Last Admin: 12/28/17 09:49 Dose: 125 mg - Labs Labs: 12/28/17 05:30 12/28/17 06:30 PT 24.8 SECONDS (9.4-12.5) H 12/26/17 09:00 INR 2.12 (0.93-1.08) H 12/26/17 09:00 APTT 30.5 Seconds (25.1-36.5) 12/26/17 09:00 - Respiratory Exam Respiratory Exam: Clear to Ausculation Bilateral, NORMAL BREATHING PATTERN - Cardiovascular Exam Cardiovascular Exam: REGULAR RHYTHM - GI/Abdominal Exam GI & Abdominal Exam: Soft, Normal Bowel Sounds - Extremities Exam Extremities Exam: Pedal Edema - Neurological Exam Neurological Exam: Alert, Awake - Skin Skin Exam: Dry, Warm Assessment and Plan (1) Cholangiocarcinoma Status: Acute (2) Neutropenic fever Status: Acute (3) Abdominal pain Status: Acute (4) Hypokalemia Status: Acute (5) Clostridium difficile colitis Status: Acute - Assessment and Plan (Free Text) Plan: continue IV Abx, d/c neupogen due to leukocytosis, vanco PO, GI follow-up on liquid diet at present
--- NOTE | 2017-12-28 12:29 | CP.PCM.PN ---
Subjective - Date & Time of Evaluation Date of Evaluation: 12/28/17 Time of Evaluation: 09:05 - Subjective Subjective: No fevers, not in distress, no diarrhea currently but still with abdominal discomfort. Objective - Vital Signs/Intake and Output Vital Signs (last 24 hours): Temp Pulse Resp BP Pulse Ox 97.8 F 104 H 14 100/43 L 100 12/28/17 04:00 12/28/17 06:00 12/28/17 06:00 12/28/17 04:00 12/28/17 06:00 - Medications Medications: Current Medications Albuterol/Ipratropium (Duoneb 3 Mg/0.5 Mg (3 Ml) Ud) 3 ml IH [id number] PRN PRN Reason: Shortness of Breath Last Admin: 12/27/17 21:05 Dose: 3 ml Arformoterol Tartrate (Brovana) 15 mcg IH [id number] EMILIE Budesonide (Pulmicort Respules) 0.5 mg IH [id number] EMILIE Last Admin: 12/27/17 21:05 Dose: 0.5 mg Al Hydrox/Mg Hydrox/Simethicone 30 ml/Diphenhydramine HCl 75 mg/Lidocaine 30 ml 0 ml PO Q2H PRN PRN Reason: Mouth/Throat Pain Last Admin: 12/25/17 04:04 Dose: 30 ml Metronidazole (Flagyl) 500 mg in 100 mls @ 100 mls/hr IVPB Q8 EMILIE PRN Reason: Protocol Last Admin: 12/28/17 05:35 Dose: 100 mls/hr Dextrose/Sodium Chloride (Dextrose 5%/0.9% Ns 1000 Ml) 1,000 mls @ 100 mls/hr IV .Q10H [facility] Last Admin: 12/28/17 05:32 Dose: 100 mls/hr Meropenem (Merrem Iv 1 Gm Premix) 50 mls @ 100 mls/hr IVPB Q8 EMILIE PRN Reason: Protocol Stop: 01/01/18 06:31 Last Admin: 12/28/17 05:34 Dose: 100 mls/hr Potassium Phosphate 15 mmole/ (Sodium Chloride) 255 mls @ 42.5 mls/hr IVPB DAILY EMILIE Lidocaine HCl (Lidocaine 2% Viscous) 15 ml MM Q3H PRN PRN Reason: Other Last Admin: 12/26/17 09:06 Dose: 15 ml Magnesium Oxide (Mag-Ox) 400 mg PO DAILY [facility] Last Admin: 12/27/17 12:51 Dose: 400 mg Nystatin (Nystatin Oral Susp) 5 ml PO QID [facility] Last Admin: 12/27/17 22:38 Dose: 5 ml Pantoprazole Sodium (Protonix Inj) 40 mg IVP DAILY [facility] Last Admin: 12/27/17 09:09 Dose: 40 mg Vancomycin HCl (Vancocin 25 Mg/Ml (Oral Use)) 125 mg PO QID [facility] PRN Reason: Protocol Last Admin: 12/27/17 22:47 Dose: 125 mg - Labs Labs: 12/28/17 05:30 12/27/17 05:30 PT 24.8 SECONDS (9.4-12.5) H 12/26/17 09:00 INR 2.12 (0.93-1.08) H 12/26/17 09:00 APTT 30.5 Seconds (25.1-36.5) 12/26/17 09:00 - Constitutional Appears: Cachectic, Chronically Ill - Head Exam Head Exam: NORMAL INSPECTION - ENT Exam ENT Exam: Mucous Membranes Moist - Neck Exam Neck Exam: absent: Meningismus - Respiratory Exam Respiratory Exam: Decreased Breath Sounds Additional comments: right anterior chest wall port in place - Cardiovascular Exam Cardiovascular Exam: +S1, +S2 - GI/Abdominal Exam GI & Abdominal Exam: Soft. absent: Tenderness Assessment and Plan - Assessment and Plan (Free Text) Plan: Assessment Severe Sepsis with febrile neutropenia, due to pancolitis, with c. diff. 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 diff is positive and will continue PO Vancomycin and IV Flagyl day 4 to complete 10-14 days will continue monitor clinically overall prognosis is poor discussed with Dr. Altman previously
--- NOTE | 2017-12-28 22:40 | PN ---
DATE: 12/28/2017 SUBJECTIVE: This patient was seen and evaluated earlier today. The patient's family was at bedside. The patient had a solid bowel movements now. Abdomen still complains of some bloating, on clear liquid diet. PHYSICAL EXAMINATION: VITAL SIGNS: Temperature is 97, pulse 104, blood pressure is 100/43. HEENT: Atraumatic, jaundiced. NECK: Supple. HEART: S1, S2 heard. LUNGS: Reduced air entry at the bases. ABDOMEN: Softly distended. Bowel sounds present. EXTREMITIES: Edema present. LABORATORY DATA: Hemoglobin 8.6, hematocrit 26.3, WBC 40.1, platelets 118. Chemistry shows total bilirubin has come down to 3.9, alk phos is 254. AST 80, ALT 50. INR on 12/26 was 2.2. IMPRESSION: This 72-year-old patient with metastatic cholangiocarcinoma status post chemo admitted with sepsis, pancolitis with the elevated LFTs. The patient is clinically appears to be improving. The significant thickening of the colon noticed especially in the right colon. The patient's diet yesterday has been changed to clear liquid diet. Leukocytosis, WBC count is 40.1. The patient was on Granix which was discontinued today. The patient was admitted with pancytopenia even the platelet count is showing improvement probably secondary to the chemo. Abnormal liver function tests. The patient had cholangiocarcinoma with stricture status post metal stent placement. At this time the LFTs significantly elevated total bilirubin could be secondary to the chemo-induced. It is also showing a downward trend. We will continue to closely followup sepsis. Continue the antibiotics as per ID. Clostridium difficile colitis, the patient is being on antigen positive. The patient is being on p.o. vancomycin. We will continue that. Other comorbidities included history of ulcerative colitis, history of methicillin-sensitive Staphylococcus aureus, sinusitis, chronic obstructive pulmonary disease. We will slowly advance the diet based on the clinical course. We will check the INR in a.m. and repeat the follow up of the LFTs and discussed with also the patient's daughter who was at bedside. Thank you very much for allowing us to participate in the care of the patient. Lj Altman MD
[2017-12-29] MEDS: metroNIDAZOLE IV 500 mg/100 ml 500 MG/100 ML BAG IVPB SCH ×3 (05:40→21:54)
[2017-12-29] MEDS: Meropenem IV 1 gm in NS 50 ML IVPB SCH (05:42)
[2017-12-29 05:55] LABS: HEMOGLOBIN 8.9 g/dL (12.0-16.0); MEAN CELL VOLUME 94.9 fl (80.0-105.0); MEAN CORPUSCULAR HEMOGLOBIN 30.5 pg (25.0-35.0); MEAN CORPUSCULAR HGB CONC 32.1 g/dl (31.0-37.0); MEAN PLATELET VOLUME 11.1 fl (7.0-11.0); PLATELET COUNT 145 10^3/uL (120.0-450.0); RBC 2.92 10^6/uL (3.5-6.1); RED CELL DISTRIBUTION WIDTH 21.3 % (11.5-14.5)
[2017-12-29 06:15] LABS: WHITE BLOOD COUNT 50.6 10^3/ul (4.5-11.0)
[2017-12-29 06:44] LABS: INR 1.85 (0.93-1.08); PROTHROMBIN TIME 21.5 SECONDS (9.4-12.5)
--- NOTE | 2017-12-29 06:48 | CP.PCM.PN ---
<Zoe Zazueta - Last Filed: 12/29/17 11:06> Subjective - Date & Time of Evaluation Date of Evaluation: 12/29/17 Time of Evaluation: 07:00 - Subjective Subjective: GI Progress Note for Dom Richey PGY2 Patient seen and examined at bedside. There were no acute overnight events as per nursing staff. Patient reports feeling bloated and still has RLQ abdominal pain. She denies having any diarrhea, nausea/vomiting, chest pain, shortness of breath, fever or chills, dysuria or hematuria. Objective - Vital Signs/Intake and Output Vital Signs (last 24 hours): Temp Pulse Resp BP Pulse Ox 97.2 F L 94 H 14 104/60 100 12/29/17 04:00 12/29/17 06:00 12/29/17 06:00 12/29/17 04:00 12/29/17 06:00 Intake and Output: 12/28/17 12/29/17 18:59 06:59 Intake Total 1330 1480 Output Total 520 400 Balance 810 1080 - Medications Medications: Current Medications Albuterol/Ipratropium (Duoneb 3 Mg/0.5 Mg (3 Ml) Ud) 3 ml IH [id number] PRN PRN Reason: Shortness of Breath Last Admin: 12/27/17 21:05 Dose: 3 ml Arformoterol Tartrate (Brovana) 15 mcg IH [id number] EMILIE Last Admin: 12/28/17 08:01 Dose: Not Given Budesonide (Pulmicort Respules) 0.5 mg IH [id number] EMILIE Last Admin: 12/28/17 20:41 Dose: 0.5 mg Al Hydrox/Mg Hydrox/Simethicone 30 ml/Diphenhydramine HCl 75 mg/Lidocaine 30 ml 0 ml PO Q2H PRN PRN Reason: Mouth/Throat Pain Last Admin: 12/25/17 04:04 Dose: 30 ml Metronidazole (Flagyl) 500 mg in 100 mls @ 100 mls/hr IVPB Q8 EMILIE PRN Reason: Protocol Last Admin: 12/29/17 05:40 Dose: 100 mls/hr Dextrose/Sodium Chloride (Dextrose 5%/0.9% Ns 1000 Ml) 1,000 mls @ 100 mls/hr IV .Q10H EMILIE Last Admin: 12/28/17 05:32 Dose: 100 mls/hr Meropenem (Merrem Iv 1 Gm Premix) 50 mls @ 100 mls/hr IVPB Q8 EMILIE PRN Reason: Protocol Stop: 01/01/18 06:31 Last Admin: 12/29/17 05:42 Dose: 100 mls/hr Potassium Phosphate 15 mmole/ (Sodium Chloride) 255 mls @ 42.5 mls/hr IVPB DAILY [facility] Last Admin: 12/28/17 09:48 Dose: 42.5 mls/hr Lidocaine HCl (Lidocaine 2% Viscous) 15 ml MM Q3H PRN PRN Reason: Other Last Admin: 12/26/17 09:06 Dose: 15 ml Magnesium Oxide (Mag-Ox) 400 mg PO DAILY [facility] Last Admin: 12/28/17 09:42 Dose: 400 mg Nystatin (Nystatin Oral Susp) 5 ml PO QID [facility] Last Admin: 12/28/17 21:05 Dose: Not Given Pantoprazole Sodium (Protonix Inj) 40 mg IVP DAILY [facility] Last Admin: 12/28/17 09:42 Dose: 40 mg Ursodiol (Actigall) 300 mg PO BID [facility] Last Admin: 12/28/17 18:07 Dose: 300 mg Vancomycin HCl (Vancocin 25 Mg/Ml (Oral Use)) 125 mg PO QID [facility] PRN Reason: Protocol Last Admin: 12/28/17 23:00 Dose: 125 mg - Labs Labs: 12/29/17 05:20 12/28/17 06:30 PT 21.5 SECONDS (9.4-12.5) H 12/29/17 05:20 INR 1.85 (0.93-1.08) H 12/29/17 05:20 APTT 30.5 Seconds (25.1-36.5) 12/26/17 09:00 - Constitutional Appears: Chronically Ill - Head Exam Head Exam: ATRAUMATIC, NORMAL INSPECTION, NORMOCEPHALIC - Eye Exam Eye Exam: Scleral icterus - ENT Exam ENT Exam: Mucous Membranes Moist - Respiratory Exam Respiratory Exam: Clear to Ausculation Bilateral, NORMAL BREATHING PATTERN. absent: Rales, Rhonchi, Wheezes - Cardiovascular Exam Cardiovascular Exam: Tachycardia, REGULAR RHYTHM, +S1, +S2. absent: Gallop, Rubs, Murmur - GI/Abdominal Exam GI & Abdominal Exam: Soft, Tenderness (RLQ, RUQ, epigastic ), Normal Bowel Sounds. absent: Rigid, Rebound - Extremities Exam Extremities Exam: Normal Inspection. absent: Calf Tenderness, Pedal Edema - Neurological Exam Neurological Exam: Alert, Awake, CN II-XII Intact - Psychiatric Exam Psychiatric exam: Normal Affect, Normal Mood - Skin Skin Exam: Dry, Warm Assessment and Plan - Assessment and Plan (Free Text) Assessment: This is a 72yo female with past medical history COPD, giant cell arteritis, Ulcerative colitis, cholangiocarcinoma s/p cholecystectomy and chemotherapy 2 weeks who is admitted 1. C.diff positive (no diarrhea) 2. Sepsis with neutropenic fever secondary to pancolitis 3. Oral thrush 4. Pancytopenia (improved) 5. cholangiocarcinoma on chemotherapy 6. Primary sclerosing cholangitis 7. Cirrhosis s/p ERCP with biliary stent 8. Ulcerative colitis 9. COPD 10. Giant cell arteritis Plan: WBC increased, Granix was d/c. Continue IV antibiotics as well as oral Vanco and Nystatin. Patient is on contact precautions. Neutropenia resolved. ID is on consult. INR is trending down and LFTs are trending down as well. Will continue to monitor. Oncology recommendations appreciated. Continue liquid diet. Will slowly advance diet as tolerated. Patient is DNR/DNI. Palliative care is following. Prognosis is guarded. Case seen, discussed and reviewed with Dr. Altman. Dom Zazueta PGY2 <Lj Altman V - Last Filed: 12/30/17 01:24> Objective - Vital Signs/Intake and Output Vital Signs (last 24 hours): Temp Pulse Resp BP Pulse Ox 98.4 F 101 H 20 118/72 99 12/30/17 00:37 12/30/17 00:37 12/30/17 00:37 12/30/17 00:37 12/29/17 23:11 Intake and Output: 12/29/17 12/30/17 18:59 06:59 Intake Total 0 Balance 0 - Medications Medications: Current Medications Albuterol/Ipratropium (Duoneb 3 Mg/0.5 Mg (3 Ml) Ud) 3 ml IH [id number] PRN PRN Reason: Shortness of Breath Last Admin: 12/27/17 21:05 Dose: 3 ml Arformoterol Tartrate (Brovana) 15 mcg IH [id number] [facility] Last Admin: 12/28/17 08:01 Dose: Not Given Budesonide (Pulmicort Respules) 0.5 mg IH [id number] [facility] Last Admin: 12/29/17 22:40 Dose: 0.5 mg Al Hydrox/Mg Hydrox/Simethicone 30 ml/Diphenhydramine HCl 75 mg/Lidocaine 30 ml 0 ml PO Q2H PRN PRN Reason: Mouth/Throat Pain Last Admin: 12/25/17 04:04 Dose: 30 ml Metronidazole (Flagyl) 500 mg in 100 mls @ 100 mls/hr IVPB Q8 EMILIE PRN Reason: Protocol Last Admin: 12/29/17 21:54 Dose: 100 mls/hr Dextrose/Sodium Chloride (Dextrose 5%/0.9% Ns 1000 Ml) 1,000 mls @ 100 mls/hr IV .Q10H [facility] Last Admin: 12/29/17 19:06 Dose: 100 mls/hr Potassium Phosphate 15 mmole/ (Sodium Chloride) 255 mls @ 42.5 mls/hr IVPB DAILY [facility] Last Admin: 12/29/17 13:11 Dose: 42.5 mls/hr Lidocaine HCl (Lidocaine 2% Viscous) 15 ml MM Q3H PRN PRN Reason: Other Last Admin: 12/26/17 09:06 Dose: 15 ml Magnesium Oxide (Mag-Ox) 400 mg PO DAILY [facility] Last Admin: 12/29/17 09:11 Dose: 400 mg Nystatin (Nystatin Oral Susp) 5 ml PO QID [facility] Last Admin: 12/29/17 21:54 Dose: 5 ml Pantoprazole Sodium (Protonix Inj) 40 mg IVP DAILY [facility] Last Admin: 12/29/17 09:12 Dose: 40 mg Ursodiol (Actigall) 300 mg PO BID [facility] Last Admin: 12/29/17 18:47 Dose: 300 mg Vancomycin HCl (Vancocin 25 Mg/Ml (Oral Use)) 500 mg PO QID [facility] PRN Reason: Protocol Last Admin: 12/29/17 22:10 Dose: 500 mg - Labs Labs: 12/29/17 05:20 12/29/17 05:20 PT 21.5 SECONDS (9.4-12.5) H 12/29/17 05:20 INR 1.85 (0.93-1.08) H 12/29/17 05:20 APTT 30.5 Seconds (25.1-36.5) 12/26/17 09:00 Attending/Attestation - Attestation I have personally seen and examined this patient.: Yes I have fully participated in the care of the patient.: Yes I have reviewed all pertinent clinical information, including history, physical exam and plan: Yes Notes (Text): This is an addendum to GI progress report dictated by the Glass Cutting Machine Operator.The patient was seen and examined earlier. Medical records, lab studies, imagings were reviewed. Last 24 hours events reviewed. Agreed with the above treatment plan as outlined in Glass Cutting Machine Operator 's notes the with the addition of the following WBC count has increased to 50,000 of Granix only yesterday Clinically patient has anasarca Abdomen distended softly We'll continue clear liquid diet today Follow-up the left E Continue by mouth Vanco for C. difficile Continue antibiotics as per ID 12/30/17 01:22
[2017-12-29 07:04] LABS: ALB/GLOB RATIO 0.6 (1.1-1.8); ALBUMIN 1.9 g/dL (3.0-4.8); ALT/SGPT 53 U/L (7-56); AST/SGOT 99 U/L (14-36); BLOOD UREA NITROGEN 10 mg/dL (7-21); CALCIUM 8.2 mg/dL (8.4-10.5); GFR AFRICAN-AMERICAN > 60; GFR NON-AFRICAN AMERICAN > 60
[2017-12-29] MEDS ORDERED: Potassium Chloride 20 mEq ER Tab PO STA (07:06)
[2017-12-29] MEDS: Budesonide 0.5 mg/2 ml Inhal Susp UD IH SCH ×2 (07:28→22:40)
--- NOTE | 2017-12-29 08:51 | PN ---
DATE: 12/27/2017 SUBJECTIVE: This patient is progressively improving. complaining of some abdominal bloating. She had a soft diet in the a.m. PHYSICAL EXAMINATION: VITAL SIGNS: Stable. HEART: S1 and S2 heard. LUNGS: Bilateral air entry present. ABDOMEN: Softly distended. EXTREMITIES: No edema present. LABORATORY DATA: Reviewed. pancytopenia improving. Total bilirubin still remains elevated. IMPRESSION: 1. Pancytopenia, probably secondary to chemotherapy. 2. Sepsis. 3. Colitis, multifactorial; history of Clostridium difficile probably secondary to Clostridium difficile colitis, mucositis, and history of ulcerative colitis. 4. Metastatic cholangiocarcinoma. RECOMMENDATIONS: 1. We will discuss with Dr. Nguyen and change the diet to clear liquid diet. 2. Continue the antibiotics as per ID. 3. Continue p.o. vancomycin for C. difficile . 4. Follow up of LFTs, status post biliary metal stent placement. 5. Patient has elevated LFTs probably secondary to the sepsis, drug induced or chemo induced and also probably from cholelithiasis. We will continue to closely follow up her care and suggest further management based on the clinical course. Lj Altman MD
[2017-12-29] MEDS: Magnesium Oxide 400 mg Tab UD PO SCH (09:11)
[2017-12-29] MEDS: Nystatin 100,000 Units/ml Oral Susp 5 ml UD PO SCH ×4 (09:11→21:54)
[2017-12-29] MEDS: Vancomycin 25 MG/ML PO SCH ×4 (09:15→22:10)
[2017-12-29 10:14] LABS: LYMPHOCYTE 1 % (22.0-35.0); MONOCYTE 3 % (1.0-6.0); NEUTROPHIL 80 % (50.0-70.0)
[2017-12-29 10:15] LABS: BAND 16 % (0-2)
--- NOTE | 2017-12-29 12:35 | CP.PCM.PN ---
Subjective - Date & Time of Evaluation Date of Evaluation: 12/29/17 Time of Evaluation: 09:40 - Subjective Subjective: NAD, no abd pain or diarrhea Objective - Vital Signs/Intake and Output Vital Signs (last 24 hours): Temp Pulse Resp BP Pulse Ox 97.2 F L 94 H 14 104/60 100 12/29/17 04:00 12/29/17 06:00 12/29/17 06:00 12/29/17 04:00 12/29/17 06:00 Intake and Output: 12/29/17 12/29/17 06:59 18:59 Intake Total 1480 Output Total 400 Balance 1080 - Medications Medications: Current Medications Albuterol/Ipratropium (Duoneb 3 Mg/0.5 Mg (3 Ml) Ud) 3 ml IH [id number] PRN PRN Reason: Shortness of Breath Last Admin: 12/27/17 21:05 Dose: 3 ml Arformoterol Tartrate (Brovana) 15 mcg IH [id number] EMILIE Last Admin: 12/28/17 08:01 Dose: Not Given Budesonide (Pulmicort Respules) 0.5 mg IH [id number] EMILIE Last Admin: 12/29/17 07:28 Dose: Not Given Al Hydrox/Mg Hydrox/Simethicone 30 ml/Diphenhydramine HCl 75 mg/Lidocaine 30 ml 0 ml PO Q2H PRN PRN Reason: Mouth/Throat Pain Last Admin: 12/25/17 04:04 Dose: 30 ml Metronidazole (Flagyl) 500 mg in 100 mls @ 100 mls/hr IVPB Q8 EMILIE PRN Reason: Protocol Last Admin: 12/29/17 05:40 Dose: 100 mls/hr Dextrose/Sodium Chloride (Dextrose 5%/0.9% Ns 1000 Ml) 1,000 mls @ 100 mls/hr IV .Q10H EMILIE Last Admin: 12/28/17 05:32 Dose: 100 mls/hr Meropenem (Merrem Iv 1 Gm Premix) 50 mls @ 100 mls/hr IVPB Q8 EMILIE PRN Reason: Protocol Stop: 01/01/18 06:31 Last Admin: 12/29/17 05:42 Dose: 100 mls/hr Potassium Phosphate 15 mmole/ (Sodium Chloride) 255 mls @ 42.5 mls/hr IVPB DAILY EMILIE Last Admin: 12/28/17 09:48 Dose: 42.5 mls/hr Lidocaine HCl (Lidocaine 2% Viscous) 15 ml MM Q3H PRN PRN Reason: Other Last Admin: 12/26/17 09:06 Dose: 15 ml Magnesium Oxide (Mag-Ox) 400 mg PO DAILY [facility] Last Admin: 12/29/17 09:11 Dose: 400 mg Nystatin (Nystatin Oral Susp) 5 ml PO QID [facility] Last Admin: 12/29/17 09:11 Dose: 5 ml Pantoprazole Sodium (Protonix Inj) 40 mg IVP DAILY [facility] Last Admin: 12/29/17 09:12 Dose: 40 mg Ursodiol (Actigall) 300 mg PO BID [facility] Last Admin: 12/29/17 09:09 Dose: 300 mg Vancomycin HCl (Vancocin 25 Mg/Ml (Oral Use)) 125 mg PO QID [facility] PRN Reason: Protocol Last Admin: 12/29/17 09:15 Dose: 125 mg - Labs Labs: 12/29/17 05:20 12/29/17 05:20 PT 21.5 SECONDS (9.4-12.5) H 12/29/17 05:20 INR 1.85 (0.93-1.08) H 12/29/17 05:20 APTT 30.5 Seconds (25.1-36.5) 12/26/17 09:00 - Respiratory Exam Respiratory Exam: Clear to Ausculation Bilateral, NORMAL BREATHING PATTERN - Cardiovascular Exam Cardiovascular Exam: REGULAR RHYTHM - GI/Abdominal Exam GI & Abdominal Exam: Soft, Normal Bowel Sounds - Extremities Exam Extremities Exam: Normal Inspection - Neurological Exam Neurological Exam: Alert, Awake - Skin Skin Exam: Dry, Warm Assessment and Plan (1) Cholangiocarcinoma Status: Acute (2) Neutropenic fever Status: Acute (3) Abdominal pain Status: Acute (4) Hypokalemia Status: Acute (5) Clostridium difficile colitis Status: Acute - Assessment and Plan (Free Text) Plan: continue present care, may transfer to med/surg, monitor WBC,s
[2017-12-29] MEDS: Potassium Phosphate 15 MMOLE in Sodium Chloride 0.9% 250 ML IVPB SCH (13:11)
--- NOTE | 2017-12-29 13:18 | CP.PCM.PN ---
Subjective - Date & Time of Evaluation Date of Evaluation: 12/29/17 Time of Evaluation: 09:30 - Subjective Subjective: Patient still feels weak and tired, no fevers, still with diarrhea. Objective - Vital Signs/Intake and Output Vital Signs (last 24 hours): Temp Pulse Resp BP Pulse Ox 97.2 F L 94 H 14 104/60 100 12/29/17 04:00 12/29/17 06:00 12/29/17 06:00 12/29/17 04:00 12/29/17 06:00 Intake and Output: 12/29/17 12/29/17 06:59 18:59 Intake Total 1480 Output Total 400 Balance 1080 - Medications Medications: Current Medications Albuterol/Ipratropium (Duoneb 3 Mg/0.5 Mg (3 Ml) Ud) 3 ml IH [id number] PRN PRN Reason: Shortness of Breath Last Admin: 12/27/17 21:05 Dose: 3 ml Arformoterol Tartrate (Brovana) 15 mcg IH [id number] EMILIE Last Admin: 12/28/17 08:01 Dose: Not Given Budesonide (Pulmicort Respules) 0.5 mg IH [id number] EMILIE Last Admin: 12/29/17 07:28 Dose: Not Given Al Hydrox/Mg Hydrox/Simethicone 30 ml/Diphenhydramine HCl 75 mg/Lidocaine 30 ml 0 ml PO Q2H PRN PRN Reason: Mouth/Throat Pain Last Admin: 12/25/17 04:04 Dose: 30 ml Metronidazole (Flagyl) 500 mg in 100 mls @ 100 mls/hr IVPB Q8 EMILIE PRN Reason: Protocol Last Admin: 12/29/17 05:40 Dose: 100 mls/hr Dextrose/Sodium Chloride (Dextrose 5%/0.9% Ns 1000 Ml) 1,000 mls @ 100 mls/hr IV .Q10H EMILIE Last Admin: 12/28/17 05:32 Dose: 100 mls/hr Meropenem (Merrem Iv 1 Gm Premix) 50 mls @ 100 mls/hr IVPB Q8 EMILIE PRN Reason: Protocol Stop: 01/01/18 06:31 Last Admin: 12/29/17 05:42 Dose: 100 mls/hr Potassium Phosphate 15 mmole/ (Sodium Chloride) 255 mls @ 42.5 mls/hr IVPB DAILY [facility] Last Admin: 12/28/17 09:48 Dose: 42.5 mls/hr Lidocaine HCl (Lidocaine 2% Viscous) 15 ml MM Q3H PRN PRN Reason: Other Last Admin: 12/26/17 09:06 Dose: 15 ml Magnesium Oxide (Mag-Ox) 400 mg PO DAILY [facility] Last Admin: 12/29/17 09:11 Dose: 400 mg Nystatin (Nystatin Oral Susp) 5 ml PO QID [facility] Last Admin: 12/29/17 09:11 Dose: 5 ml Pantoprazole Sodium (Protonix Inj) 40 mg IVP DAILY [facility] Last Admin: 12/29/17 09:12 Dose: 40 mg Ursodiol (Actigall) 300 mg PO BID [facility] Last Admin: 12/29/17 09:09 Dose: 300 mg Vancomycin HCl (Vancocin 25 Mg/Ml (Oral Use)) 125 mg PO QID [facility] PRN Reason: Protocol Last Admin: 12/29/17 09:15 Dose: 125 mg - Labs Labs: 12/29/17 05:20 12/29/17 05:20 PT 21.5 SECONDS (9.4-12.5) H 12/29/17 05:20 INR 1.85 (0.93-1.08) H 12/29/17 05:20 APTT 30.5 Seconds (25.1-36.5) 12/26/17 09:00 - Constitutional Appears: Cachectic, Chronically Ill - Head Exam Head Exam: NORMAL INSPECTION - ENT Exam ENT Exam: Mucous Membranes Moist - Neck Exam Neck Exam: absent: Meningismus - Respiratory Exam Respiratory Exam: Decreased Breath Sounds Additional comments: right anterior chest wall port in place - Cardiovascular Exam Cardiovascular Exam: +S1, +S2 - GI/Abdominal Exam GI & Abdominal Exam: Soft. absent: Tenderness Assessment and Plan - Assessment and Plan (Free Text) Plan: Assessment Severe Sepsis with febrile neutropenia, due to pancolitis, with c. diff. 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 diff is positive and will continue PO Vancomycin and IV Flagyl day 5 to complete 10-14 days (will increase dose of PO Vancomycin) will continue monitor clinically overall prognosis is poor discussed with Dr. Altman previously
[2017-12-29] MEDS: Dextrose 5%/0.9% NS 1,000 ML IV SCH (19:06)
[2017-12-30] MEDS: metroNIDAZOLE IV 500 mg/100 ml 500 MG/100 ML BAG IVPB SCH ×3 (05:43→21:42)
[2017-12-30] MEDS: Budesonide 0.5 mg/2 ml Inhal Susp UD IH SCH ×3 (07:44→20:55)
--- NOTE | 2017-12-30 08:07 | CP.PCM.PN ---
<Zoe Zazueta - Last Filed: 12/30/17 11:24> Subjective - Date & Time of Evaluation Date of Evaluation: 12/30/17 Time of Evaluation: 07:00 - Subjective Subjective: GI Progress Note for Dom Richey PGY2 Patient seen and examined at bedside. There were no acute overnight events as per nursing staff. This morning nurse was doing bladder scan at bedside and patient was retaining 720cc of urine. Vail was put in place. This morning patient reports she has been having some diarrhea and some back pain, but denies abdominal pain, chest pain, shortness of breath, nausea/vomiting, fever or chills. Objective - Vital Signs/Intake and Output Vital Signs (last 24 hours): Temp Pulse Resp BP Pulse Ox 98.4 F 101 H 20 118/72 99 12/30/17 00:37 12/30/17 00:37 12/30/17 00:37 12/30/17 00:37 12/29/17 23:11 Intake and Output: 12/30/17 12/30/17 06:59 18:59 Intake Total 1557 Balance 1557 - Medications Medications: Current Medications Albuterol/Ipratropium (Duoneb 3 Mg/0.5 Mg (3 Ml) Ud) 3 ml IH [id number] PRN PRN Reason: Shortness of Breath Last Admin: 12/27/17 21:05 Dose: 3 ml Arformoterol Tartrate (Brovana) 15 mcg IH [id number] [facility] Last Admin: 12/28/17 08:01 Dose: Not Given Budesonide (Pulmicort Respules) 0.5 mg IH [id number] EMILIE Last Admin: 12/30/17 07:44 Dose: Not Given Al Hydrox/Mg Hydrox/Simethicone 30 ml/Diphenhydramine HCl 75 mg/Lidocaine 30 ml 0 ml PO Q2H PRN PRN Reason: Mouth/Throat Pain Last Admin: 12/25/17 04:04 Dose: 30 ml Metronidazole (Flagyl) 500 mg in 100 mls @ 100 mls/hr IVPB Q8 EMILIE PRN Reason: Protocol Last Admin: 12/30/17 05:43 Dose: 100 mls/hr Dextrose/Sodium Chloride (Dextrose 5%/0.9% Ns 1000 Ml) 1,000 mls @ 100 mls/hr IV .Q10H [facility] Last Admin: 12/29/17 19:06 Dose: 100 mls/hr Potassium Phosphate 15 mmole/ (Sodium Chloride) 255 mls @ 42.5 mls/hr IVPB DAILY [facility] Last Admin: 12/29/17 13:11 Dose: 42.5 mls/hr Lidocaine HCl (Lidocaine 2% Viscous) 15 ml MM Q3H PRN PRN Reason: Other Last Admin: 12/26/17 09:06 Dose: 15 ml Magnesium Oxide (Mag-Ox) 400 mg PO DAILY [facility] Last Admin: 12/29/17 09:11 Dose: 400 mg Nystatin (Nystatin Oral Susp) 5 ml PO QID [facility] Last Admin: 12/29/17 21:54 Dose: 5 ml Pantoprazole Sodium (Protonix Inj) 40 mg IVP DAILY [facility] Last Admin: 12/29/17 09:12 Dose: 40 mg Ursodiol (Actigall) 300 mg PO BID [facility] Last Admin: 12/29/17 18:47 Dose: 300 mg Vancomycin HCl (Vancocin 25 Mg/Ml (Oral Use)) 500 mg PO QID [facility] PRN Reason: Protocol Last Admin: 12/29/17 22:10 Dose: 500 mg - Labs Labs: 12/29/17 05:20 12/29/17 05:20 PT 21.5 SECONDS (9.4-12.5) H 12/29/17 05:20 INR 1.85 (0.93-1.08) H 12/29/17 05:20 APTT 30.5 Seconds (25.1-36.5) 12/26/17 09:00 - Constitutional Appears: Chronically Ill - Head Exam Head Exam: ATRAUMATIC, NORMAL INSPECTION, NORMOCEPHALIC - Eye Exam Eye Exam: Scleral icterus Pupil Exam: NORMAL ACCOMODATION - ENT Exam ENT Exam: Mucous Membranes Moist - Respiratory Exam Respiratory Exam: Clear to Ausculation Bilateral, NORMAL BREATHING PATTERN. absent: Rales, Rhonchi, Wheezes - Cardiovascular Exam Cardiovascular Exam: REGULAR RHYTHM, +S1, +S2. absent: Gallop, Rubs, Murmur - GI/Abdominal Exam GI & Abdominal Exam: Soft, Normal Bowel Sounds. absent: Tenderness, Mass, Rebound - Extremities Exam Extremities Exam: Pedal Edema - Neurological Exam Neurological Exam: Alert, Awake, CN II-XII Intact - Psychiatric Exam Psychiatric exam: Normal Affect, Normal Mood - Skin Skin Exam: Dry, Warm Assessment and Plan - Assessment and Plan (Free Text) Assessment: This is a 72yo female with past medical history COPD, giant cell arteritis, Ulcerative colitis, cholangiocarcinoma s/p cholecystectomy and chemotherapy 2 weeks who is admitted 1. C.diff positive 2. Sepsis with neutropenic fever secondary to pancolitis 3. Oral thrush 4. Pancytopenia (improved) 5. cholangiocarcinoma on chemotherapy 6. Primary sclerosing cholangitis 7. Cirrhosis s/p ERCP with biliary stent 8. Ulcerative colitis 9. COPD 10. Giant cell arteritis Plan: Will increase patient diet to soft/low fat. If patient does not tolerate will go back to clear liquis. Continue IV antibiotics as well as oral Vanco and Nystatin. Patient is on contact precautions. ID is on consult. Patient has anasarca. Oncology recommendations appreciated. Patient is DNR/DNI. Palliative care is following. Prognosis is guarded. Case seen, discussed and reviewed with Dr. Altman. Dom Zazueta PGY2 <Lj Altman V - Last Filed: 12/30/17 23:05> Objective - Vital Signs/Intake and Output Vital Signs (last 24 hours): Temp Pulse Resp BP Pulse Ox 97.5 F L 99 H 20 123/80 100 12/30/17 14:00 12/30/17 14:00 12/30/17 14:00 12/30/17 14:00 12/30/17 14:00 Intake and Output: 12/30/17 12/31/17 18:59 06:59 Intake Total 1080 300 Output Total 500 150 Balance 580 150 - Medications Medications: Current Medications Albuterol/Ipratropium (Duoneb 3 Mg/0.5 Mg (3 Ml) Ud) 3 ml IH [id number] PRN PRN Reason: Shortness of Breath Last Admin: 12/30/17 09:47 Dose: 3 ml Arformoterol Tartrate (Brovana) 15 mcg IH [id number] [facility] Last Admin: 12/28/17 08:01 Dose: Not Given Budesonide (Pulmicort Respules) 0.5 mg IH [id number] [facility] Last Admin: 12/30/17 20:55 Dose: Not Given Al Hydrox/Mg Hydrox/Simethicone 30 ml/Diphenhydramine HCl 75 mg/Lidocaine 30 ml 0 ml PO Q2H PRN PRN Reason: Mouth/Throat Pain Last Admin: 12/25/17 04:04 Dose: 30 ml Metronidazole (Flagyl) 500 mg in 100 mls @ 100 mls/hr IVPB Q8 EMILIE PRN Reason: Protocol Last Admin: 12/30/17 21:42 Dose: 100 mls/hr Potassium Phosphate 15 mmole/ (Sodium Chloride) 255 mls @ 42.5 mls/hr IVPB DAILY [facility] Last Admin: 12/30/17 09:37 Dose: 42.5 mls/hr Lidocaine HCl (Lidocaine 2% Viscous) 15 ml MM Q3H PRN PRN Reason: Other Last Admin: 12/26/17 09:06 Dose: 15 ml Magnesium Oxide (Mag-Ox) 400 mg PO DAILY [facility] Last Admin: 12/30/17 09:39 Dose: 400 mg Nystatin (Nystatin Oral Susp) 5 ml PO QID [facility] Last Admin: 12/30/17 21:43 Dose: 5 ml Pantoprazole Sodium (Protonix Inj) 40 mg IVP DAILY [facility] Last Admin: 12/30/17 10:48 Dose: 40 mg Ursodiol (Actigall) 300 mg PO BID [facility] Last Admin: 12/30/17 18:26 Dose: 300 mg Vancomycin HCl (Vancocin 25 Mg/Ml (Oral Use)) 500 mg PO QID [facility]ILIE PRN Reason: Protocol Last Admin: 12/30/17 21:42 Dose: 500 mg - Labs Labs: 12/29/17 05:20 12/29/17 05:20 PT 21.5 SECONDS (9.4-12.5) H 12/29/17 05:20 INR 1.85 (0.93-1.08) H 12/29/17 05:20 APTT 30.5 Seconds (25.1-36.5) 12/26/17 09:00 Attending/Attestation - Attestation I have personally seen and examined this patient.: Yes I have fully participated in the care of the patient.: Yes I have reviewed all pertinent clinical information, including history, physical exam and plan: Yes Notes (Text): This is an addendum to GI progress report dictated by the Pilot [employer] Helper.The patient was seen and examined earlier. Medical records, lab studies, imagings were reviewed. Last 24 hours events reviewed. Agreed with the above treatment plan as outlined in [employer] Helper 's notes the with the addition of the following on examination abdomen softly distended Has a Vail for urinary retention Stool softeners for constipation On po vanco for C. difficile Continue antibiotics as per ID 12/30/17 22:59 12/30/17 23:01
[2017-12-30] MEDS: Potassium Phosphate 15 MMOLE in Sodium Chloride 0.9% 250 ML IVPB SCH (09:37)
[2017-12-30] MEDS: Vancomycin 25 MG/ML PO SCH ×4 (09:38→21:42)
[2017-12-30] MEDS: Nystatin 100,000 Units/ml Oral Susp 5 ml UD PO SCH ×4 (09:39→21:43)
[2017-12-30] MEDS: Magnesium Oxide 400 mg Tab UD PO SCH (09:39)
[2017-12-30] MEDS: Albuterol-Ipratrop 3 mg / 0.5 (3 ml) UD IH PRN (09:47)
--- NOTE | 2017-12-30 09:47 | CP.PCM.PN ---
Subjective - Date & Time of Evaluation Date of Evaluation: 12/30/17 Time of Evaluation: 09:40 - Subjective Subjective: denies abd pain, no diarrhea Objective - Vital Signs/Intake and Output Vital Signs (last 24 hours): Temp Pulse Resp BP Pulse Ox 97.9 F 86 18 118/80 100 12/30/17 06:00 12/30/17 06:00 12/30/17 06:00 12/30/17 06:00 12/30/17 06:00 Intake and Output: 12/30/17 12/30/17 06:59 18:59 Intake Total 1557 Balance 1557 - Medications Medications: Current Medications Albuterol/Ipratropium (Duoneb 3 Mg/0.5 Mg (3 Ml) Ud) 3 ml IH [id number] PRN PRN Reason: Shortness of Breath Last Admin: 12/27/17 21:05 Dose: 3 ml Arformoterol Tartrate (Brovana) 15 mcg IH [id number] [facility] Last Admin: 12/28/17 08:01 Dose: Not Given Budesonide (Pulmicort Respules) 0.5 mg IH [id number] [facility] Last Admin: 12/30/17 07:44 Dose: Not Given Al Hydrox/Mg Hydrox/Simethicone 30 ml/Diphenhydramine HCl 75 mg/Lidocaine 30 ml 0 ml PO Q2H PRN PRN Reason: Mouth/Throat Pain Last Admin: 12/25/17 04:04 Dose: 30 ml Metronidazole (Flagyl) 500 mg in 100 mls @ 100 mls/hr IVPB Q8 EMILIE PRN Reason: Protocol Last Admin: 12/30/17 05:43 Dose: 100 mls/hr Potassium Phosphate 15 mmole/ (Sodium Chloride) 255 mls @ 42.5 mls/hr IVPB DAILY [facility] Last Admin: 12/29/17 13:11 Dose: 42.5 mls/hr Lidocaine HCl (Lidocaine 2% Viscous) 15 ml MM Q3H PRN PRN Reason: Other Last Admin: 12/26/17 09:06 Dose: 15 ml Magnesium Oxide (Mag-Ox) 400 mg PO DAILY [facility] Last Admin: 12/29/17 09:11 Dose: 400 mg Nystatin (Nystatin Oral Susp) 5 ml PO QID [facility] Last Admin: 12/29/17 21:54 Dose: 5 ml Pantoprazole Sodium (Protonix Inj) 40 mg IVP DAILY [facility] Last Admin: 12/29/17 09:12 Dose: 40 mg Ursodiol (Actigall) 300 mg PO BID [facility] Last Admin: 12/29/17 18:47 Dose: 300 mg Vancomycin HCl (Vancocin 25 Mg/Ml (Oral Use)) 500 mg PO QID [facility] PRN Reason: Protocol Last Admin: 12/29/17 22:10 Dose: 500 mg - Labs Labs: 12/29/17 05:20 12/29/17 05:20 PT 21.5 SECONDS (9.4-12.5) H 12/29/17 05:20 INR 1.85 (0.93-1.08) H 12/29/17 05:20 APTT 30.5 Seconds (25.1-36.5) 12/26/17 09:00 - Respiratory Exam Respiratory Exam: Clear to Ausculation Bilateral, NORMAL BREATHING PATTERN - Cardiovascular Exam Cardiovascular Exam: REGULAR RHYTHM - GI/Abdominal Exam GI & Abdominal Exam: Soft, Normal Bowel Sounds - Extremities Exam Extremities Exam: Pedal Edema - Neurological Exam Neurological Exam: Alert, Awake - Skin Skin Exam: Dry, Warm Assessment and Plan (1) Cholangiocarcinoma Status: Acute (2) Neutropenic fever Status: Acute (3) Abdominal pain Status: Acute (4) Hypokalemia Status: Acute (5) Clostridium difficile colitis Status: Acute - Assessment and Plan (Free Text) Plan: continue present rx, advance diet as tolerated, SW for DC planning, check labs in am
--- NOTE | 2017-12-30 21:16 | CP.PCM.PN ---
Subjective - Date & Time of Evaluation Date of Evaluation: 12/30/17 Time of Evaluation: 11:30 - Subjective Subjective: No fevers, not in distress, diarrhea is less. Objective - Vital Signs/Intake and Output Vital Signs (last 24 hours): Temp Pulse Resp BP Pulse Ox 97.9 F 86 18 118/80 100 12/30/17 06:00 12/30/17 06:00 12/30/17 06:00 12/30/17 06:00 12/30/17 06:00 Intake and Output: 12/30/17 12/30/17 06:59 18:59 Intake Total 1557 Balance 1557 - Medications Medications: Current Medications Albuterol/Ipratropium (Duoneb 3 Mg/0.5 Mg (3 Ml) Ud) 3 ml IH [id number] PRN PRN Reason: Shortness of Breath Last Admin: 12/30/17 09:47 Dose: 3 ml Arformoterol Tartrate (Brovana) 15 mcg IH [id number] [facility] Last Admin: 12/28/17 08:01 Dose: Not Given Budesonide (Pulmicort Respules) 0.5 mg IH [id number] [facility] Last Admin: 12/30/17 09:47 Dose: 0.5 mg Al Hydrox/Mg Hydrox/Simethicone 30 ml/Diphenhydramine HCl 75 mg/Lidocaine 30 ml 0 ml PO Q2H PRN PRN Reason: Mouth/Throat Pain Last Admin: 12/25/17 04:04 Dose: 30 ml Metronidazole (Flagyl) 500 mg in 100 mls @ 100 mls/hr IVPB Q8 EMILIE PRN Reason: Protocol Last Admin: 12/30/17 05:43 Dose: 100 mls/hr Potassium Phosphate 15 mmole/ (Sodium Chloride) 255 mls @ 42.5 mls/hr IVPB DAILY [facility] Last Admin: 12/30/17 09:37 Dose: 42.5 mls/hr Lidocaine HCl (Lidocaine 2% Viscous) 15 ml MM Q3H PRN PRN Reason: Other Last Admin: 12/26/17 09:06 Dose: 15 ml Magnesium Oxide (Mag-Ox) 400 mg PO DAILY [facility] Last Admin: 12/30/17 09:39 Dose: 400 mg Nystatin (Nystatin Oral Susp) 5 ml PO QID [facility] Last Admin: 12/30/17 09:39 Dose: 5 ml Pantoprazole Sodium (Protonix Inj) 40 mg IVP DAILY [facility] Last Admin: 12/29/17 09:12 Dose: 40 mg Ursodiol (Actigall) 300 mg PO BID [facility] Last Admin: 12/30/17 09:39 Dose: 300 mg Vancomycin HCl (Vancocin 25 Mg/Ml (Oral Use)) 500 mg PO QID [facility] PRN Reason: Protocol Last Admin: 12/30/17 09:38 Dose: 500 mg - Labs Labs: 12/29/17 05:20 12/29/17 05:20 PT 21.5 SECONDS (9.4-12.5) H 12/29/17 05:20 INR 1.85 (0.93-1.08) H 12/29/17 05:20 APTT 30.5 Seconds (25.1-36.5) 12/26/17 09:00 - Constitutional Appears: Cachectic, Chronically Ill - Head Exam Head Exam: NORMAL INSPECTION - Respiratory Exam Respiratory Exam: Decreased Breath Sounds - Cardiovascular Exam Cardiovascular Exam: +S1, +S2 - GI/Abdominal Exam GI & Abdominal Exam: Soft. absent: Tenderness Assessment and Plan - Assessment and Plan (Free Text) Plan: Assessment Severe Sepsis with febrile neutropenia, due to pancolitis, with c. diff. 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 diff is positive and will continue PO Vancomycin and IV Flagyl day 6 to complete 10-14 days (will increase dose of PO Vancomycin) will continue monitor clinically overall prognosis is poor
--- NOTE | 2017-12-31 02:44 | CON ---
DATE: 12/30/2017 REASON FOR CONSULTATION: Metastatic biliary tract cancer. HISTORY OF PRESENT ILLNESS: The patient is a 72-year-old female with past medical history significant for sclerosing cholangitis for several years, anxiety as well as multiple other medical problems including ulcerative colitis who presented to the emergency room with complaints of diarrhea as well as weakness. Patient has been getting chemotherapy as an outpatient with mo, with Gemzar and Abraxane, and her last chemotherapy prior to the admission was one week prior. She was found to have neutropenic sepsis and now has undergone several transfusions as well as Neupogen for several days and counts are much better. She is still very fatigued and has not been eating as she has nausea still. She did have some ascites, intrahepatic dilatation and did have a metal biliary stent that was placed a few weeks ago. She denies any further complaints at this point and is feeling much better. PAST MEDICAL HISTORY: As above. COPD, metastatic cholangiocarcinoma, history of sclerosing cholangitis, anxiety. PAST SURGICAL HISTORY: Significant for cholecystectomy, sinus surgeries. FAMILY HISTORY: Noncontributory. ALLERGIES: SHE IS ALLERGIC TO ASPIRIN AND IBUPROFEN, SHE HAS ANAPHYLACTIC REACTIONS TO THEM. SOCIAL HISTORY: Noncontributory. She is not a smoker, no alcohol use, no drug use. Lives alone. Her family is very involved in her care though. REVIEW OF SYSTEMS: As per the HPI. PHYSICAL EXAMINATION: VITAL SIGNS: Reveal a temperature 97.9, pulse of 86, respiratory rate 18, blood pressure 118/80. GENERAL: Patient is an elderly frail appearing female lying in bed, in no acute distress. HEAD AND NECK: Normocephalic and atraumatic. Eyes; pupils are equal, round, reactive to light and accommodation. Extraocular muscles are intact. There is pallor. Anicteric both noted. Neck is supple with no adenopathy, no JVD, and no thyromegaly. LUNGS: Clear to auscultation bilaterally with no rales or rhonchi. CARDIOVASCULAR: S1 and S2 is heard. ABDOMEN: Positive bowel sounds and soft. Mild diffuse tenderness. EXTREMITIES: There is no edema. LABORATORY DATA: Reveal a white count of 50.6, post Neupogen, hemoglobin of 8.9, hematocrit of 27.7 and MCV of 94.9, platelet count of 145. Chemistries are now within normal limits. BUN and creatinine is 10 and 0.6. Potassium is low at 3, otherwise within normal limits. Her total bili is also down to 3.5. AST, ALT and alk phos are also improving since admission. As initially her T bili was over 7.9. DIAGNOSTIC DATA: She also had a CT of the abdomen, pelvis done upon admission, which was suggestive of pancolitis and mesenteric reaction. She also had some intrahepatic biliary dilatation and no other acute findings. ASSESSMENT AND PLAN: Elderly female with metastatic cholangiocarcinoma recently diagnosed and with history of sclerosing cholangitis. She has undergone 2 cycles of chemotherapy with Gemzar and Abraxane. Unfortunately, patient was admitted with neutropenic sepsis despite the use of Neulasta in the outpatient setting. She also has pancolitis at this point. Continue intravenous antibiotics as per Infectious Disease. Neupogen has been discontinued. She also had severe anemia. Hemoglobin is now not repeated, post packed red blood cells transfusion. A long discussion with patient's daughter yesterday regarding further chemotherapy plans. At this point, patient would prefer not to continue chemotherapy. She will be going to rehab facility for further rehab. Repeat CBC and CMP ordered. Thank you for the consult. We will follow. Johnna Staton MD
[2017-12-31] MEDS: metroNIDAZOLE IV 500 mg/100 ml 500 MG/100 ML BAG IVPB SCH ×3 (05:54→22:33)
[2017-12-31 07:06] LABS: BASO # 0.07 K/mm3 (0.0-2.0); BASO % 0.3 % (0.0-3.0); GRAN # 19.18 (1.4-6.5); GRAN % 80.8 % (50.0-68.0); LYMPH # 2.2 (1.2-3.4); LYMPH % 9.3 % (22.0-35.0); MEAN CELL VOLUME 91.9 fl (80.0-105.0); MEAN CORPUSCULAR HEMOGLOBIN 30.5 pg (25.0-35.0); MEAN CORPUSCULAR HGB CONC 33.2 g/dl (31.0-37.0); MEAN PLATELET VOLUME 11.6 fl (7.0-11.0); MONO # 2.3 (0.1-0.6); MONO % 9.6 % (1.0-6.0); RBC 3.44 10^6/uL (3.5-6.1); RED CELL DISTRIBUTION WIDTH 21.5 % (11.5-14.5); WHITE BLOOD COUNT 23.7 10^3/ul (4.5-11.0)
[2017-12-31 07:17] LABS: HEMOGLOBIN 10.5 g/dL (12.0-16.0)
[2017-12-31] MEDS: Budesonide 0.5 mg/2 ml Inhal Susp UD IH SCH ×2 (07:39→19:52)
--- NOTE | 2017-12-31 09:34 | CP.PCM.PN ---
Subjective - Date & Time of Evaluation Date of Evaluation: 12/31/17 Time of Evaluation: 09:20 - Subjective Subjective: c/o back pain, otherwise NAD Objective - Vital Signs/Intake and Output Vital Signs (last 24 hours): Temp Pulse Resp BP Pulse Ox 99 F 100 H 20 114/78 99 12/31/17 06:00 12/31/17 06:00 12/31/17 06:00 12/31/17 06:00 12/31/17 06:00 Intake and Output: 12/31/17 12/31/17 06:59 18:59 Intake Total 300 Output Total 150 Balance 150 - Medications Medications: Current Medications Albuterol/Ipratropium (Duoneb 3 Mg/0.5 Mg (3 Ml) Ud) 3 ml IH [id number] PRN PRN Reason: Shortness of Breath Last Admin: 12/30/17 09:47 Dose: 3 ml Arformoterol Tartrate (Brovana) 15 mcg IH [id number] [facility] Last Admin: 12/28/17 08:01 Dose: Not Given Budesonide (Pulmicort Respules) 0.5 mg IH [id number] [facility] Last Admin: 12/31/17 07:39 Dose: Not Given Al Hydrox/Mg Hydrox/Simethicone 30 ml/Diphenhydramine HCl 75 mg/Lidocaine 30 ml 0 ml PO Q2H PRN PRN Reason: Mouth/Throat Pain Last Admin: 12/25/17 04:04 Dose: 30 ml Metronidazole (Flagyl) 500 mg in 100 mls @ 100 mls/hr IVPB Q8 EMILIE PRN Reason: Protocol Last Admin: 12/31/17 05:54 Dose: 100 mls/hr Potassium Phosphate 15 mmole/ (Sodium Chloride) 255 mls @ 42.5 mls/hr IVPB DAILY [facility] Last Admin: 12/30/17 09:37 Dose: 42.5 mls/hr Lidocaine HCl (Lidocaine 2% Viscous) 15 ml MM Q3H PRN PRN Reason: Other Last Admin: 12/26/17 09:06 Dose: 15 ml Magnesium Oxide (Mag-Ox) 400 mg PO DAILY [facility] Last Admin: 12/30/17 09:39 Dose: 400 mg Nystatin (Nystatin Oral Susp) 5 ml PO QID [facility] Last Admin: 12/30/17 21:43 Dose: 5 ml Oxycodone/Acetaminophen (Percocet 5/325 Mg Tab) 1 tab PO Q6H PRN PRN Reason: Pain, moderate (4-7) Stop: 01/03/18 09:31 Pantoprazole Sodium (Protonix Inj) 40 mg IVP DAILY [facility] Last Admin: 12/30/17 10:48 Dose: 40 mg Ursodiol (Actigall) 300 mg PO BID [facility] Last Admin: 12/30/17 18:26 Dose: 300 mg Vancomycin HCl (Vancocin 25 Mg/Ml (Oral Use)) 500 mg PO QID [facility] PRN Reason: Protocol Last Admin: 12/30/17 21:42 Dose: 500 mg - Labs Labs: 12/31/17 06:45 12/29/17 05:20 PT 21.5 SECONDS (9.4-12.5) H 12/29/17 05:20 INR 1.85 (0.93-1.08) H 12/29/17 05:20 APTT 30.5 Seconds (25.1-36.5) 12/26/17 09:00 - Respiratory Exam Respiratory Exam: Clear to Ausculation Bilateral, NORMAL BREATHING PATTERN - Cardiovascular Exam Cardiovascular Exam: REGULAR RHYTHM - GI/Abdominal Exam GI & Abdominal Exam: Soft, Normal Bowel Sounds - Extremities Exam Extremities Exam: Pedal Edema - Neurological Exam Neurological Exam: Alert, Awake Assessment and Plan (1) Cholangiocarcinoma Status: Acute (2) Neutropenic fever Status: Acute (3) Abdominal pain Status: Acute (4) Hypokalemia Status: Acute (5) Clostridium difficile colitis Assessment & Plan: check labs in am , Percocet 5/325 q6 prn pain, SW for disposition possible hospice Status: Acute
--- NOTE | 2017-12-31 10:07 | CP.PCM.PN ---
Subjective - Date & Time of Evaluation Date of Evaluation: 12/31/17 Time of Evaluation: 10:00 - Subjective Subjective: Alert, oriented. Having frequent loose BM's Objective - Vital Signs/Intake and Output Vital Signs (last 24 hours): Temp Pulse Resp BP Pulse Ox 99 F 100 H 20 114/78 99 12/31/17 06:00 12/31/17 06:00 12/31/17 06:00 12/31/17 06:00 12/31/17 06:00 Intake and Output: 12/31/17 12/31/17 06:59 18:59 Intake Total 300 Output Total 150 Balance 150 - Medications Medications: Current Medications Albuterol/Ipratropium (Duoneb 3 Mg/0.5 Mg (3 Ml) Ud) 3 ml IH [id number] PRN PRN Reason: Shortness of Breath Last Admin: 12/30/17 09:47 Dose: 3 ml Arformoterol Tartrate (Brovana) 15 mcg IH [id number] [facility] Last Admin: 12/28/17 08:01 Dose: Not Given Budesonide (Pulmicort Respules) 0.5 mg IH [id number] [facility] Last Admin: 12/31/17 07:39 Dose: Not Given Al Hydrox/Mg Hydrox/Simethicone 30 ml/Diphenhydramine HCl 75 mg/Lidocaine 30 ml 0 ml PO Q2H PRN PRN Reason: Mouth/Throat Pain Last Admin: 12/25/17 04:04 Dose: 30 ml Metronidazole (Flagyl) 500 mg in 100 mls @ 100 mls/hr IVPB Q8 EMILIE PRN Reason: Protocol Last Admin: 12/31/17 05:54 Dose: 100 mls/hr Potassium Phosphate 15 mmole/ (Sodium Chloride) 255 mls @ 42.5 mls/hr IVPB DAILY [facility] Last Admin: 12/30/17 09:37 Dose: 42.5 mls/hr Lidocaine HCl (Lidocaine 2% Viscous) 15 ml MM Q3H PRN PRN Reason: Other Last Admin: 12/26/17 09:06 Dose: 15 ml Magnesium Oxide (Mag-Ox) 400 mg PO DAILY [facility] Last Admin: 12/30/17 09:39 Dose: 400 mg Nystatin (Nystatin Oral Susp) 5 ml PO QID [facility] Last Admin: 12/30/17 21:43 Dose: 5 ml Oxycodone/Acetaminophen (Percocet 5/325 Mg Tab) 1 tab PO Q6H PRN PRN Reason: Pain, moderate (4-7) Stop: 01/03/18 09:31 Pantoprazole Sodium (Protonix Inj) 40 mg IVP DAILY [facility] Last Admin: 12/30/17 10:48 Dose: 40 mg Ursodiol (Actigall) 300 mg PO BID [facility] Last Admin: 12/30/17 18:26 Dose: 300 mg Vancomycin HCl (Vancocin 25 Mg/Ml (Oral Use)) 500 mg PO QID [facility] PRN Reason: Protocol Last Admin: 12/30/17 21:42 Dose: 500 mg - Labs Labs: 12/31/17 06:45 12/29/17 05:20 PT 21.5 SECONDS (9.4-12.5) H 12/29/17 05:20 INR 1.85 (0.93-1.08) H 12/29/17 05:20 APTT 30.5 Seconds (25.1-36.5) 12/26/17 09:00 - Constitutional Appears: Chronically Ill - Eye Exam Eye Exam: Normal appearance, Scleral icterus - ENT Exam ENT Exam: Mucous Membranes Moist, Normal Oropharynx - Respiratory Exam Respiratory Exam: Decreased Breath Sounds, NORMAL BREATHING PATTERN - Cardiovascular Exam Cardiovascular Exam: REGULAR RHYTHM, +S1, +S2 - GI/Abdominal Exam GI & Abdominal Exam: Distended, Soft, Hyperactive Bowel Sounds - Extremities Exam Additional comments: 2 + edema of lower extremities - Back Exam Back Exam: NORMAL INSPECTION - Neurological Exam Neurological Exam: Alert, Oriented x3 - Skin Skin Exam: Dry, Pallor Assessment and Plan - Assessment and Plan (Free Text) Assessment: 72 year old female with history of who was admitted with sepsis,colitis, pancytopenia which has since resolved, now with C Diff. She complains of weakness, frequent loose BM's. She has not gotten out of bed . Encouraged to participate with PT /OT. Plan is for [facility] once medically cleared. Patient is DNR/DNI. Previously discussed hospice care with with daughter Caridad. Family unable to provide hospice care at home. Will transition to facility with hospice in the future. Plan: Goals of care ID: Continue IV antibiotics, Flagyl and Vanco as per ID recondensation Anemia: Montor CBC, transfuse as needed. Deconditioning: PT/OT, [facility].
[2017-12-31] MEDS: Nystatin 100,000 Units/ml Oral Susp 5 ml UD PO SCH ×4 (10:30→22:33)
[2017-12-31] MEDS: Magnesium Oxide 400 mg Tab UD PO SCH (10:30)
[2017-12-31] MEDS: Vancomycin 25 MG/ML PO SCH ×4 (10:31→22:34)
[2017-12-31] MEDS: Potassium Phosphate 15 MMOLE in Sodium Chloride 0.9% 250 ML IVPB SCH (10:31)
--- NOTE | 2017-12-31 11:31 | CP.PCM.PN ---
Subjective - Date & Time of Evaluation Date of Evaluation: 12/31/17 Time of Evaluation: 10:15 - Subjective Subjective: Seen and examined at the bedside this morning, chart reviewed. No reports of acute coronary events. Patient reporting mushy stools, no reports of overt GI bleed. Patient currently eating banana. Denies nausea, vomiting, or abdominal pain. Objective - Vital Signs/Intake and Output Vital Signs (last 24 hours): Temp Pulse Resp BP Pulse Ox 99 F 100 H 20 114/78 99 12/31/17 06:00 12/31/17 06:00 12/31/17 06:00 12/31/17 06:00 12/31/17 06:00 Intake and Output: 12/31/17 12/31/17 06:59 18:59 Intake Total 300 Output Total 150 Balance 150 - Medications Medications: Current Medications Albuterol/Ipratropium (Duoneb 3 Mg/0.5 Mg (3 Ml) Ud) 3 ml IH [id number] PRN PRN Reason: Shortness of Breath Last Admin: 12/30/17 09:47 Dose: 3 ml Arformoterol Tartrate (Brovana) 15 mcg IH [id number] [facility] Last Admin: 12/28/17 08:01 Dose: Not Given Budesonide (Pulmicort Respules) 0.5 mg IH [id number] [facility] Last Admin: 12/31/17 07:39 Dose: Not Given Al Hydrox/Mg Hydrox/Simethicone 30 ml/Diphenhydramine HCl 75 mg/Lidocaine 30 ml 0 ml PO Q2H PRN PRN Reason: Mouth/Throat Pain Last Admin: 12/25/17 04:04 Dose: 30 ml Metronidazole (Flagyl) 500 mg in 100 mls @ 100 mls/hr IVPB Q8 EMILIE PRN Reason: Protocol Last Admin: 12/31/17 05:54 Dose: 100 mls/hr Potassium Phosphate 15 mmole/ (Sodium Chloride) 255 mls @ 42.5 mls/hr IVPB DAILY [facility] Last Admin: 12/31/17 10:31 Dose: 42.5 mls/hr Lidocaine HCl (Lidocaine 2% Viscous) 15 ml MM Q3H PRN PRN Reason: Other Last Admin: 12/26/17 09:06 Dose: 15 ml Magnesium Oxide (Mag-Ox) 400 mg PO DAILY [facility] Last Admin: 12/31/17 10:30 Dose: 400 mg Nystatin (Nystatin Oral Susp) 5 ml PO QID [facility] Last Admin: 12/31/17 10:30 Dose: 5 ml Oxycodone/Acetaminophen (Percocet 5/325 Mg Tab) 1 tab PO Q6H PRN PRN Reason: Pain, moderate (4-7) Stop: 01/03/18 09:31 Pantoprazole Sodium (Protonix Inj) 40 mg IVP DAILY [facility] Last Admin: 12/31/17 10:30 Dose: 40 mg Ursodiol (Actigall) 300 mg PO BID [facility] Last Admin: 12/31/17 10:31 Dose: 300 mg Vancomycin HCl (Vancocin 25 Mg/Ml (Oral Use)) 500 mg PO QID [facility] PRN Reason: Protocol Last Admin: 12/31/17 10:31 Dose: 500 mg - Labs Labs: 12/31/17 06:45 12/29/17 05:20 PT 21.5 SECONDS (9.4-12.5) H 12/29/17 05:20 INR 1.85 (0.93-1.08) H 12/29/17 05:20 APTT 30.5 Seconds (25.1-36.5) 12/26/17 09:00 - Constitutional Appears: No Acute Distress - Eye Exam Eye Exam: Scleral icterus - ENT Exam ENT Exam: Mucous Membranes Moist - Respiratory Exam Respiratory Exam: NORMAL BREATHING PATTERN. absent: Respiratory Distress - Cardiovascular Exam Cardiovascular Exam: +S1, +S2 - GI/Abdominal Exam GI & Abdominal Exam: Soft, Normal Bowel Sounds. absent: Guarding, Tenderness, Rebound - Extremities Exam Extremities Exam: Pedal Edema. absent: Calf Tenderness - Neurological Exam Neurological Exam: Alert, Awake, Oriented x3 - Skin Skin Exam: Dry, Warm Assessment and Plan - Assessment and Plan (Free Text) Assessment: Assessment: Cdiff Positive Improved Odynphagia, oral thrush Sepsis with neutropenic fever secondary to pancolitis Pancytopenia Cholangiocarcinoma on chemotherapy Primary sclerosing cholangitis Cirrhosis s/p ERCP with biliary stent Ulcerative colitis COPD Giant cell arteritis Plan: On IV antibiotics as per ID on oral Vancomycin on Nystatin continue to monitor LFTs and CBC diet as tolerated as per oncology Seen and discussed with Dr. Altman.
--- NOTE | 2017-12-31 20:42 | CP.PCM.PN ---
Subjective - Date & Time of Evaluation Date of Evaluation: 12/31/17 Time of Evaluation: 12:15 - Subjective Subjective: Diarrhea is improving, no fevers. Objective - Vital Signs/Intake and Output Vital Signs (last 24 hours): Temp Pulse Resp BP Pulse Ox 99 F 100 H 20 114/78 99 12/31/17 06:00 12/31/17 06:00 12/31/17 06:00 12/31/17 06:00 12/31/17 06:00 Intake and Output: 12/31/17 12/31/17 06:59 18:59 Intake Total 300 Output Total 150 Balance 150 - Medications Medications: Current Medications Albuterol/Ipratropium (Duoneb 3 Mg/0.5 Mg (3 Ml) Ud) 3 ml IH [id number] PRN PRN Reason: Shortness of Breath Last Admin: 12/30/17 09:47 Dose: 3 ml Arformoterol Tartrate (Brovana) 15 mcg IH [id number] [facility] Last Admin: 12/28/17 08:01 Dose: Not Given Budesonide (Pulmicort Respules) 0.5 mg IH [id number] [facility] Last Admin: 12/31/17 07:39 Dose: Not Given Al Hydrox/Mg Hydrox/Simethicone 30 ml/Diphenhydramine HCl 75 mg/Lidocaine 30 ml 0 ml PO Q2H PRN PRN Reason: Mouth/Throat Pain Last Admin: 12/25/17 04:04 Dose: 30 ml Metronidazole (Flagyl) 500 mg in 100 mls @ 100 mls/hr IVPB Q8 EMILIE PRN Reason: Protocol Last Admin: 12/31/17 05:54 Dose: 100 mls/hr Potassium Phosphate 15 mmole/ (Sodium Chloride) 255 mls @ 42.5 mls/hr IVPB DAILY [facility] Last Admin: 12/30/17 09:37 Dose: 42.5 mls/hr Lidocaine HCl (Lidocaine 2% Viscous) 15 ml MM Q3H PRN PRN Reason: Other Last Admin: 12/26/17 09:06 Dose: 15 ml Magnesium Oxide (Mag-Ox) 400 mg PO DAILY [facility] Last Admin: 12/30/17 09:39 Dose: 400 mg Nystatin (Nystatin Oral Susp) 5 ml PO QID [facility] Last Admin: 12/30/17 21:43 Dose: 5 ml Oxycodone/Acetaminophen (Percocet 5/325 Mg Tab) 1 tab PO Q6H PRN PRN Reason: Pain, moderate (4-7) Stop: 01/03/18 09:31 Pantoprazole Sodium (Protonix Inj) 40 mg IVP DAILY [facility] Last Admin: 12/30/17 10:48 Dose: 40 mg Ursodiol (Actigall) 300 mg PO BID [facility] Last Admin: 12/30/17 18:26 Dose: 300 mg Vancomycin HCl (Vancocin 25 Mg/Ml (Oral Use)) 500 mg PO QID [facility] PRN Reason: Protocol Last Admin: 12/30/17 21:42 Dose: 500 mg - Labs Labs: 12/31/17 06:45 12/29/17 05:20 PT 21.5 SECONDS (9.4-12.5) H 12/29/17 05:20 INR 1.85 (0.93-1.08) H 12/29/17 05:20 APTT 30.5 Seconds (25.1-36.5) 12/26/17 09:00 - Constitutional Appears: Chronically Ill - Head Exam Head Exam: NORMAL INSPECTION - ENT Exam ENT Exam: Mucous Membranes Moist - Neck Exam Neck Exam: absent: Meningismus - Respiratory Exam Respiratory Exam: Decreased Breath Sounds - Cardiovascular Exam Cardiovascular Exam: +S1, +S2 - GI/Abdominal Exam GI & Abdominal Exam: Soft. absent: Tenderness Assessment and Plan - Assessment and Plan (Free Text) Plan: Assessment Severe Sepsis with febrile neutropenia, due to pancolitis, with c. diff. 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 diff is positive and will continue PO Vancomycin and IV Flagyl day 7 to complete 10-14 days will continue monitor clinically overall prognosis is poor
[2018-01-01] MEDS: metroNIDAZOLE IV 500 mg/100 ml 500 MG/100 ML BAG IVPB SCH ×3 (05:33→21:19)
[2018-01-01 06:27] LABS: BASO # 0.03 K/mm3 (0.0-2.0); BASO % 0.2 % (0.0-3.0); EOS % 0.1 % (1.5-5.0); GRAN # 13.66 (1.4-6.5); GRAN % 78.7 % (50.0-68.0); LYMPH # 2.2 (1.2-3.4); LYMPH % 12.4 % (22.0-35.0); MEAN CELL VOLUME 93.3 fl (80.0-105.0); MEAN CORPUSCULAR HEMOGLOBIN 30.4 pg (25.0-35.0); MEAN CORPUSCULAR HGB CONC 32.6 g/dl (31.0-37.0); MEAN PLATELET VOLUME 11.2 fl (7.0-11.0); MONO # 1.5 (0.1-0.6); MONO % 8.6 % (1.0-6.0); RBC 3.29 10^6/uL (3.5-6.1); RED CELL DISTRIBUTION WIDTH 21.3 % (11.5-14.5); WHITE BLOOD COUNT 17.4 10^3/ul (4.5-11.0)
[2018-01-01 07:34] LABS: ALB/GLOB RATIO 0.6 (1.1-1.8); ALBUMIN 1.8 g/dL (3.0-4.8); ALT/SGPT 36 U/L (7-56); AST/SGOT 55 U/L (14-36); BLOOD UREA NITROGEN 14 mg/dL (7-21); GFR AFRICAN-AMERICAN > 60; GFR NON-AFRICAN AMERICAN > 60
[2018-01-01] MEDS: Oxycodone/Acetaminophen 5/325 mg Tab PO PRN ×2 (08:29→21:25)
[2018-01-01] MEDS: Budesonide 0.5 mg/2 ml Inhal Susp UD IH SCH ×2 (09:10→20:03)
[2018-01-01] MEDS: Magnesium Oxide 400 mg Tab UD PO SCH (10:52)
[2018-01-01] MEDS: Nystatin 100,000 Units/ml Oral Susp 5 ml UD PO SCH ×6 (10:52→23:29)
[2018-01-01] MEDS: Potassium Phosphate 15 MMOLE in Sodium Chloride 0.9% 250 ML IVPB SCH (10:52)
[2018-01-01] MEDS: Vancomycin 25 MG/ML PO SCH ×4 (10:53→21:19)
--- NOTE | 2018-01-01 11:10 | CP.PCM.PN ---
<Rima Lao - Last Filed: 01/01/18 11:09> Subjective - Date & Time of Evaluation Date of Evaluation: 01/01/18 Time of Evaluation: 11:07 - Subjective Subjective: S&E at bedside, chart reviewed, no diarrhea, or overt GI bleeding. Patient eating better. No acute overnight events. No N/V or abdominal pain. Objective - Vital Signs/Intake and Output Vital Signs (last 24 hours): Temp Pulse Resp BP Pulse Ox 98.1 F 100 H 20 102/62 100 01/01/18 06:00 01/01/18 06:00 01/01/18 06:00 01/01/18 06:00 01/01/18 06:00 Intake and Output: 01/01/18 01/01/18 06:59 18:59 Intake Total 550 Output Total 150 Balance 400 - Medications Medications: Current Medications Albuterol/Ipratropium (Duoneb 3 Mg/0.5 Mg (3 Ml) Ud) 3 ml IH [id number] PRN PRN Reason: Shortness of Breath Last Admin: 12/30/17 09:47 Dose: 3 ml Arformoterol Tartrate (Brovana) 15 mcg IH [id number] [facility] Last Admin: 12/28/17 08:01 Dose: Not Given Budesonide (Pulmicort Respules) 0.5 mg IH [id number] [facility] Last Admin: 01/01/18 09:10 Dose: 0.5 mg Al Hydrox/Mg Hydrox/Simethicone 30 ml/Diphenhydramine HCl 75 mg/Lidocaine 30 ml 0 ml PO Q2H PRN PRN Reason: Mouth/Throat Pain Last Admin: 12/25/17 04:04 Dose: 30 ml Metronidazole (Flagyl) 500 mg in 100 mls @ 100 mls/hr IVPB Q8 EMILIE PRN Reason: Protocol Last Admin: 01/01/18 05:33 Dose: 100 mls/hr Potassium Phosphate 15 mmole/ (Sodium Chloride) 255 mls @ 42.5 mls/hr IVPB DAILY [facility] Last Admin: 01/01/18 10:52 Dose: 42.5 mls/hr Lidocaine HCl (Lidocaine 2% Viscous) 15 ml MM Q3H PRN PRN Reason: Other Last Admin: 12/26/17 09:06 Dose: 15 ml Magnesium Oxide (Mag-Ox) 400 mg PO DAILY [facility] Last Admin: 01/01/18 10:52 Dose: 400 mg Nystatin (Nystatin Oral Susp) 5 ml PO QID [facility] Last Admin: 01/01/18 11:01 Dose: Not Given Oxycodone/Acetaminophen (Percocet 5/325 Mg Tab) 1 tab PO Q6H PRN PRN Reason: Pain, moderate (4-7) Stop: 01/03/18 09:31 Last Admin: 01/01/18 08:29 Dose: 1 tab Pantoprazole Sodium (Protonix Inj) 40 mg IVP DAILY [facility] Last Admin: 01/01/18 10:52 Dose: 40 mg Ursodiol (Actigall) 300 mg PO BID [facility] Last Admin: 01/01/18 10:52 Dose: 300 mg Vancomycin HCl (Vancocin 25 Mg/Ml (Oral Use)) 500 mg PO QID [facility] PRN Reason: Protocol Last Admin: 01/01/18 10:53 Dose: 500 mg - Labs Labs: 01/01/18 06:10 01/01/18 06:10 PT 21.5 SECONDS (9.4-12.5) H 12/29/17 05:20 INR 1.85 (0.93-1.08) H 12/29/17 05:20 APTT 30.5 Seconds (25.1-36.5) 12/26/17 09:00 - Constitutional Appears: No Acute Distress - Eye Exam Eye Exam: Scleral icterus - ENT Exam ENT Exam: Mucous Membranes Moist - Neck Exam Neck Exam: Normal Inspection - Respiratory Exam Respiratory Exam: NORMAL BREATHING PATTERN. absent: Respiratory Distress - Cardiovascular Exam Cardiovascular Exam: +S1, +S2 - GI/Abdominal Exam GI & Abdominal Exam: Soft, Normal Bowel Sounds. absent: Guarding, Tenderness, Rebound - Extremities Exam Extremities Exam: absent: Calf Tenderness - Neurological Exam Neurological Exam: Alert, Awake, Oriented x3 Assessment and Plan - Assessment and Plan (Free Text) Assessment: Assessment: Cdiff Positive Improved Odynphagia, oral thrush Sepsis with neutropenic fever secondary to pancolitis Pancytopenia Cholangiocarcinoma on chemotherapy Primary sclerosing cholangitis Cirrhosis s/p ERCP with biliary stent Ulcerative colitis COPD Giant cell arteritis Plan: On IV antibiotics as per ID on oral Vancomycin on Nystatin On Actigall continue to monitor LFTs and CBC diet as tolerated as per oncology Seen and discussed with Dr. Altman. <Lj Altman V - Last Filed: 01/02/18 00:59> Objective - Vital Signs/Intake and Output Vital Signs (last 24 hours): Temp Pulse Resp BP Pulse Ox 97.8 F 105 H 97 H 108/70 18 L 01/01/18 22:00 01/01/18 22:00 01/01/18 22:00 01/01/18 22:00 01/01/18 22:00 Intake and Output: 01/01/18 01/02/18 18:59 06:59 Intake Total 240 240 Output Total 200 200 Balance 40 40 - Medications Medications: Current Medications Albuterol/Ipratropium (Duoneb 3 Mg/0.5 Mg (3 Ml) Ud) 3 ml IH [id number] PRN PRN Reason: Shortness of Breath Last Admin: 12/30/17 09:47 Dose: 3 ml Arformoterol Tartrate (Brovana) 15 mcg IH [id number] [facility] Last Admin: 12/28/17 08:01 Dose: Not Given Budesonide (Pulmicort Respules) 0.5 mg IH [id number] [facility] Last Admin: 01/01/18 20:03 Dose: Not Given Al Hydrox/Mg Hydrox/Simethicone 30 ml/Diphenhydramine HCl 75 mg/Lidocaine 30 ml 0 ml PO Q2H PRN PRN Reason: Mouth/Throat Pain Last Admin: 12/25/17 04:04 Dose: 30 ml Metronidazole (Flagyl) 500 mg in 100 mls @ 100 mls/hr IVPB Q8 EMILIE PRN Reason: Protocol Last Admin: 01/01/18 21:19 Dose: 100 mls/hr Potassium Phosphate 15 mmole/ (Sodium Chloride) 255 mls @ 42.5 mls/hr IVPB DAILY [facility] Last Admin: 01/01/18 10:52 Dose: 42.5 mls/hr Lidocaine HCl (Lidocaine 2% Viscous) 15 ml MM Q3H PRN PRN Reason: Other Last Admin: 12/26/17 09:06 Dose: 15 ml Magnesium Oxide (Mag-Ox) 400 mg PO DAILY [facility] Last Admin: 01/01/18 10:52 Dose: 400 mg Nystatin (Nystatin Oral Susp) 5 ml PO QID [facility] Last Admin: 06/14/18 23:29 Dose: Not Given Ondansetron HCl (Zofran Odt) 4 mg PO Q8H PRN PRN Reason: Nausea/Vomiting Oxycodone/Acetaminophen (Percocet 5/325 Mg Tab) 1 tab PO Q6H PRN PRN Reason: Pain, moderate (4-7) Stop: 01/03/18 09:31 Last Admin: 01/01/18 21:25 Dose: 1 tab Pantoprazole Sodium (Protonix Inj) 40 mg IVP DAILY [facility] Last Admin: 01/01/18 10:52 Dose: 40 mg Ursodiol (Actigall) 300 mg PO BID [facility] Last Admin: 01/01/18 18:56 Dose: Not Given Vancomycin HCl (Vancocin 25 Mg/Ml (Oral Use)) 500 mg PO QID [facility] PRN Reason: Protocol Last Admin: 01/01/18 21:19 Dose: 500 mg - Labs Labs: 01/01/18 06:10 01/01/18 06:10 PT 21.5 SECONDS (9.4-12.5) H 12/29/17 05:20 INR 1.85 (0.93-1.08) H 12/29/17 05:20 APTT 30.5 Seconds (25.1-36.5) 12/26/17 09:00 Attending/Attestation - Attestation I have personally seen and examined this patient.: Yes I have fully participated in the care of the patient.: Yes I have reviewed all pertinent clinical information, including history, physical exam and plan: Yes Notes (Text): This is an addendum to GI progress report dictated by Rima Lao APN.The patient was seen and examined earlier. Medical records, lab studies, imagings were reviewed. Last 24 hours events reviewed. Agreed with the above treatment plan as outlined in Rima Lao APN's notes the with the addition of the following on examination abdomen soft no tenderness Follow-up LFTs continue antibiotics as per ID Continue Actigall 01/02/18 00:53
--- NOTE | 2018-01-01 11:46 | CP.PCM.PN ---
Subjective - Date & Time of Evaluation Date of Evaluation: 01/01/18 Time of Evaluation: 09:30 - Subjective Subjective: c/o back pain, otherwise NAD Objective - Vital Signs/Intake and Output Vital Signs (last 24 hours): Temp Pulse Resp BP Pulse Ox 98.1 F 100 H 20 102/62 100 01/01/18 06:00 01/01/18 06:00 01/01/18 06:00 01/01/18 06:00 01/01/18 06:00 Intake and Output: 01/01/18 01/01/18 06:59 18:59 Intake Total 550 Output Total 150 Balance 400 - Medications Medications: Current Medications Albuterol/Ipratropium (Duoneb 3 Mg/0.5 Mg (3 Ml) Ud) 3 ml IH [id number] PRN PRN Reason: Shortness of Breath Last Admin: 12/30/17 09:47 Dose: 3 ml Arformoterol Tartrate (Brovana) 15 mcg IH [id number] [facility] Last Admin: 12/28/17 08:01 Dose: Not Given Budesonide (Pulmicort Respules) 0.5 mg IH [id number] [facility] Last Admin: 01/01/18 09:10 Dose: 0.5 mg Al Hydrox/Mg Hydrox/Simethicone 30 ml/Diphenhydramine HCl 75 mg/Lidocaine 30 ml 0 ml PO Q2H PRN PRN Reason: Mouth/Throat Pain Last Admin: 12/25/17 04:04 Dose: 30 ml Metronidazole (Flagyl) 500 mg in 100 mls @ 100 mls/hr IVPB Q8 EMILIE PRN Reason: Protocol Last Admin: 01/01/18 05:33 Dose: 100 mls/hr Potassium Phosphate 15 mmole/ (Sodium Chloride) 255 mls @ 42.5 mls/hr IVPB DAILY [facility] Last Admin: 01/01/18 10:52 Dose: 42.5 mls/hr Lidocaine HCl (Lidocaine 2% Viscous) 15 ml MM Q3H PRN PRN Reason: Other Last Admin: 12/26/17 09:06 Dose: 15 ml Magnesium Oxide (Mag-Ox) 400 mg PO DAILY [facility] Last Admin: 01/01/18 10:52 Dose: 400 mg Nystatin (Nystatin Oral Susp) 5 ml PO QID [facility] Last Admin: 01/01/18 11:01 Dose: Not Given Oxycodone/Acetaminophen (Percocet 5/325 Mg Tab) 1 tab PO Q6H PRN PRN Reason: Pain, moderate (4-7) Stop: 01/03/18 09:31 Last Admin: 01/01/18 08:29 Dose: 1 tab Pantoprazole Sodium (Protonix Inj) 40 mg IVP DAILY [facility] Last Admin: 01/01/18 10:52 Dose: 40 mg Ursodiol (Actigall) 300 mg PO BID [facility] Last Admin: 01/01/18 10:52 Dose: 300 mg Vancomycin HCl (Vancocin 25 Mg/Ml (Oral Use)) 500 mg PO QID [facility] PRN Reason: Protocol Last Admin: 01/01/18 10:53 Dose: 500 mg - Labs Labs: 01/01/18 06:10 01/01/18 06:10 PT 21.5 SECONDS (9.4-12.5) H 12/29/17 05:20 INR 1.85 (0.93-1.08) H 12/29/17 05:20 APTT 30.5 Seconds (25.1-36.5) 12/26/17 09:00 - Respiratory Exam Respiratory Exam: Clear to Ausculation Bilateral, NORMAL BREATHING PATTERN - Cardiovascular Exam Cardiovascular Exam: REGULAR RHYTHM - GI/Abdominal Exam GI & Abdominal Exam: Soft, Normal Bowel Sounds - Extremities Exam Additional comments: generalized anasarca - Neurological Exam Neurological Exam: Alert, Awake - Skin Skin Exam: Dry, Warm Assessment and Plan (1) Cholangiocarcinoma Status: Acute (2) Neutropenic fever Status: Acute (3) Abdominal pain Status: Acute (4) Hypokalemia Status: Acute (5) Clostridium difficile colitis Status: Acute (6) Anasarca Status: Chronic - Assessment and Plan (Free Text) Plan: continue supportive care, monitor CBC/lytes, SW for disposition, prognosis remains terminal
--- NOTE | 2018-01-01 17:00 | CP.PCM.PN ---
Subjective - Date & Time of Evaluation Date of Evaluation: 01/01/18 Time of Evaluation: 11:05 - Subjective Subjective: Diarrhea is a little bit improved, no fevers, not in distress but still feels weak. Objective - Vital Signs/Intake and Output Vital Signs (last 24 hours): Temp Pulse Resp BP Pulse Ox 98.1 F 100 H 20 102/62 100 01/01/18 06:00 01/01/18 06:00 01/01/18 06:00 01/01/18 06:00 01/01/18 06:00 Intake and Output: 01/01/18 01/01/18 06:59 18:59 Intake Total 550 Output Total 150 Balance 400 - Medications Medications: Current Medications Albuterol/Ipratropium (Duoneb 3 Mg/0.5 Mg (3 Ml) Ud) 3 ml IH [id number] PRN PRN Reason: Shortness of Breath Last Admin: 12/30/17 09:47 Dose: 3 ml Arformoterol Tartrate (Brovana) 15 mcg IH [id number] [facility] Last Admin: 12/28/17 08:01 Dose: Not Given Budesonide (Pulmicort Respules) 0.5 mg IH [id number] [facility] Last Admin: 01/01/18 09:10 Dose: 0.5 mg Al Hydrox/Mg Hydrox/Simethicone 30 ml/Diphenhydramine HCl 75 mg/Lidocaine 30 ml 0 ml PO Q2H PRN PRN Reason: Mouth/Throat Pain Last Admin: 12/25/17 04:04 Dose: 30 ml Metronidazole (Flagyl) 500 mg in 100 mls @ 100 mls/hr IVPB Q8 EMILIE PRN Reason: Protocol Last Admin: 01/01/18 05:33 Dose: 100 mls/hr Potassium Phosphate 15 mmole/ (Sodium Chloride) 255 mls @ 42.5 mls/hr IVPB DAILY [facility] Last Admin: 12/31/17 10:31 Dose: 42.5 mls/hr Lidocaine HCl (Lidocaine 2% Viscous) 15 ml MM Q3H PRN PRN Reason: Other Last Admin: 12/26/17 09:06 Dose: 15 ml Magnesium Oxide (Mag-Ox) 400 mg PO DAILY [facility] Last Admin: 12/31/17 10:30 Dose: 400 mg Nystatin (Nystatin Oral Susp) 5 ml PO QID EMILIE Last Admin: 12/31/17 22:33 Dose: 5 ml Oxycodone/Acetaminophen (Percocet 5/325 Mg Tab) 1 tab PO Q6H PRN PRN Reason: Pain, moderate (4-7) Stop: 01/03/18 09:31 Last Admin: 01/01/18 08:29 Dose: 1 tab Pantoprazole Sodium (Protonix Inj) 40 mg IVP DAILY [facility] Last Admin: 12/31/17 10:30 Dose: 40 mg Ursodiol (Actigall) 300 mg PO BID [facility] Last Admin: 12/31/17 19:33 Dose: 300 mg Vancomycin HCl (Vancocin 25 Mg/Ml (Oral Use)) 500 mg PO QID [facility] PRN Reason: Protocol Last Admin: 12/31/17 22:34 Dose: 500 mg - Labs Labs: 01/01/18 06:10 01/01/18 06:10 PT 21.5 SECONDS (9.4-12.5) H 12/29/17 05:20 INR 1.85 (0.93-1.08) H 12/29/17 05:20 APTT 30.5 Seconds (25.1-36.5) 12/26/17 09:00 - Constitutional Appears: Cachectic, Chronically Ill - Head Exam Head Exam: NORMAL INSPECTION - Respiratory Exam Respiratory Exam: Decreased Breath Sounds - Cardiovascular Exam Cardiovascular Exam: +S1, +S2 - GI/Abdominal Exam GI & Abdominal Exam: Soft. absent: Tenderness Assessment and Plan - Assessment and Plan (Free Text) Plan: Assessment Severe Sepsis with febrile neutropenia, due to pancolitis, with c. diff. 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 diff is positive and will continue PO Vancomycin and IV Flagyl day 8 to complete 10-14 days will continue monitor clinically overall prognosis is poor
[2018-01-02] MEDS: metroNIDAZOLE IV 500 mg/100 ml 500 MG/100 ML BAG IVPB SCH (05:21)
[2018-01-02] MEDS: Budesonide 0.5 mg/2 ml Inhal Susp UD IH SCH (07:23)
[2018-01-02] MEDS: Arformoterol 15 mcg/2 ml Inh Sol IH SCH (07:44)
[2018-01-02] MEDS: Magnesium Oxide 400 mg Tab UD PO SCH (10:29)
[2018-01-02] MEDS: Nystatin 100,000 Units/ml Oral Susp 5 ml UD PO SCH ×3 (10:29→18:05)
[2018-01-02] MEDS: Potassium Phosphate 15 MMOLE in Sodium Chloride 0.9% 250 ML IVPB SCH (10:30)
[2018-01-02] MEDS: Vancomycin 25 MG/ML PO SCH ×3 (10:31→17:55)
--- NOTE | 2018-01-02 10:47 | CP.PCM.PN ---
Subjective - Date & Time of Evaluation Date of Evaluation: 01/02/18 Time of Evaluation: 10:20 - Subjective Subjective: resting comfortably, NAD Objective - Vital Signs/Intake and Output Vital Signs (last 24 hours): Temp Pulse Resp BP Pulse Ox 98 F 103 H 18 116/74 97 01/02/18 06:00 01/02/18 06:00 01/02/18 06:00 01/02/18 06:00 01/02/18 06:00 Intake and Output: 01/02/18 01/02/18 06:59 18:59 Intake Total 910 Output Total 400 Balance 510 - Medications Medications: Current Medications Albuterol/Ipratropium (Duoneb 3 Mg/0.5 Mg (3 Ml) Ud) 3 ml IH [id number] PRN PRN Reason: Shortness of Breath Last Admin: 12/30/17 09:47 Dose: 3 ml Arformoterol Tartrate (Brovana) 15 mcg IH [id number] [facility] Last Admin: 01/02/18 07:44 Dose: Not Given Budesonide (Pulmicort Respules) 0.5 mg IH [id number] [facility] Last Admin: 01/02/18 07:23 Dose: Not Given Al Hydrox/Mg Hydrox/Simethicone 30 ml/Diphenhydramine HCl 75 mg/Lidocaine 30 ml 0 ml PO Q2H PRN PRN Reason: Mouth/Throat Pain Last Admin: 12/25/17 04:04 Dose: 30 ml Metronidazole (Flagyl) 500 mg in 100 mls @ 100 mls/hr IVPB Q8 EMILIE PRN Reason: Protocol Last Admin: 01/02/18 05:21 Dose: 100 mls/hr Potassium Phosphate 15 mmole/ (Sodium Chloride) 255 mls @ 42.5 mls/hr IVPB DAILY [facility] Last Admin: 01/01/18 10:52 Dose: 42.5 mls/hr Lidocaine HCl (Lidocaine 2% Viscous) 15 ml MM Q3H PRN PRN Reason: Other Last Admin: 12/26/17 09:06 Dose: 15 ml Magnesium Oxide (Mag-Ox) 400 mg PO DAILY [facility] Last Admin: 01/01/18 10:52 Dose: 400 mg Nystatin (Nystatin Oral Susp) 5 ml PO QID [facility] Last Admin: 01/01/18 23:29 Dose: Not Given Ondansetron HCl (Zofran Odt) 4 mg PO Q8H PRN PRN Reason: Nausea/Vomiting Oxycodone/Acetaminophen (Percocet 5/325 Mg Tab) 1 tab PO Q6H PRN PRN Reason: Pain, moderate (4-7) Stop: 01/03/18 09:31 Last Admin: 01/01/18 21:25 Dose: 1 tab Pantoprazole Sodium (Protonix Inj) 40 mg IVP DAILY [facility] Last Admin: 01/01/18 10:52 Dose: 40 mg Ursodiol (Actigall) 300 mg PO BID [facility] Last Admin: 01/01/18 18:56 Dose: Not Given Vancomycin HCl (Vancocin 25 Mg/Ml (Oral Use)) 500 mg PO QID [facility] PRN Reason: Protocol Last Admin: 01/01/18 21:19 Dose: 500 mg - Labs Labs: 01/01/18 06:10 01/01/18 06:10 PT 21.5 SECONDS (9.4-12.5) H 12/29/17 05:20 INR 1.85 (0.93-1.08) H 12/29/17 05:20 APTT 30.5 Seconds (25.1-36.5) 12/26/17 09:00 - Respiratory Exam Respiratory Exam: Clear to Ausculation Bilateral, NORMAL BREATHING PATTERN - Cardiovascular Exam Cardiovascular Exam: REGULAR RHYTHM - GI/Abdominal Exam GI & Abdominal Exam: Soft, Normal Bowel Sounds - Extremities Exam Extremities Exam: Pedal Edema - Neurological Exam Neurological Exam: Alert, Awake - Skin Skin Exam: Dry, Warm Assessment and Plan (1) Cholangiocarcinoma Status: Acute (2) Neutropenic fever Status: Acute (3) Abdominal pain Status: Acute (4) Hypokalemia Status: Acute (5) Clostridium difficile colitis Status: Acute (6) Anasarca Status: Chronic - Assessment and Plan (Free Text) Plan: continue supportive care, monitor lytes/CBC
--- NOTE | 2018-01-02 11:14 | CP.PCM.PN ---
Subjective - Date & Time of Evaluation Date of Evaluation: 01/02/18 Time of Evaluation: 10:50 - Subjective Subjective: S&E at bedside, chart reviewed, no acute overnight events or new complaints. No diarrhea, can't remember last Bm, does get nausea times but still able to eat and reports better appetite, no difficulty swallowing, much improved. Objective - Vital Signs/Intake and Output Vital Signs (last 24 hours): Temp Pulse Resp BP Pulse Ox 98 F 103 H 18 116/74 97 01/02/18 06:00 01/02/18 06:00 01/02/18 06:00 01/02/18 06:00 01/02/18 06:00 Intake and Output: 01/02/18 01/02/18 06:59 18:59 Intake Total 910 Output Total 400 Balance 510 - Medications Medications: Current Medications Albuterol/Ipratropium (Duoneb 3 Mg/0.5 Mg (3 Ml) Ud) 3 ml IH [id number] PRN PRN Reason: Shortness of Breath Last Admin: 12/30/17 09:47 Dose: 3 ml Arformoterol Tartrate (Brovana) 15 mcg IH [id number] [facility] Last Admin: 01/02/18 07:44 Dose: Not Given Budesonide (Pulmicort Respules) 0.5 mg IH [id number] [facility] Last Admin: 01/02/18 07:23 Dose: Not Given Al Hydrox/Mg Hydrox/Simethicone 30 ml/Diphenhydramine HCl 75 mg/Lidocaine 30 ml 0 ml PO Q2H PRN PRN Reason: Mouth/Throat Pain Last Admin: 12/25/17 04:04 Dose: 30 ml Metronidazole (Flagyl) 500 mg in 100 mls @ 100 mls/hr IVPB Q8 EMILIE PRN Reason: Protocol Last Admin: 01/02/18 05:21 Dose: 100 mls/hr Potassium Phosphate 15 mmole/ (Sodium Chloride) 255 mls @ 42.5 mls/hr IVPB DAILY [facility] Last Admin: 01/02/18 10:30 Dose: 42.5 mls/hr Lidocaine HCl (Lidocaine 2% Viscous) 15 ml MM Q3H PRN PRN Reason: Other Last Admin: 12/26/17 09:06 Dose: 15 ml Magnesium Oxide (Mag-Ox) 400 mg PO DAILY [facility] Last Admin: 01/02/18 10:29 Dose: 400 mg Nystatin (Nystatin Oral Susp) 5 ml PO QID [facility] Last Admin: 01/02/18 10:29 Dose: 5 ml Ondansetron HCl (Zofran Odt) 4 mg PO Q8H PRN PRN Reason: Nausea/Vomiting Oxycodone/Acetaminophen (Percocet 5/325 Mg Tab) 1 tab PO Q6H PRN PRN Reason: Pain, moderate (4-7) Stop: 01/03/18 09:31 Last Admin: 01/01/18 21:25 Dose: 1 tab Pantoprazole Sodium (Protonix Inj) 40 mg IVP DAILY [facility] Last Admin: 01/02/18 10:30 Dose: 40 mg Ursodiol (Actigall) 300 mg PO BID [facility] Last Admin: 01/02/18 10:29 Dose: 300 mg Vancomycin HCl (Vancocin 25 Mg/Ml (Oral Use)) 500 mg PO QID [facility] PRN Reason: Protocol Last Admin: 01/02/18 10:31 Dose: 500 mg - Labs Labs: 01/01/18 06:10 01/01/18 06:10 PT 21.5 SECONDS (9.4-12.5) H 12/29/17 05:20 INR 1.85 (0.93-1.08) H 12/29/17 05:20 APTT 30.5 Seconds (25.1-36.5) 12/26/17 09:00 - Constitutional Appears: No Acute Distress - Eye Exam Eye Exam: Scleral icterus - ENT Exam ENT Exam: Mucous Membranes Moist - Respiratory Exam Respiratory Exam: NORMAL BREATHING PATTERN. absent: Respiratory Distress - Cardiovascular Exam Cardiovascular Exam: +S1, +S2 - GI/Abdominal Exam GI & Abdominal Exam: Soft, Normal Bowel Sounds. absent: Guarding, Tenderness, Rebound - Extremities Exam Extremities Exam: Pedal Edema. absent: Calf Tenderness - Neurological Exam Neurological Exam: Alert, Awake, Oriented x3 - Skin Skin Exam: Dry, Warm Assessment and Plan - Assessment and Plan (Free Text) Assessment: Assessment: Cdiff Positive, resolving Improved Odynphagia, oral thrush Sepsis with neutropenic fever secondary to pancolitis Pancytopenia Cholangiocarcinoma on chemotherapy Primary sclerosing cholangitis Cirrhosis s/p ERCP with biliary stent Ulcerative colitis COPD Giant cell arteritis Plan: On IV antibiotics Flagyl on oral Vancomycin on Nystatin On Actigall Zofran prn continue to monitor LFTs and CBC diet as tolerated as per oncology Seen and discussed with Dr. Altman.
--- NOTE | 2018-01-02 13:00 | CP.PCM.PN ---
Subjective - Date & Time of Evaluation Date of Evaluation: 01/02/18 Time of Evaluation: 11:45 - Subjective Subjective: Patient has no more diarrhea, no fevers, not in distress. Still feels weak. Objective - Vital Signs/Intake and Output Vital Signs (last 24 hours): Temp Pulse Resp BP Pulse Ox 98 F 103 H 18 116/74 97 01/02/18 06:00 01/02/18 06:00 01/02/18 06:00 01/02/18 06:00 01/02/18 06:00 Intake and Output: 01/02/18 01/02/18 06:59 18:59 Intake Total 910 Output Total 400 Balance 510 - Medications Medications: Current Medications Albuterol/Ipratropium (Duoneb 3 Mg/0.5 Mg (3 Ml) Ud) 3 ml IH [id number] PRN PRN Reason: Shortness of Breath Last Admin: 12/30/17 09:47 Dose: 3 ml Arformoterol Tartrate (Brovana) 15 mcg IH [id number] [facility] Last Admin: 01/02/18 07:44 Dose: Not Given Budesonide (Pulmicort Respules) 0.5 mg IH [id number] [facility] Last Admin: 01/02/18 07:23 Dose: Not Given Al Hydrox/Mg Hydrox/Simethicone 30 ml/Diphenhydramine HCl 75 mg/Lidocaine 30 ml 0 ml PO Q2H PRN PRN Reason: Mouth/Throat Pain Last Admin: 12/25/17 04:04 Dose: 30 ml Metronidazole (Flagyl) 500 mg in 100 mls @ 100 mls/hr IVPB Q8 EMILIE PRN Reason: Protocol Last Admin: 01/02/18 05:21 Dose: 100 mls/hr Potassium Phosphate 15 mmole/ (Sodium Chloride) 255 mls @ 42.5 mls/hr IVPB DAILY [facility] Last Admin: 01/01/18 10:52 Dose: 42.5 mls/hr Lidocaine HCl (Lidocaine 2% Viscous) 15 ml MM Q3H PRN PRN Reason: Other Last Admin: 12/26/17 09:06 Dose: 15 ml Magnesium Oxide (Mag-Ox) 400 mg PO DAILY [facility] Last Admin: 01/01/18 10:52 Dose: 400 mg Nystatin (Nystatin Oral Susp) 5 ml PO QID [facility] Last Admin: 01/01/18 23:29 Dose: Not Given Ondansetron HCl (Zofran Odt) 4 mg PO Q8H PRN PRN Reason: Nausea/Vomiting Oxycodone/Acetaminophen (Percocet 5/325 Mg Tab) 1 tab PO Q6H PRN PRN Reason: Pain, moderate (4-7) Stop: 01/03/18 09:31 Last Admin: 01/01/18 21:25 Dose: 1 tab Pantoprazole Sodium (Protonix Inj) 40 mg IVP DAILY [facility] Last Admin: 01/01/18 10:52 Dose: 40 mg Ursodiol (Actigall) 300 mg PO BID [facility] Last Admin: 01/01/18 18:56 Dose: Not Given Vancomycin HCl (Vancocin 25 Mg/Ml (Oral Use)) 500 mg PO QID [facility] PRN Reason: Protocol Last Admin: 01/01/18 21:19 Dose: 500 mg - Labs Labs: 01/01/18 06:10 01/01/18 06:10 PT 21.5 SECONDS (9.4-12.5) H 12/29/17 05:20 INR 1.85 (0.93-1.08) H 12/29/17 05:20 APTT 30.5 Seconds (25.1-36.5) 12/26/17 09:00 - Constitutional Appears: Cachectic, Chronically Ill - Head Exam Head Exam: NORMAL INSPECTION - ENT Exam ENT Exam: Mucous Membranes Moist - Neck Exam Neck Exam: absent: Meningismus - Respiratory Exam Respiratory Exam: Decreased Breath Sounds Additional comments: right sided anterior chest wall port in place - Cardiovascular Exam Cardiovascular Exam: +S1, +S2 - GI/Abdominal Exam GI & Abdominal Exam: Soft. absent: Tenderness Assessment and Plan - Assessment and Plan (Free Text) Plan: Assessment Severe Sepsis with febrile neutropenia, due to pancolitis, with c. 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 diff is positive and will continue PO Vancomycin day 9 - since she has improved, we can d/c - should complete 10-14 days will continue monitor clinically overall prognosis is poor
[2018-01-02 16:42] VITALS: BP 100/61; PULSE 104; RESP 20; TEMP 99; O2SAT 93
[2018-01-02] MEDS: Oxycodone/Acetaminophen 5/325 mg Tab PO PRN (17:56)
--- NOTE | 2018-01-04 05:54 | DS ---
HOSPITAL COURSE: The patient is a 72-year-old female admitted to the intensive care unit on 12/24/2017 with severe pancytopenia and presumed sepsis. The patient was empirically started on IV antibiotics, was seen in consultation by infectious disease as well as by hematology/oncology. The patient has past medical history of metastatic cholangiocarcinoma. She received intravenous Neupogen for her neutropenia. She had an uneventful hospital course with improvement. Her hospital course was complicated by Clostridium difficile colitis, for which she received oral vancomycin and became medically stable for discharge to hospice care on 01/02/2018. Discharged to [facility] for hospice care. PHYSICAL EXAMINATION: VITAL SIGNS: Vital signs are as per progress note of 01/02/2018. IMPRESSION: 1. Metastatic cholangiocarcinoma, status post biliary stent placement. 2. Febrile neutropenia and pancytopenia. 3. Clostridium difficile colitis. PLAN: The patient was discharged to [facility] on the following medications; albuterol inhaler, Rhinocort nasal spray, Advair Diskus 250/50. She will be maintained on a heart-healthy diet. Activities per the rehab facility. DARIEN Light MD
== END 2018-01-02 18:56 | DRG 872 ==
LOC: ED 09:54 → ERH 16:26 → ICU 21:01 → 5RSO 12-29 15:07
PROVIDERS: ADMIT Internal Medicine; ATTEND Internal Medicine
PROC: 30233K1 Transfusion of Nonautologous Frozen Plasma into Peripheral Vein, Percutaneous Approach (ICD-10-PCS; principal; 2017-12-24)
PROC: 30233N1 Transfusion of Nonautologous Red Blood Cells into Peripheral Vein, Percutaneous Approach (ICD-10-PCS; 2017-12-25)
PROC: 6A550Z2 Pheresis of Platelets, Single (ICD-10-PCS; 2017-12-25)
PROC: 0T9B70Z Drainage of Bladder with Drainage Device, Via Natural or Artificial Opening (ICD-10-PCS; 2017-12-30)
DX: A41.9 Sepsis, unspecified organism (principal); A04.72 Enterocolitis due to Clostridium difficile, not specified as recurrent; C22.1 Intrahepatic bile duct carcinoma; C78.7 Secondary malignant neoplasm of liver and intrahepatic bile duct; D61.818 Other pancytopenia; K83.0 Cholangitis; K51.90 Ulcerative colitis, unspecified, without complications; R18.8 Other ascites; B37.0 Candidal stomatitis; D70.3 Neutropenia due to infection; R65.20 Severe sepsis without septic shock; R50.81 Fever presenting with conditions classified elsewhere; J44.9 Chronic obstructive pulmonary disease, unspecified; M31.6 Other giant cell arteritis; K74.60 Unspecified cirrhosis of liver; M19.90 Unspecified osteoarthritis, unspecified site; M79.7 Fibromyalgia; G43.909 Migraine, unspecified, not intractable, without status migrainosus; E87.6 Hypokalemia; R33.9 Retention of urine, unspecified; J32.9 Chronic sinusitis, unspecified; H91.8X2 Other specified hearing loss, left ear; M06.9 Rheumatoid arthritis, unspecified; Z66 Do not resuscitate; Z88.6 Allergy status to analgesic agent; Z86.19 Personal history of other infectious and parasitic diseases; Z87.891 Personal history of nicotine dependence